=== PATIENT | female | born 1955 | race African-American/Black ===

== ENCOUNTER 2016-03-30 09:15 | Inpatient (IN) ==
[2016-03-30] MEDS ORDERED: FUROSEMIDE 100 MG/10 ML VIAL IV STA (09:32)
[2016-03-30] MEDS ORDERED: MORPHINE 2 MG/1 ML SYRINGE IV STA (09:55)
[2016-03-30 09:56] LABS: Allen Test Positive
[2016-03-30] MEDS ORDERED: MORPHINE 2 MG/1 ML SYRINGE ONE (09:56)
[2016-03-30 09:57] LABS: ABG Base Excess 20.4 MMOL/L (-2.5-2.5); ABG HCO3 44.6 MMOL/L (20-26); ABG PO2 59.9 MM HG (80-95); ABG TCO2 51.3 MMOL/L (23-27)
[2016-03-30 09:59] LABS: ABG PH 7.209 (7.35-7.45)
[2016-03-30] MEDS ORDERED: FUROSEMIDE 100 MG/10 ML VIAL ONE (10:06)
[2016-03-30 10:08] LABS: Basophils % 0.2 % (0.0-0.8); Eosinophils % 0.1 % (0.00-10.9); Hematocrit 44.8 VOL% (35.7-47.0); Hemoglobin 12.7 GM/DL (12.0-16.0); Immature Granulocytes % 1.6 %; Immature Granulocytes Absolute 0.15 #; Lymphocytes # 1.2 10*3/uL (1.4-4.0); Lymphocytes % 12.7 % (21.3-54.2); Mean Corpuscular HGB Conc 28.3 GM/DL (32-36); Mean Corpuscular Hemoglobin 28 PG (27-34); Mean Platelet Volume 10.1 FL (9.6-12.0); Monocytes # 0.5 10*3/uL (0.11-0.8); Monocytes % 4.9 % (1.7-12.7); NRBC # 0.03 10*3/uL; Neutrophils # 7.7 10*3/uL (1.4-7.4); Neutrophils % 80.5 % (38.7-73.9); Platelet Count 209 T/CUMM (130-400); Red Blood Count 4.62 MC/CUMM (3.8-5.5); Red Cell Distribution Width 15.3 % (9.3-17.3); White Blood Count 9.6 T/CUMM (4-12)
--- NOTE | 2016-03-30 10:24 | EKG Report ---
Stationary ECG Study [facility] ER Test Date: 03/30/2016 10:23:10 AM Pat Name: TAMARA CLARK Department: Room: 112 Gender: F Accounts Payable Representative: LETICIA : 1955 Requested by: Moody Gerardo Order Number: [id number] Reading MD: ARNULFO ALMENDAREZ Intervals [place] Rate: 84 P: 71 NC: 163 QRS: 96 QRSD: 99 T: 55 QT: 366 QTc: 407 Interpretive Statements SINUS RHYTHM WITH OCCASIONAL VENTRICULAR PREMATURE COMPLEXES WITH OCCASIONAL SUPRAVENTRICULAR PREMATURE COMPLEXES Electronically Signed On 04-01-16 14:44:25 MANAGER WINTER by ARNULFO ALMENDAREZ [email or web address]
[2016-03-30 10:45] LABS: Alanine Aminotransferase 25 U/L (13-56); Albumin 3.3 G/DL (3.4-5.0); Alkaline Phosphatase 73 U/L (45-117); Aspartate Amino Transferase 17 U/L (0-37); Blood Urea Nitrogen 27 MG/DL (7-18); Calcium 8.5 MG/DL (8.5-10.1); Glucose 122 MG/DL (74-106); Osmolality,Calculated 280.7 MOS/KG (273-304); Potassium 4.4 MMOL/L (3.5-5.1); Sodium 138 MMOL/L (136-145); Total Protein 7.8 G/DL (6.4-8.3); Troponin I Only 0.027 NG/ML (0.00-0.045)
[2016-03-30] MEDS ORDERED: AMIODARONE 150 MG/3 ML VIAL ONE (10:45)
[2016-03-30] MEDS ORDERED: EPINEPHrine 1 MG/ML VIAL ONE (10:45)
[2016-03-30] MEDS ORDERED: ETOMIDATE 20 MG/10 ML VIAL IV ONE (10:56)
[2016-03-30] MEDS ORDERED: SUCCINYLCHOLINE 200 MG/10 ML VIAL ONE (10:57)
[2016-03-30] MEDS ORDERED: MIDAZOLAM 2 MG/2 ML VIAL ONE ×2 (11:00→12:19)
--- NOTE | 2016-03-30 11:08 | EKG Report ---
Stationary ECG Study [facility] ER Test Date: 03/30/2016 10:53:59 AM Pat Name: TAMARA CLARK Department: Room: 112 Gender: F Faculty Neuropsychologist: LETICIA : 1955 Requested by: Moody Gerardo Order Number: [id number] Reading MD: ARNULFO ALMENDAREZ Intervals [place] Rate: 69 P: 77 IA: 157 QRS: 62 QRSD: 127 T: 85 QT: 359 QTc: 377 Interpretive Statements SINUS RHYTHM LEFT ATRIAL ABNORMALITY Electronically Signed On 04-01-16 15:07:39 COMBAT SYSTEMS OPERATOR by ARNULFO ALMENDAREZ [email or web address]
--- NOTE | 2016-03-30 11:11 | Emergency Department Note ---
ISerafin Brittany, am scribing for, and in the presence of, Sherif Leyva MD 09:36. Gordon Ortiz Doug C, MD, personally performed the services described in this documentation, ascribed by Reyna Betancourt in my presence, and it is both accurate and complete . Arrival - Arrival Chief Complaint: Altered Mental Status Stated Complaint: DIFFICULTY BREETHING/SWELLING ED Nursing Triage Note: Family states that she has been drowsy and having decreased LOC x 3 days - family states that they think that it is from some medicine that she is taking - family did not bring meds and does not know name of the meds that she is taking - pt is on home O2 - family states that she has a lung disease - family is unsure of any of her medical HX Mode of Arrival: Wheelchair Limitations: No Limitations Source: Patient, RN Notes Reviewed Time Seen by Provider: 03/30/16 09:32 - History of Present Illness HPI Narrative: Patient's 60-year-old black female brought to emergency room by family for decreased responsiveness. Daughter states she has had more dyspnea than usual though she is always dyspneic. She does have a history of asthma but she never had a history of CO2 retention according to the daughter. She does have a history of congestive heart failure as well. Patient was responsive but confused. Arterial blood gas show prominent hypercarbia. She has not had any fever chills according the family and she has not had any complaints of chest pain. Her cough is not increased. Onset (ago): day(s) (3) Date of Last Menstrual Period: eusebia Allergies/Adverse Reactions: Allergies Allergy/AdvReac Type Severity Reaction Status Date / Time No Known Allergies Allergy Unverified 03/30/16 09:17 Home Medications: Home Medications Medication Instructions Recorded Confirmed Type Azithromycin [Azithromycin Z Pack] 250 mg PO DAILY 03/30/16 03/30/16 History Carvedilol [Coreg] 25 mg PO BID 03/30/16 03/30/16 History Furosemide Tab [Lasix Tab] 40 mg PO TID 03/30/16 03/30/16 History Lisinopril 40 mg PO BID 03/30/16 03/30/16 History Montelukast Tab [Singulair Tab] 10 mg PO DAILY 03/30/16 03/30/16 History amLODIPine [Norvasc] 10 mg PO DAILY 03/30/16 03/30/16 History predniSONE TAB [PredniSONE] 40 mg PO DAILY 03/30/16 03/30/16 History Review of System - Review of System 12 point system: reviewed and no additional remarkable complaints except as stated - Review of System Constitutional: Present: as per HPI. Absent: chills, fever Eyes: Absent: vision change Head/Ears/Nose/Throat: Present: sore throat. Absent: nasal drainage Respiratory: Present: respiratory distress. Absent: cough Cardiovascular: Absent: chest pain Gastrointestinal: Absent: abdominal pain, nausea, vomiting, diarrhea, constipation Genitourinary female: Absent: dysuria, frequency, urgency Musculoskeletal: Absent: arm pain, back pain, leg pain, neck pain Skin: Absent: rash Neurological: Present: confusion. Absent: headache Psychiatric: Absent: anxiety, depression Endocrine: Absent: fatigue Hematological/Lymphatic: Absent: easy bleeding, easy bruising Medical,Surgical,& Family Hx - Medical History Cardio: History of: Hypertension Respiratory: History of: Asthma, Respiratory Problems ("lung disease") - Surgical History Surgical History: noncontributory - Family History Family History: noncontributory - Social History Smoking Status: Never smoker Frequency of Alcohol Use: None Type of Drug Use: None Exam Vital Signs: Vital Signs Temperature 98.6 F 03/30/16 09:18 Pulse Rate 90 03/30/16 09:18 Respiratory Rate 40 H 03/30/16 09:36 Blood Pressure 172/104 03/30/16 09:18 O2 Sat by Pulse Oximetry 92 L 03/30/16 09:18 - General General appearance: alert (patient is alert, but is slightly confused), in no apparent distress, lethargic - Head Head exam: Present: atraumatic, normocephalic - Eye Eye exam: Present: normal appearance, PERRL, EOMI - ENT ENT exam: Present: normal oropharynx, mucous membranes moist - Neck Neck exam: Present: full ROM, trachea midline. Absent: normal inspection - Expanded Expanded Neck Exam Neck exam focused ED: Present: JVD - Chest Chest inspection: Present: normal inspection, symmetric chest wall rise - Respiratory Respiratory exam: Present: rales (Bilateral). Absent: normal lung sounds bilaterally - Cardiovascular Cardiovascular exam: Present: regular rate, normal rhythm, normal heart sounds ( Heart sounds are distant). Absent: murmur, rubs, gallop - Abdominal Exam Abdominal exam: Present: soft, normal bowel sounds. Absent: distention, tenderness, guarding, rebound - Extremities Exam Extremities exam: Present: normal inspection, full ROM - Back Exam Back exam: Present: normal inspection, full ROM - Neurological Exam Neurological exam: Present: alert, CN II-XII intact. Absent: oriented X3 ( patient is slightly confused), motor sensory deficit - Psychiatric Psychiatric exam: Present: normal affect - Skin Skin exam: Present: warm, dry, intact, normal color Course Course Narrative: Patient's confusion was suspected to be secondary to hypercarbia and her arterial blood gases confirm this. Patient was placed on BiPAP briefly with no improvement. I discussed with the family the need to intubate her and they agreed. Patient was intubated with a 7 mm ET tube with ET tube at 22 mm at the lip. Patient was found to have bilateral breath sounds and her CO2 indicator was positive. She did develop some bradycardia postintubation requiring brief CPR. She responded to epinephrine. She did have brief runs of V. tach which was controlled with 1 dose of amiodarone. She has been hyperventilated to help resolve her hypercarbia. I discussed her circumstance with family and they were certainly agreeable to her being managed on the ventilator. I discussed patient with Dr. Camacho he will will see the patient here in the emergency department and evaluate for admission. Procedures - Intubation Time out performed: Yes sedative: Etomidate Mg Given: 20 paralytic: Succinylcholine Mg Given: 100 Laryngoscope: fiber optic video scope ET Tube Size: 7 ET Tube Uncuffed: No Tube Secured Depth (cm): 22 Tube Secured Location: lips Tube Placement Confirmation: visualized tube passing through cords, equal breath sounds bilaterally, confirmation detector color change Patient Tolerated Procedure: well Intubation Complications: other (Bradycardia) Results - Labs CBC & BMP: 03/30/16 10:01 03/30/16 10:01 Lab Results: I have reviewed the patients labs Labs: Laboratory Tests 03/30/16 09:50 ABG pH 7.209 L* ABG pCO2 142.0 H* ABG pO2 59.9 L ABG HCO3 44.6 H ABG Total CO2 51.3 H ABG O2 Saturation 82.0 L ABG Base Excess 20.4 H FiO2 28.00 Laboratory Tests 03/30/16 10:03 POC Glucose 127 H Laboratory Tests 03/30/16 10:01 WBC 9.6 RBC 4.62 Hgb 12.7 Hct 44.8 MCV 97.0 MCH 28 MCHC 28.3 L RDW 15.3 Plt Count 209 MPV 10.1 Neut % (Auto) 80.5 H Lymph % (Auto) 12.7 L [place] % (Auto) 4.9 Eos % (Auto) 0.1 Baso % (Auto) 0.2 Neut # (Auto) 7.7 H Lymph # (Auto) 1.2 L [place] # (Auto) 0.5 Eos # (Auto) 0.0 Baso # (Auto) 0.0 Immature Gran % 1.6 Nucleated RBC % 0.3 Immature Gran # 0.15 Nucleated RBCs # 0.03 Laboratory Tests 03/30/16 10:01 D-Dimer, Quantitative <= 0.5 - EKG EKG results: interpreted by ALEXIS, sinus rhythm (84 bpm), no acute changes - Diagnostic Findings Procedure: Chest x-ray: report reviewed by me (Cardiomegaly) Disposition Clinical Impression: Respiratory failure, Hypercarbia Case discussed with: patient's family Disposition: Still a Patient Condition: Guarded Time of Disposition: 11:10
[2016-03-30] MEDS ORDERED: MIDAZOLAM 10 MG/2 ML VIAL ONE (11:24)
--- NOTE | 2016-03-30 11:38 | XRay Report ---
Exam: XR chest 1V portable Indication: Cardiomegaly, shortness of breath Comparison study: 09/14/2013 Findings: Cardiac silhouette is enlarged, similar to prior. Mild tortuosity descending thoracic aorta appears similar to prior. Minimal perihilar and basilar interstitial opacities may represent atelectasis or degree of mild underlying edema. Infectious/limited infiltrates are less likely consideration. There is no pneumothorax. Impression: Cardiomegaly with perihilar and basilar opacities likely represent atelectasis although pulmonary degenerative changes and/or basilar infiltrates are not entirely excluded. PROCEDURE INTERPRETED AT [facility] DEPARTMENT OF RADIOLOGY Final Report Signed by: Noé Cordova
--- NOTE | 2016-03-30 11:49 | Hospitalist History & Physical ---
Assessment and Plan - Time spent with patient Time spent with patient: Greater than 30 minutes (1) Congestive heart failure with cardiomyopathy Status: Acute Current Visit: Yes (2) Hypertension Status: Acute Current Visit: Yes (3) Hypercarbia Status: Acute Current Visit: Yes (4) Respiratory failure Status: Acute Current Visit: Yes History of Present Illness Chief complaint: shortness of breath with worsening mentation History of present illness: Ms. Welsh is a 60 year old -Citizen Of [place] female brought to emergency room by family for decreased responsiveness. Patient is currently intubated and information is obtained from her daughter. Daughter states she has had more dyspnea than usual though she is always dyspneic. She does have a history of asthma but she never had a history of CO2 retention according to the daughter. She does have a history of congestive heart failure as well. Patient was responsive but confused. Arterial blood gas show prominent hypercarbia. She has not had any fever chills according the family and she has not had any complaints of chest pain. Her cough is not increased. Patient woke the daughter up at about 3 and the morning complaining of worsening shortness of breath. Patient started a states that patient has never been intubated in the past but does have home oxygen. Patient does not smoke. There is a history of heart failure but I can't get to see any records in this system. The PCI system is not available. According to the daughter patient was seeing Dr. Santana Bray from pulmonary and I see another finished metal repairer. She does not recall seeing a wet mixer. Her chest x-ray shows some basilar atelectasis versus infiltrate there is also perihilar area that seems to have increased markings, she also has cardiomegaly although this is an AP film. She is being admitted to our service for further management. Assessment and plan for 03/30/2016: Acute hypercapnic respiratory failure Probably component of congestive heart failure exacerbation Cardiomegaly on chest x-ray Hypertension Patient is being admitted to the intensive care unit. She will be sedated we will go ahead and start her on antibiotics especially for aspiration pneumonia since I did see that she had vomited some. She will be placed on nebulizer treatments and pulmonary will be consulted for vent management. We will also get an echocardiogram and she'll be gently diuresed. Lovenox will be used for DVT prophylaxis. Rest of the management will be based on patient's medical condition laboratory and radiological data. Home Medications Medication Instructions Recorded Confirmed Type Azithromycin [Azithromycin Z Pack] 250 mg PO DAILY 03/30/16 03/30/16 History Carvedilol [Coreg] 25 mg PO BID 03/30/16 03/30/16 History Furosemide Tab [Lasix Tab] 40 mg PO TID 03/30/16 03/30/16 History Lisinopril 40 mg PO BID 03/30/16 03/30/16 History Montelukast Tab [Singulair Tab] 10 mg PO DAILY 03/30/16 03/30/16 History amLODIPine [Norvasc] 10 mg PO DAILY 03/30/16 03/30/16 History predniSONE TAB [PredniSONE] 40 mg PO DAILY 03/30/16 03/30/16 History Allergies Allergy/AdvReac Type Severity Reaction Status Date / Time No Known Allergies Allergy Unverified 03/30/16 09:17 Medical,Surgical,& Family Hx - Medical History Cardio: History of: CHF, Hypertension Respiratory: History of: Asthma, Respiratory Problems ("lung disease") - Surgical History Reproductive Surgeries: Surgical HX of;: Hysterectomy - Social History Smoking Status: Never smoker Frequency of Alcohol Use: None Type of Drug Use: None Lives With:: Children Functional capacity: independent ambulation ROS unobtainable: due to endotracheal tube Exam - Constitutional Vitals: Period Temp Pulse Resp BP Sys/Richards Pulse Ox Last 24 Hr 98.6 F-98.6 F 90-90 22-40 172-172/104-104 92 Exam: Gen.: In no acute distress, mildly sedated Head and neck: Pupils are reactive neck is supple Cardiovascular: S1-S2 with regular rate and rhythm Respiratory: Lungs reveal mild rales and rhonchi but no significant wheezing Abdomen: Soft, bowel sounds are positive Extremities: Positive edema Neuro: Intubated and sedated Results - Labs CBC & BMP: 03/30/16 10:01 03/30/16 10:01 Lab Results: I have reviewed the past 24 hour labs
[2016-03-30] MEDS ORDERED: MIDAZOLAM 10 MG/2 ML VIAL IV STA (11:56)
[2016-03-30 12:00] LABS: Apearance,Urine CLEAR (Clear); Bacteria,Urine Occasional /HPF (Few); Bilirubin,Urine Negative (Negative); Blood, Urine Negative (Negative); Glucose,Urine (UA) Negative (Negative); Hyaline Casts,Urine 14 /LPF (0-3); Ketones,Urine Negative (Negative); Mucus,Urine Occasional /LPF (Occasional); Nitrite,Urine Negative (Negative); Protein,Urine 100 MG/DL; RBC,Urine <1 /HPF (0-4); Squamous Epithelial Cell,Urine Occasional /HPF (0-10); Urine Color Yellow (Yellow); WBC,Urine 1 /HPF (0-6)
[2016-03-30] MEDS ORDERED: MIDAZOLAM 100 MG in SODIUM CHLORIDE 0.9% 80 ML IV SCH (12:00)
[2016-03-30 12:13] LABS: Barbiturates Screen,Urine Negative (Negative); Benzodiazepines Screen,Urine Negative (Negative); Cannabinoid Screen,Urine Negative (Negative); Opiate Screen,Urine Negative (Negative); Phencyclidine Screen,Urine Negative (Negative)
[2016-03-30 12:15] LABS: ABG Base Excess 20.7 MMOL/L (-2.5-2.5); ABG HCO3 45.5 MMOL/L (20-26); ABG TCO2 39.7 MMOL/L (23-27)
[2016-03-30 12:16] LABS: ABG PH 7.614 (7.35-7.45)
[2016-03-30] MEDS ORDERED: MIDAZOLAM 2 MG/2 ML VIAL IV STA (12:31)
--- NOTE | 2016-03-30 12:51 | XRay Report ---
Exam: XR chest 1V portable Indication: Intubated, respiratory failure Comparison study: 03/30/2016 at 0950 hours Findings: Cardiac silhouette is enlarged, similar to prior. There is been interval placement of an endotracheal tube terminates 4 cm from the roman. Esophagogastric tube is also noted and travels below the field of view. Perihilar and basilar interstitial opacities are new from the prior study and may represent pulmonary edema changes. There is no pneumothorax. No significant pleural effusion is identified. Impression: Cardiomegaly with findings suggestive of pulmonary edema changes. Endotracheal and esophagogastric tubes as noted above. PROCEDURE INTERPRETED AT [facility] [place] DEPARTMENT OF RADIOLOGY Final Report Signed by: Noé Cordova
[2016-03-30] MEDS: PANTOPRAZOLE 40 MG VIAL IV SCH (13:45)
[2016-03-30] MEDS: PIPERACILLIN/TAZOBACTAM 3,375 MG in SODIUM CHLORIDE 0.9% 100 ML IV SCH ×2 (13:45→19:22)
[2016-03-30] MEDS: methylPREDNISolone SOD SUC 40 MG/1 ML VIAL IV SCH ×2 (13:45→18:04)
[2016-03-30] MEDS: ENOXAPARIN 40 MG/0.4 ML SYRINGE SUBCUT SCH (13:46)
[2016-03-30 13:52] LABS: ABG Base Excess 22.5 MMOL/L (-2.5-2.5); ABG HCO3 47.6 MMOL/L (20-26); ABG PCO2 46.7 MM HG (35-48); ABG TCO2 41.5 MMOL/L (23-27)
[2016-03-30 13:53] LABS: ABG PH 7.619 (7.35-7.45)
[2016-03-30] MEDS: PROPOFOL 1,000 MG/100 ML BOTTLE IV SCH ×2 (14:30→21:33)
[2016-03-30] MEDS: ALBUTEROL/IPRATROPIUM 3 ML NEB RESP TX SCH ×3 (14:47→22:54)
[2016-03-30 15:04] LABS: ABG Base Excess 22.9 MMOL/L (-2.5-2.5); ABG HCO3 47.9 MMOL/L (20-26); ABG Oxygen Saturation 98.5 % (95-100); ABG PCO2 55.9 MM HG (35-48); ABG PH 7.558 (7.35-7.45); ABG PO2 96.3 MM HG (80-95); ABG TCO2 43.3 MMOL/L (23-27); Allen Test Positive; Pt O2 Delivery Device Ventilator
[2016-03-30] MEDS: AZITHROMYCIN INJ 500 MG in SODIUM CHLORIDE 0.9% 250 ML IV SCH (17:27)
--- NOTE | 2016-03-30 19:55 | Pulmonology Consult Note ---
Assessment and Plan (1) Acute and chronic respiratory failure with hypercapnia Status: Acute Assessment and plan: With her marked hypercarbia and decreased level of consciousness, she clearly has acute respiratory failure. Her pH is alkalotic despite hypercarbia which would indicate chronic respiratory failure. Because of the respiratory failure is not clear. She is said to have never smoked. She does not appear to be having a severe asthma attack. She may have obesity hypoventilation syndrome or some form of central hypoventilation. We need to evaluate her brain. At this point I will give her Diamox to try to correct her electrolyte abnormalities. We will ventilate her until her mental status improves. We need further past history when available. Current Visit: Yes (2) Asthma Status: Acute Assessment and plan: Reportedly has history of asthma. She certainly does not sound tight. We'll treat for asthma exacerbation with steroids bronchodilators plus empiric antibiotics. Add Aminophyllin. Current Visit: Yes (3) Congestive heart failure with cardiomyopathy Status: Acute Assessment and plan: Agree with diuresing her. Her BNP was somewhat elevated. Echocardiogram is pending. May need cardiology to see. She has an abnormal contour to her heart on the chest x-ray. Current Visit: Yes History of Present Illness Chief complaint: respiratory failure History of present illness: Ms. Welsh is a 60 year old female who was noted to have decreased level of consciousness after having increased shortness of breath. She was found to be profoundly hypercarbic and was intubated. Also had hypotension that responded to epinephrine after the intubation. She was given amiodarone for arrhythmias. She has a history of asthma and congestive heart failure. Reportedly has never been a smoker. Has been followed in the past by Dr. Bray. We will need to get records when available. She has not had any recent chills or fever according to the family. The patient is on oxygen at home. She has no history of previous mechanical ventilation. Home Medications Medication Instructions Recorded Confirmed Type Azithromycin [Azithromycin Z Pack] 250 mg PO DAILY 03/30/16 03/30/16 History Carvedilol [Coreg] 25 mg PO BID 03/30/16 03/30/16 History Furosemide Tab [Lasix Tab] 40 mg PO TID 03/30/16 03/30/16 History Lisinopril 40 mg PO BID 03/30/16 03/30/16 History Montelukast Tab [Singulair Tab] 10 mg PO DAILY 03/30/16 03/30/16 History amLODIPine [Norvasc] 10 mg PO DAILY 03/30/16 03/30/16 History predniSONE TAB [PredniSONE] 40 mg PO DAILY 03/30/16 03/30/16 History Allergies Allergy/AdvReac Type Severity Reaction Status Date / Time No Known Allergies Allergy Unverified 03/30/16 09:17 ROS unobtainable: due to endotracheal tube Exam (Pulmonay) H&P - Constitutional Vitals: Period Temp Pulse Resp BP Sys/Richards Pulse Ox Last 24 Hr 98.1 F-98.6 F 60-75 8-21 111-166/75-98 100-100 Exam: Patient is sedated and unresponsive. Vital signs blood pressure 160/80 pulse 80 respirations 16 oxygen saturation 99% and patient is afebrile. Pupils react to light. She does try to close her eyes when I attempt to look at her eyes. Face symmetrical. Orotracheal tube in place. Neck is supple no bruits. Chest reveals a few scattered rhonchi. She is not tight. Good breath sounds bilaterally. Heart normal rate rhythm no murmurs or rubs no gallops. Abdomen soft nontender no masses bowel sounds present. Extremities no clubbing or cyanosis she does have 2+ peripheral edema. Medical,Surgical,& Family Hx - Medical History Cardio: History of: Cerebrovascular Disease, CHF, Hypertension Neurology: History of: Cerebrovascular Accident (2007) Respiratory: History of: Asthma, Respiratory Problems ("lung disease") - Surgical History Reproductive Surgeries: Surgical HX of;: Hysterectomy - Family History Family History: Reports;: Family Diabetes, Family Heart Disease, Family Hypertension, Additional Family History (DEMENTIA, COPD) - Social History Smoking Status: Never smoker Frequency of Alcohol Use: None Type of Drug Use: None Results - Labs CBC & BMP: 03/30/16 10:01 03/30/16 10:01 Lab Results: I have reviewed the past 24 hour labs - Diagnostic Findings Procedure: Chest x-ray: image reviewed by me (ET tube good position. Cardiomegaly. Increased interstitial markings consistent with pulmonary edema.)
[2016-03-30] MEDS ORDERED: AMINOPHYLLINE 250 MG in SODIUM CHLORIDE 0.9% 100 ML IV ONE (21:00)
[2016-03-30] MEDS: AMINOPHYLLINE 1,000 MG in SODIUM CHLORIDE 0.9% 460 ML IV SCH (21:34)
[2016-03-30] MEDS: FUROSEMIDE 40 MG/4 ML VIAL IV SCH (22:51)
[2016-03-31] MEDS: PIPERACILLIN/TAZOBACTAM 3,375 MG in SODIUM CHLORIDE 0.9% 100 ML IV SCH ×4 (01:23→18:32)
[2016-03-31] MEDS: methylPREDNISolone SOD SUC 40 MG/1 ML VIAL IV SCH ×4 (01:26→18:33)
[2016-03-31] MEDS: ALBUTEROL/IPRATROPIUM 3 ML NEB RESP TX SCH ×6 (03:36→23:59)
[2016-03-31 06:01] LABS: ABG PCO2 51.4 MM HG (35-48); Allen Test Positive; Pt O2 Delivery Device Ventilator
[2016-03-31 06:02] LABS: ABG HCO3 43.4 MMOL/L (20-26); ABG PO2 80.9 MM HG (80-95); ABG TCO2 38.9 MMOL/L (23-27)
[2016-03-31 06:13] LABS: Hematocrit 41.5 VOL% (35.7-47.0); Hemoglobin 12.9 GM/DL (12.0-16.0); Immature Granulocytes % 0.4 %; Immature Granulocytes Absolute 0.04 #; Lymphocytes # 0.8 10*3/uL (1.4-4.0); Lymphocytes % 8.9 % (21.3-54.2); Mean Corpuscular HGB Conc 31.1 GM/DL (32-36); Mean Corpuscular Hemoglobin 27 PG (27-34); Mean Corpuscular Volume 88.1 FL (87-102); Monocytes # 0.6 10*3/uL (0.11-0.8); Neutrophils # 7.7 10*3/uL (1.4-7.4); Neutrophils % 84.7 % (38.7-73.9); Platelet Count 198 T/CUMM (130-400); Red Blood Count 4.71 MC/CUMM (3.8-5.5); Red Cell Distribution Width 15.5 % (9.3-17.3); White Blood Count 9.1 T/CUMM (4-12)
[2016-03-31 06:41] LABS: Calcium 8.9 MG/DL (8.5-10.1); Magnesium 1.8 MG/DL (1.8-2.4); Potassium 3.2 MMOL/L (3.5-5.1)
[2016-03-31] MEDS: PROPOFOL 1,000 MG/100 ML BOTTLE IV SCH ×3 (06:56→16:49)
--- NOTE | 2016-03-31 06:57 | Pulmonology Progress Note ---
Pulmonary - PN: Subj Interval history: This 60-year-old black female came in with decreased level of consciousness and required mechanical ventilation. She had severe hypercarbia. She reportedly has a history of asthma but does not have COPD. She's only mildly obese. She could have obesity hypoventilation syndrome. She has an abnormal cardiac shadow and evidence of left atrial enlargement on EKG. We need echocardiogram. We need neurology to see. Not clear why she would have chronic hypoventilation. She has seen Dr. Bray in the past and we need records from his clinic for previous evaluations. At the present time she is on the ventilator. ABGs acceptable although she has a marked metabolic alkalosis. Trying to correct that. We'll hold sedation and start weaning her today. I'm going to change her from propofol to Precedex. Exam (Progress Note) - Constitutional Vitals: Period Temp Pulse Resp BP Sys/[place] Pulse Ox Last 24 Hr 97.1 F-98.6 F 60-85 8-21 111-168/71-98 100-100 Exam: She is sedated. However she hold her eyes closed when I try to look at her pupils. They do react to light. Face is symmetrical. Vital signs are normal. Blood pressure 150/75. Pulse is around 70 with frequent premature beats. Neck supple no bruits. Chest reveals only minimal rhonchi. She's not tight. Heart irregular without murmur. Abdomen soft nontender no masses. Bowel sounds present. Extremities no clubbing cyanosis. She has trace of edema, definitely less than yesterday. Results - Labs CBC & BMP: 03/31/16 05:14 03/31/16 05:14 Lab Results: I have reviewed the past 24 hour labs - Diagnostic Findings Procedure: Chest x-ray: image reviewed by me (ETT in good position. He has bilateral lower lobe infiltrates today.) Assessment and Plan (1) Acute and chronic respiratory failure with hypercapnia Status: Acute Assessment and plan: With her marked hypercarbia and decreased level of consciousness, she clearly has acute respiratory failure. Her pH is alkalotic despite hypercarbia which would indicate chronic respiratory failure. Because of the respiratory failure is not clear. She is said to have never smoked. She does not appear to be having a severe asthma attack. She may have obesity hypoventilation syndrome or some form of central hypoventilation. We need to evaluate her brain. At this point I will give her Diamox to try to correct her electrolyte abnormalities. We will ventilate her until her mental status improves. We need further past history when available. 03/31/16 acute on chronic respiratory failure. The etiology of her chronic hypercapnia is not clear. Evaluating today for a central cause. She does have infiltrates on the films today. Appears to have a bilateral pneumonia. Current Visit: Yes (2) Asthma Status: Acute Assessment and plan: Reportedly has history of asthma. She certainly does not sound tight. We'll treat for asthma exacerbation with steroids bronchodilators plus empiric antibiotics. Add Aminophyllin. 03/31/16 she's not tight. Continuing with above regimen. Current Visit: Yes (3) Congestive heart failure with cardiomyopathy Status: Acute Assessment and plan: Agree with diuresing her. Her BNP was somewhat elevated. Echocardiogram is pending. May need cardiology to see. She has an abnormal contour to her heart on the chest x-ray. 03/31/16 white echo. It appears that she has left atrial enlargement on chest x- ray and EKG. We'll see what the echo shows. Current Visit: Yes (4) Pneumonia of both lower lobes Status: Acute Assessment and plan: She does have basilar infiltrates bilaterally. This despite the fact that we have diuresed her. We'll start on appropriate antibiotics. Current Visit: Yes
--- NOTE | 2016-03-31 07:28 | XRay Report ---
XR chest 1V portable Indication: Respiratory failure Comparison: 30 March 2016 Findings: The heart and mediastinum are stable in size and configuration. Lines and tubes are unchanged in position. The pulmonary vascularity is slightly increased with bilateral increased interstitial lung density. No other lung infiltrates, effusions, pneumothorax or other abnormality is demonstrated. Impression: Findings suggest mild cardiac decompensation. PROCEDURE INTERPRETED AT [facility] DEPARTMENT OF RADIOLOGY Final Report Signed by: Dr. Sebastián Madrigal
[2016-03-31] MEDS ORDERED: DEXMEDETOMIDINE 200 MCG in SODIUM CHLORIDE 0.9% 48 ML IV SCH (07:30)
--- NOTE | 2016-03-31 08:35 | CT Report ---
CT brain Indication: Decreasing level of consciousness Comparison: None available Technique: Axial CT imaging of the brain is performed without contrast with 3 mm increments. Findings: No evidence of hemorrhage, mass mass effect midline shift or acute infarct seen. The brain parenchyma attenuation and differentiation appears within normal limits. The ventricles and cisterns are normal in caliber. No cranial or skull base abnormality is identified. Impression: No evidence of abnormality demonstrated. PROCEDURE INTERPRETED AT [facility] DEPARTMENT OF RADIOLOGY Final Report Signed by: Dr. Sebastián Madrigal
[2016-03-31] MEDS: PANTOPRAZOLE 40 MG VIAL IV SCH (09:41)
[2016-03-31] MEDS: MONTELUKAST 10 MG TABLET PO SCH (09:47)
[2016-03-31] MEDS: FUROSEMIDE 40 MG/4 ML VIAL IV SCH (09:54)
[2016-03-31] MEDS: AZITHROMYCIN INJ 500 MG in SODIUM CHLORIDE 0.9% 250 ML IV SCH (10:30)
--- NOTE | 2016-03-31 11:00 | Hospitalist Progress Note ---
Assessment and Plan (1) Congestive heart failure with cardiomyopathy Status: Acute Current Visit: Yes (2) Hypertension Status: Acute Current Visit: Yes (3) Hypercarbia Status: Acute Current Visit: Yes (4) Respiratory failure Status: Acute Current Visit: Yes Hospitalist: Subjective Interval history: Patient doing very well. She is responsive awake and alert and following commands. Assessment plan for 03/31/2016: Acute respiratory failure History of asthma Enlarged heart Patient is clinically much improved and hopefully can be extubated very soon. We are deferring this to pulmonary who is following her and is doing vent management. Mental status is back to normal and I've discontinued neurologic consult. Chest x-ray does show an enlarged heart and we are waiting echocardiogram. Continue Lasix for now. Continue antibiotics and nebulizer treatments Exam - Constitutional Vitals: Period Temp Pulse Resp BP Sys/Richards Pulse Ox Last 24 Hr 97.1 F-98.6 F 60-85 8-21 111-168/71-98 100-100 Exam: Gen.: In no acute distress, mildly sedated Head and neck: Pupils are reactive neck is supple Cardiovascular: S1-S2 with regular rate and rhythm Respiratory: Lungs reveal mild rales and rhonchi but no significant wheezing Abdomen: Soft, bowel sounds are positive Extremities: Positive edema Neuro: Intubated but follows commands Results - Labs CBC & BMP: 03/31/16 05:14 03/31/16 05:14 Lab Results: I have reviewed the past 24 hour labs
[2016-03-31] MEDS: ENOXAPARIN 40 MG/0.4 ML SYRINGE SUBCUT SCH (12:07)
[2016-03-31] MEDS: POTASSIUM CHLORIDE RIDER 10 MEQ in PREMIX 1 EACH IV PRN ×4 (16:00→20:16)
[2016-03-31] MEDS: AMINOPHYLLINE 1,000 MG in SODIUM CHLORIDE 0.9% 460 ML IV SCH (21:59)
[2016-04-01] MEDS: FUROSEMIDE 40 MG/4 ML VIAL IV SCH (01:34)
[2016-04-01] MEDS: PIPERACILLIN/TAZOBACTAM 3,375 MG in SODIUM CHLORIDE 0.9% 100 ML IV SCH ×5 (02:23→22:30)
[2016-04-01] MEDS: ALBUTEROL/IPRATROPIUM 3 ML NEB RESP TX SCH ×6 (03:40→23:52)
[2016-04-01 05:32] LABS: Hematocrit 43.9 VOL% (35.7-47.0); Hemoglobin 13.5 GM/DL (12.0-16.0); Immature Granulocytes % 0.6 %; Immature Granulocytes Absolute 0.07 #; Lymphocytes # 1.8 10*3/uL (1.4-4.0); Lymphocytes % 14.2 % (21.3-54.2); Mean Corpuscular HGB Conc 30.8 GM/DL (32-36); Mean Corpuscular Hemoglobin 27 PG (27-34); Mean Corpuscular Volume 89.2 FL (87-102); Mean Platelet Volume 10.3 FL (9.6-12.0); Monocytes # 1.1 10*3/uL (0.11-0.8); Monocytes % 9.2 % (1.7-12.7); Neutrophils # 9.4 10*3/uL (1.4-7.4); Platelet Count 198 T/CUMM (130-400); Red Blood Count 4.92 MC/CUMM (3.8-5.5); Red Cell Distribution Width 15.8 % (9.3-17.3); White Blood Count 12.4 T/CUMM (4-12)
[2016-04-01 05:52] LABS: ABG Base Excess 14.9 MMOL/L (-2.5-2.5); ABG HCO3 39.3 MMOL/L (20-26); ABG Oxygen Saturation 97.9 % (95-100); ABG PCO2 46.4 MM HG (35-48); ABG PH 7.546 (7.35-7.45); ABG PO2 100.9 MM HG (80-95); ABG TCO2 40.7 MMOL/L (23-27); Allen Test Positive; Pt O2 Delivery Device Ventilator
--- NOTE | 2016-04-01 06:52 | Pulmonology Progress Note ---
Pulmonary - PN: Subj Interval history: This 60-year-old black female came in with decreased level of consciousness and required mechanical ventilation. She had severe hypercarbia. She reportedly has a history of asthma but does not have COPD. She's only mildly obese. She could have obesity hypoventilation syndrome. She has an abnormal cardiac shadow and evidence of left atrial enlargement on EKG. We need echocardiogram. We need neurology to see. Not clear why she would have chronic hypoventilation. She has seen Dr. Bray in the past and we need records from his clinic for previous evaluations. At the present time she is on the ventilator. ABGs acceptable although she has a marked metabolic alkalosis. Trying to correct that. We'll hold sedation and start weaning her today. I'm going to change her from propofol to Precedex. 04/01/2016 patient is much more alert. Tolerating CPAP trials. Still has a pretty severe metabolic alkalosis. We will once again check mechanics and ABGs on CPAP trial. Try to get her extubated. Her potassium is a little older replacing that. We'll reduce Lasix. Continue with Diamox. Records from Dr. Bray's office showed that she has chronic obstructive lung disease and pulmonary hypertension. Also said to have congestive heart failure. They did not send any echocardiograms. Echo from here is pending. Exam (Progress Note) - Constitutional Vitals: Period Temp Pulse Resp BP Sys/Richards Pulse Ox Last 24 Hr 98.2 F-98.8 F 58-90 1-27 73-175/61-97 97-100 Exam: She is alert and responsive, off sedation. Face is symmetrical. Vital signs are normal. Pulse is around 70 with frequent premature beats. Neck supple no bruits. Chest reveals only minimal rhonchi. She's not tight. Heart irregular without murmur. Abdomen soft nontender no masses. Bowel sounds present. Extremities no clubbing cyanosis. She has trace of edema. Results - Labs CBC & BMP: 04/01/16 05:09 03/31/16 05:14 Lab Results: I have reviewed the past 24 hour labs - Diagnostic Findings Procedure: Chest x-ray: pending Assessment and Plan (1) Acute and chronic respiratory failure with hypercapnia Status: Acute Assessment and plan: With her marked hypercarbia and decreased level of consciousness, she clearly has acute respiratory failure. Her pH is alkalotic despite hypercarbia which would indicate chronic respiratory failure. Because of the respiratory failure is not clear. She is said to have never smoked. She does not appear to be having a severe asthma attack. She may have obesity hypoventilation syndrome or some form of central hypoventilation. We need to evaluate her brain. At this point I will give her Diamox to try to correct her electrolyte abnormalities. We will ventilate her until her mental status improves. We need further past history when available. 03/31/16 acute on chronic respiratory failure. The etiology of her chronic hypercapnia is not clear. Evaluating today for a central cause. She does have infiltrates on the films today. Appears to have a bilateral pneumonia. 04/01/16 she has diuresed vigorously. Bicarbonate level is down to 39, which is still somewhat elevated. Tolerating CPAP trials. We will see if we can get her extubated this morning. Current Visit: Yes (2) Asthma Status: Acute Assessment and plan: Reportedly has history of asthma. She certainly does not sound tight. We'll treat for asthma exacerbation with steroids bronchodilators plus empiric antibiotics. Add Aminophyllin. 03/31/16 she's not tight. Continuing with above regimen. 04/01/16 again she is not tight minimal expiratory rhonchi. Continuing steroids and bronchodilators. Current Visit: Yes (3) Congestive heart failure with cardiomyopathy Status: Acute Assessment and plan: Agree with diuresing her. Her BNP was somewhat elevated. Echocardiogram is pending. May need cardiology to see. She has an abnormal contour to her heart on the chest x-ray. 03/31/16 Await echo. It appears that she has left atrial enlargement on chest x- ray and EKG. We'll see what the echo shows. 04/01/16 echo is still pending. She has diuresed vigorously. Current Visit: Yes (4) Pneumonia of both lower lobes Status: Acute Assessment and plan: She does have basilar infiltrates bilaterally. This despite the fact that we have diuresed her. We'll start on appropriate antibiotics. 04/01/16 continuing with empiric antibiotics. Also diuresing. Current Visit: Yes
[2016-04-01] MEDS ORDERED: FUROSEMIDE 40 MG/4 ML VIAL IV SCH (07:00)
[2016-04-01 07:08] LABS: Potassium 2.9 MMOL/L (3.5-5.1)
--- NOTE | 2016-04-01 07:18 | ECHO Report ---
Kathy Welsh Exam Date: 03/31/2016 09:20 Referring Physician: Technologist: Meera ESIPNOZA Age: 60 Ht (in): Wt (lb): Gender: F Exam Location: [facility] Echo Indications: asthma, Resp. failure, pneumonia, CHF, HTN BP: / HR: Rhythm: Sinus Technical Quality: IMPRESSIONS Normal left ventricular size, with moderate concentric hypertrophy, with normal systolic function. Estimated left ventricular ejection fraction 60%. Grade 1 diastolic dysfunction. Mildly increased right ventricular size, with normal systolic function and pulmonary pressure. Mild biatrial enlargement. Thickened mitral valve with mild mitral regurgitation. Aortic valve sclerosis without stenosis or regurgitation. Trace pericardial effusion. MEASUREMENTS (Male / Female) Normal Values 2D ECHO LV Diastolic Diameter PLAX 4.5 cm 4.2 - 5.9 / 3.9 - 5.3 cm LV Systolic Diameter PLAX 3.2 cm LV Fractional Shortening PLAX 28.5 % IVS Diastolic Thickness 1.7 cm 0.6 - 1.0 / 0.6 - 0.9 cm LVPW Diastolic Thickness 1.5 cm 0.6 - 1.0 / 0.6 - 0.9 cm RV Internal Dim ED PLAX 3.8 cm Aortic Root Diameter 2.3 cm LA Systolic Diameter LX 4.7 cm 3.0 - 4.0 / 2.7 - 3.8 cm DOPPLER TR Peak Velocity 266.0 cm/s TR Peak Gradient 28.3 mmHg FINDINGS Left Ventricle Normal left ventricular size, with moderate concentric hypertrophy, with normal systolic function. Estimated left ventricular ejection fraction 60%. Grade 1 diastolic dysfunction. Right Ventricle Mildly increased right ventricular size, with normal systolic function. Right Atrium Mildly dilated right atrium. Left Atrium Mildly dilated left atrium. Mitral Valve Thickened mitral valve with mild mitral regurgitation. Aortic Valve Aortic valve sclerosis without stenosis or regurgitation. Tricuspid Valve Morphologically normal tricuspid valve. Mild tricuspid valve regurgitation. Tricuspid regurgitation velocities suggest a PAP of 28.3 mmHg + RAP. Pulmonic Valve Morphologically normal pulmonic valve. Pericardium Trace pericardial effusion. Aorta Normal size aortic root and proximal ascending aorta. Surya Darby (Electronically Signed) Final Date: 01 April 2016 07:17
--- NOTE | 2016-04-01 07:19 | XRay Report ---
XR chest 1V portable Indication: Shortness of breath, intubation Comparison: 31 March 2016 Findings: The heart and mediastinum are stable in size and configuration. Endotracheal and NG tubes are unchanged in position. The pulmonary vascularity is improved with bilateral decrease in interstitial lung density. No other lung infiltrates, effusions, pneumothorax or other abnormality is demonstrated. Impression: Findings suggest improved cardiac decompensation. PROCEDURE INTERPRETED AT [facility] DEPARTMENT OF RADIOLOGY Final Report Signed by: Dr. Sebastián Madrigal
[2016-04-01] MEDS: methylPREDNISolone SOD SUC 40 MG/1 ML VIAL IV SCH ×2 (07:35→20:04)
[2016-04-01 08:29] LABS: Allen Test Positive; Pt O2 Delivery Device CPAP
[2016-04-01 08:32] LABS: ABG Base Excess 13.3 MMOL/L (-2.5-2.5); ABG HCO3 37.1 MMOL/L (20-26); ABG Oxygen Saturation 95.4 % (95-100); ABG PCO2 58.1 MM HG (35-48); ABG PO2 81.5 MM HG (80-95); ABG TCO2 34.7 MMOL/L (23-27)
[2016-04-01] MEDS: PANTOPRAZOLE 40 MG VIAL IV SCH (08:40)
[2016-04-01] MEDS: POTASSIUM CHLORIDE 20 MEQ/15 ML UDCUP PER TUBE PRN ×2 (08:41→10:36)
[2016-04-01] MEDS: MONTELUKAST 10 MG TABLET PO SCH (08:41)
[2016-04-01] MEDS: AZITHROMYCIN INJ 500 MG in SODIUM CHLORIDE 0.9% 250 ML IV SCH (08:42)
[2016-04-01] MEDS: PROPOFOL 1,000 MG/100 ML BOTTLE IV SCH ×3 (09:47→22:40)
--- NOTE | 2016-04-01 10:42 | Hospitalist Progress Note ---
Assessment and Plan (1) Metabolic alkalosis Status: Chronic Assessment and plan: High dose lasix use with normal renal and cardiac systolic performance Current Visit: Yes (2) Respiratory failure Status: Acute Assessment and plan: Alveolar hypoventilation due to metabolic derangement Current Visit: Yes Hospitalist: Subjective Interval history: 60 yo female with history of home O2 use who presented after period of shortness of breath with severe respiratory acidosis requiring intubation and mechanical ventilation. Current echocardiogram shows normal global LV systolic performance with normal RVSP. Has developed severe metabolic alkalosis subsequent to admission with initial CO2 content of 50 suggesting likely chronic process with secondary alveolar hyperventilation developing was on 120 mg per day of furosemide as outpatient. Weaning is underway CO2 content is down to 37. Exam - Constitutional Vitals: Period Temp Pulse Resp BP Sys/Richards Pulse Ox Last 24 Hr 98.2 F-98.8 F 58-88 1-25 73-163/61-94 97-100 General appearance: normal weight - Respiratory Respiratory exam: Present: clear to auscultation bilaterally. Absent: rales, rhonchi, wheezes - Cardiovascular Cardiovascular exam: Present: irregular rhythm (VPC) - GI/Abdominal GI/Abdominal exam: Present: normal bowel sounds. Absent: distended, organomegaly, tenderness - Extremities Exam Extremities exam: Absent: edema - Neurological Exam Neurological exam: Present: alert, oriented X3 Results - Labs CBC & BMP: 04/01/16 05:09 04/01/16 06:11
[2016-04-01] MEDS: POTASSIUM CHLORIDE 20 MEQ/15 ML UDCUP PO SCH ×3 (13:25→22:30)
[2016-04-01] MEDS: ENOXAPARIN 40 MG/0.4 ML SYRINGE SUBCUT SCH (13:25)
[2016-04-01] MEDS: AMINOPHYLLINE 1,000 MG in SODIUM CHLORIDE 0.9% 460 ML IV SCH (22:39)
[2016-04-02 03:33] LABS: ABG Base Excess 5.6 MMOL/L (-2.5-2.5); ABG HCO3 29.5 MMOL/L (20-26); ABG Oxygen Saturation 98.3 % (95-100); ABG PCO2 42.2 MM HG (35-48); ABG TCO2 25.8 MMOL/L (23-27); Allen Test Positive; Pt O2 Delivery Device Ventilator
[2016-04-02] MEDS: ALBUTEROL/IPRATROPIUM 3 ML NEB RESP TX SCH ×6 (03:43→23:35)
[2016-04-02 05:23] LABS: Calcium 8.4 MG/DL (8.5-10.1); Magnesium 2.2 MG/DL (1.8-2.4); Osmolality,Calculated 298.3 MOS/KG (273-304); Potassium 3.9 MMOL/L (3.5-5.1)
[2016-04-02] MEDS ORDERED: LIDOCAINE 1% 20 ML VIAL MISC INJ ONE (06:23)
--- NOTE | 2016-04-02 06:28 | Pulmonology Progress Note ---
Pulmonary - PN: Subj Interval history: This 60-year-old black female came in with decreased level of consciousness and required mechanical ventilation. She had severe hypercarbia. She reportedly has a history of asthma but does not have COPD. She's only mildly obese. She could have obesity hypoventilation syndrome. She has an abnormal cardiac shadow and evidence of left atrial enlargement on EKG. We need echocardiogram. We need neurology to see. Not clear why she would have chronic hypoventilation. She has seen Dr. Bray in the past and we need records from his clinic for previous evaluations. At the present time she is on the ventilator. ABGs acceptable although she has a marked metabolic alkalosis. Trying to correct that. We'll hold sedation and start weaning her today. I'm going to change her from propofol to Precedex. 04/01/2016 patient is much more alert. Tolerating CPAP trials. Still has a pretty severe metabolic alkalosis. We will once again check mechanics and ABGs on CPAP trial. Try to get her extubated. Her potassium is a little older replacing that. We'll reduce Lasix. Continue with Diamox. Records from Dr. Bray's office showed that she has chronic obstructive lung disease and pulmonary hypertension. Also said to have congestive heart failure. They did not send any echocardiograms. Echo from here is pending. 04/02/2016 patient did CPAP's well yesterday. Respiratory rate was a little high initially. Still had problems with metabolic alkalosis. That has been mostly corrected now. Her chest x-ray shows some atelectasis in the left base. I will plan bronchoscopy this morning. Hopefully we can get her extubated later on this morning. Her echo has come back showing left ventricular hypertrophy with diastolic dysfunction but no significant pulmonary hypertension. Normal LV ejection fraction. Exam (Progress Note) - Constitutional Vitals: Period Temp Pulse Resp BP Sys/Richards Pulse Ox Last 24 Hr 97.4 F-99.4 F 64-100 8-367 83-163/67-95 97-100 Exam: She is sedated at present. Face is symmetrical. Vital signs are normal. Pulse is around 70 with frequent premature beats. Neck supple no bruits. Chest reveals only minimal rhonchi. She's not tight. Heart irregular without murmur. Abdomen soft nontender no masses. Bowel sounds present. Extremities no clubbing cyanosis. She has trace of edema. Results - Labs CBC & BMP: 04/01/16 05:09 04/02/16 04:18 Lab Results: I have reviewed the past 24 hour labs - Diagnostic Findings Procedure: Chest x-ray: image reviewed by me (atelectasis left lower lobe ET tube good position.) Assessment and Plan (1) Acute and chronic respiratory failure with hypercapnia Status: Acute Assessment and plan: With her marked hypercarbia and decreased level of consciousness, she clearly has acute respiratory failure. Her pH is alkalotic despite hypercarbia which would indicate chronic respiratory failure. Because of the respiratory failure is not clear. She is said to have never smoked. She does not appear to be having a severe asthma attack. She may have obesity hypoventilation syndrome or some form of central hypoventilation. We need to evaluate her brain. At this point I will give her Diamox to try to correct her electrolyte abnormalities. We will ventilate her until her mental status improves. We need further past history when available. 03/31/16 acute on chronic respiratory failure. The etiology of her chronic hypercapnia is not clear. Evaluating today for a central cause. She does have infiltrates on the films today. Appears to have a bilateral pneumonia. 04/01/16 she has diuresed vigorously. Bicarbonate level is down to 39, which is still somewhat elevated. Tolerating CPAP trials. We will see if we can get her extubated this morning. 04/02/2016 metabolic alkalosis has been mostly corrected. Probably can get her extubated today. Mechanics were good yesterday. Current Visit: Yes (2) Asthma Status: Acute Assessment and plan: Reportedly has history of asthma. She certainly does not sound tight. We'll treat for asthma exacerbation with steroids bronchodilators plus empiric antibiotics. Add Aminophyllin. 03/31/16 she's not tight. Continuing with above regimen. 04/01/16 again she is not tight minimal expiratory rhonchi. Continuing steroids and bronchodilators. 04/02/2016 no active bronchospasm. Current Visit: Yes (3) Congestive heart failure with cardiomyopathy Status: Acute Assessment and plan: Agree with diuresing her. Her BNP was somewhat elevated. Echocardiogram is pending. May need cardiology to see. She has an abnormal contour to her heart on the chest x-ray. 03/31/16 Await echo. It appears that she has left atrial enlargement on chest x- ray and EKG. We'll see what the echo shows. 04/01/16 echo is still pending. She has diuresed vigorously. 04/02/2016 echo showed left ventricular hypertrophy. Normal LV ejection fraction. Only mild pulmonary hypertension. Current Visit: Yes (4) Pneumonia of both lower lobes Status: Acute Assessment and plan: She does have basilar infiltrates bilaterally. This despite the fact that we have diuresed her. We'll start on appropriate antibiotics. 04/01/16 continuing with empiric antibiotics. Also diuresing. 04/02/2016 patient on empiric antibiotics. Chest x-ray is showing some atelectasis at the left base and I will plan bronchoscopy to clean out prior to weaning trial. Current Visit: Yes
--- NOTE | 2016-04-02 06:50 | Operative Note ---
Date of procedure: 04/02/16 (fiberoptic bronchoscopy with bronchial washings) Pre-op diagnosis: respiratory failure, atelectasis left lower lobe suspected mucous plugs Post-op diagnosis: same (retained secretions left lower lobe) Procedure: After an appropriate timeout to be sure we were dealing with Kathy Welsh, the ventilator was turned to 100% oxygen. The patient was already on fall infusion. Fiberoptic bronchoscope was introduced via the side arm of the endotracheal tube. The tip of the tube was noted to be 4 cm above the roman. Lower trachea looks clean. There were retained secretions in both mainstem bronchi going down to the segmental levels. There was some narrowing of the left lower lobe bronchus. I did not find any mucous plugs. Her were however increased secretions which were removed with saline irrigation. No endobronchial lesions were seen. The bronchoscope was removed. Patient remained in the ICU on the ventilator in stable condition. Anesthesia: conscious sedation Surgeon / Physician: Rigo Godfrey Estimated blood loss: none Specimens: other (bronchial washings for cultures) Condition: stable Disposition: ICU Results - Labs CBC & BMP: 04/01/16 05:09 04/02/16 04:18 Discharge Plan - Discharge Medications No Action amLODIPine [Norvasc] 10 mg PO DAILY Carvedilol [Coreg] 25 mg PO BID Montelukast Tab [Singulair Tab] 10 mg PO DAILY Azithromycin [Azithromycin Z Pack] 250 mg PO DAILY Lisinopril 40 mg PO BID predniSONE TAB [PredniSONE] 40 mg PO DAILY Furosemide Tab [Lasix Tab] 40 mg PO TID - Follow Up or Referral - Forms/Instructions
[2016-04-02] MEDS: PIPERACILLIN/TAZOBACTAM 3,375 MG in SODIUM CHLORIDE 0.9% 100 ML IV SCH ×3 (07:11→20:58)
--- NOTE | 2016-04-02 07:24 | XRay Report ---
XR chest 1V portable Indication: Shortness of breath, intubation Comparison: 01 April 2016 Findings: The heart and mediastinum are stable in size and configuration. The lines and tubes are unchanged in position. The pulmonary vascularity is normal in caliber. Hazy lower lung densities present similar to previous exam. No other lung infiltrates, effusions, pneumothorax or other abnormality is demonstrated. Impression: No significant change. PROCEDURE INTERPRETED AT [facility] DEPARTMENT OF RADIOLOGY Final Report Signed by: Dr. Sebastián Madrigal
[2016-04-02] MEDS: methylPREDNISolone SOD SUC 40 MG/1 ML VIAL IV SCH ×2 (08:25→19:28)
[2016-04-02 08:28] LABS: ABG Base Excess 4.9 MMOL/L (-2.5-2.5); ABG HCO3 28.7 MMOL/L (20-26); ABG Oxygen Saturation 94.4 % (95-100); ABG PCO2 54.7 MM HG (35-48); ABG PH 7.374 (7.35-7.45); ABG PO2 81.7 MM HG (80-95); ABG TCO2 27.5 MMOL/L (23-27)
[2016-04-02] MEDS: PANTOPRAZOLE 40 MG VIAL IV SCH (09:04)
[2016-04-02] MEDS: MONTELUKAST 10 MG TABLET PO SCH (09:04)
[2016-04-02] MEDS: POTASSIUM CHLORIDE 20 MEQ/15 ML UDCUP PO SCH (09:04)
[2016-04-02] MEDS: AZITHROMYCIN INJ 500 MG in SODIUM CHLORIDE 0.9% 250 ML IV SCH (09:06)
[2016-04-02 09:38] LABS: ABG Base Excess 4.3 MMOL/L (-2.5-2.5); ABG HCO3 28.2 MMOL/L (20-26); ABG Oxygen Saturation 93.4 % (95-100); ABG PCO2 64.1 MM HG (35-48); ABG PH 7.319 (7.35-7.45); ABG PO2 80.6 MM HG (80-95); ABG TCO2 28.8 MMOL/L (23-27)
--- NOTE | 2016-04-02 09:49 | Hospitalist Progress Note ---
Assessment and Plan (1) Metabolic alkalosis Status: Chronic Assessment and plan: High dose lasix use with normal renal and cardiac systolic performance Current Visit: Yes (2) Respiratory failure Status: Acute Assessment and plan: Alveolar hypoventilation due to metabolic derangement, unclear severity of underlying lung disease. Current Visit: Yes Hospitalist: Subjective Interval history: 60 yo female with home O2 use who was on high dose furosemide. Presented with severe respiratory acidosis requiring mechanical ventilation. With stabilization noted to have severe metabolic alkalosis (initial CO2 content of 50). Possible had secondary alveolar hypoventilation due to diuretic associated alkalosis. She has been successfully extubated this AM. She is awake and alert with AM CO2 content of 29. Exam - Constitutional Vitals: Period Temp Pulse Resp BP Sys/Richards Pulse Ox Last 24 Hr 97.4 F-99.4 F 64-100 8-367 83-160/67-99 95-100 General appearance: normal weight, no acute distress - Respiratory Respiratory exam: Present: clear to auscultation bilaterally. Absent: rales, rhonchi, wheezes - Cardiovascular Cardiovascular exam: Present: regular rate and rhythm - GI/Abdominal GI/Abdominal exam: Present: normal bowel sounds. Absent: tenderness - Extremities Exam Extremities exam: Absent: edema - Neurological Exam Neurological exam: Present: alert, oriented X3 Results - Labs CBC & BMP: 04/01/16 05:09 04/02/16 04:18 Labs: pH 7.46 pCO2 42 pO2 110 pO2/FiO2 314 - Diagnostic Findings Procedure: Chest x-ray: image reviewed by me (low lower lobe volume left greater than right)
[2016-04-02] MEDS: ENOXAPARIN 40 MG/0.4 ML SYRINGE SUBCUT SCH (11:54)
[2016-04-02] MEDS: AMINOPHYLLINE 1,000 MG in SODIUM CHLORIDE 0.9% 460 ML IV SCH (21:48)
[2016-04-03] MEDS: ALBUTEROL/IPRATROPIUM 3 ML NEB RESP TX SCH ×6 (03:21→23:40)
[2016-04-03 03:27] LABS: ABG PCO2 68.9 MM HG (35-48); ABG PH 7.285 (7.35-7.45); Allen Test Positive
[2016-04-03 03:28] LABS: ABG Base Excess 3.2 MMOL/L (-2.5-2.5); ABG Oxygen Saturation 90.7 % (95-100); ABG PO2 69.8 MM HG (80-95); ABG TCO2 34.1 MMOL/L (23-27)
[2016-04-03] MEDS: PIPERACILLIN/TAZOBACTAM 3,375 MG in SODIUM CHLORIDE 0.9% 100 ML IV SCH ×3 (04:58→22:07)
[2016-04-03 05:54] LABS: Calcium 9.2 MG/DL (8.5-10.1); Osmolality,Calculated 289.8 MOS/KG (273-304); Potassium 4.1 MMOL/L (3.5-5.1)
--- NOTE | 2016-04-03 06:21 | XRay Report ---
Exam: XR chest 1V portable Date: 04/03/2016 4:00 AM Indication: Post bronchoscopy Comparison: 04/02/2016 Technical: AP portable Findings: Endotracheal tube and nasogastric tube have been removed. Oxygen tubing superimposes the chest. Cardiomegaly is present. Patchy alveolar infiltrate present in the right perihilar region and right base with tiny low findings effusions bilaterally. Extracardiac leads are present. No pneumothorax. Impression: 1. Cardiomegaly 2. Removal of endotracheal tube and nasogastric tube 3. Persistent patchy alveolar density in tiny bilateral effusions PROCEDURE INTERPRETED AT [facility] DEPARTMENT OF RADIOLOGY Final Report Signed by: Dr. Bruno Aldana
--- NOTE | 2016-04-03 06:28 | Pulmonology Progress Note ---
Pulmonary - PN: Subj Interval history: This 60-year-old black female came in with decreased level of consciousness and required mechanical ventilation. She had severe hypercarbia. She reportedly has a history of asthma but does not have COPD. She's only mildly obese. She could have obesity hypoventilation syndrome. She has an abnormal cardiac shadow and evidence of left atrial enlargement on EKG. We need echocardiogram. We need neurology to see. Not clear why she would have chronic hypoventilation. She has seen Dr. Bray in the past and we need records from his clinic for previous evaluations. At the present time she is on the ventilator. ABGs acceptable although she has a marked metabolic alkalosis. Trying to correct that. We'll hold sedation and start weaning her today. I'm going to change her from propofol to Precedex. 04/01/2016 patient is much more alert. Tolerating CPAP trials. Still has a pretty severe metabolic alkalosis. We will once again check mechanics and ABGs on CPAP trial. Try to get her extubated. Her potassium is a little older replacing that. We'll reduce Lasix. Continue with Diamox. Records from Dr. Bray's office showed that she has chronic obstructive lung disease and pulmonary hypertension. Also said to have congestive heart failure. They did not send any echocardiograms. Echo from here is pending. 04/02/2016 patient did CPAP's well yesterday. Respiratory rate was a little high initially. Still had problems with metabolic alkalosis. That has been mostly corrected now. Her chest x-ray shows some atelectasis in the left base. I will plan bronchoscopy this morning. Hopefully we can get her extubated later on this morning. Her echo has come back showing left ventricular hypertrophy with diastolic dysfunction but no significant pulmonary hypertension. Normal LV ejection fraction. 04/03/2016 patient was extubated. She still has an elevated PCO2 of about 69. 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 She previously used CPAP for obstructive sleep apnea but she quit using it because she said she felt bothered her. We will get a sleep lab to look at her and see if she needs further testing there. She has a mild respiratory acidosis still. She should be able to move to the floor today. Changing to oral theophylline. Exam (Progress Note) - Constitutional Vitals: Period Temp Pulse Resp BP Sys/Richards Pulse Ox Last 24 Hr 98.4 F-98.8 F 65-98 9-30 123-165/60-99 83-100 Exam: She is alert at present. Seems oriented, answering questions. Face is symmetrical. Vital signs are normal. Pulse is around 70 with frequent premature beats. Neck supple no bruits. Chest sounds clear. She's not tight. Heart irregular without murmur. Abdomen soft nontender no masses. Bowel sounds present. Extremities no clubbing cyanosis. She has trace of edema. Results - Labs CBC & BMP: 04/01/16 05:09 04/03/16 04:55 Lab Results: I have reviewed the past 24 hour labs Assessment and Plan (1) Acute and chronic respiratory failure with hypercapnia Status: Acute Assessment and plan: With her marked hypercarbia and decreased level of consciousness, she clearly has acute respiratory failure. Her pH is alkalotic despite hypercarbia which would indicate chronic respiratory failure. Because of the respiratory failure is not clear. She is said to have never smoked. She does not appear to be having a severe asthma attack. She may have obesity hypoventilation syndrome or some form of central hypoventilation. We need to evaluate her brain. At this point I will give her Diamox to try to correct her electrolyte abnormalities. We will ventilate her until her mental status improves. We need further past history when available. 03/31/16 acute on chronic respiratory failure. The etiology of her chronic hypercapnia is not clear. Evaluating today for a central cause. She does have infiltrates on the films today. Appears to have a bilateral pneumonia. 04/01/16 she has diuresed vigorously. Bicarbonate level is down to 39, which is still somewhat elevated. Tolerating CPAP trials. We will see if we can get her extubated this morning. 04/02/2016 metabolic alkalosis has been mostly corrected. Probably can get her extubated today. Mechanics were good yesterday. 04/03/2016 patient has done well postextubation. She has chronic hypercarbia. May have an element of obesity hypoventilation syndrome. Will get sleep doctor to see. Current Visit: Yes (2) Asthma Status: Acute Assessment and plan: Reportedly has history of asthma. She certainly does not sound tight. We'll treat for asthma exacerbation with steroids bronchodilators plus empiric antibiotics. Add Aminophyllin. 03/31/16 she's not tight. Continuing with above regimen. 04/01/16 again she is not tight minimal expiratory rhonchi. Continuing steroids and bronchodilators. 04/02/2016 no active bronchospasm. 04/03/2016 no active bronchospasm. Continuing with steroids and bronchodilators. Continue with Singulair. Current Visit: Yes (3) Congestive heart failure with cardiomyopathy Status: Acute Assessment and plan: Agree with diuresing her. Her BNP was somewhat elevated. Echocardiogram is pending. May need cardiology to see. She has an abnormal contour to her heart on the chest x-ray. 03/31/16 Await echo. It appears that she has left atrial enlargement on chest x- ray and EKG. We'll see what the echo shows. 04/01/16 echo is still pending. She has diuresed vigorously. 04/02/2016 echo showed left ventricular hypertrophy. Normal LV ejection fraction. Only mild pulmonary hypertension. 04/03/2016 no signs of heart failure now. Current Visit: Yes (4) Pneumonia of both lower lobes Status: Acute Assessment and plan: She does have basilar infiltrates bilaterally. This despite the fact that we have diuresed her. We'll start on appropriate antibiotics. 04/01/16 continuing with empiric antibiotics. Also diuresing. 04/02/2016 patient on empiric antibiotics. Chest x-ray is showing some atelectasis at the left base and I will plan bronchoscopy to clean out prior to weaning trial. 04/03/2016 continuing with antibiotics. Current Visit: Yes
[2016-04-03] MEDS: PANTOPRAZOLE 40 MG VIAL IV SCH (10:09)
[2016-04-03] MEDS: MONTELUKAST 10 MG TABLET PO SCH (10:10)
[2016-04-03] MEDS: methylPREDNISolone SOD SUC 40 MG/1 ML VIAL IV SCH ×2 (10:10→20:22)
[2016-04-03] MEDS: THEOPHYLLINE ER (24 HR) 300 MG CAPSULE PO SCH (10:10)
[2016-04-03] MEDS: AZITHROMYCIN INJ 500 MG in SODIUM CHLORIDE 0.9% 250 ML IV SCH (10:11)
--- NOTE | 2016-04-03 10:38 | Hospitalist Progress Note ---
Assessment and Plan (1) Metabolic alkalosis Status: Chronic Assessment and plan: High dose lasix use with normal renal and cardiac systolic performance Current Visit: Yes (2) Respiratory failure Status: Acute Assessment and plan: Alveolar hypoventilation due to metabolic derangement, appears has chronic lung disease with CO2 retention. Current Visit: Yes Hospitalist: Subjective Interval history: 60 yo female with chronic home O2 use maintained on high dose furosemide with normal echocardiographic LV systolic performance who presented with severe hypercapnea with CO2 content of 50 requiring a course of mechanical ventilation. Alkalosis was addressed and extubated 04/02. She demonstrates a respiratory acidosis and CO2 content is being allowed to rise (lasix has been discontinued). Appears that she has chronic pCO2 retention exacerbated by diuretic induced metabolic acidosis with respiratory arrest. Awake and alert this morning-pH on ABG 7.28. Exam - Constitutional Vitals: Period Temp Pulse Resp BP Sys/Richards Pulse Ox Last 24 Hr 98.4 F-98.7 F 65-97 18-30 123-148/60-98 83-100 General appearance: normal weight - Respiratory Respiratory exam: Present: clear to auscultation bilaterally. Absent: rales, rhonchi, wheezes - Cardiovascular Cardiovascular exam: Present: regular rate and rhythm - GI/Abdominal GI/Abdominal exam: Present: normal bowel sounds. Absent: tenderness - Extremities Exam Extremities exam: Absent: edema - Neurological Exam Neurological exam: Present: alert, oriented X3 - Psychiatric Psychiatric exam: Present: normal affect, normal mood Results - Labs CBC & BMP: 04/01/16 05:09 04/03/16 04:55 Labs: pH 7.28 pCO2 69 pO2 70 - Diagnostic Findings Procedure: Chest x-ray: image reviewed by me (haziness, low volume right lower lobe)
[2016-04-03] MEDS: ENOXAPARIN 40 MG/0.4 ML SYRINGE SUBCUT SCH (12:00)
--- NOTE | 2016-04-03 16:01 | Sleep Medicine Consult ---
Assessment and Plan (1) Unspecified sleep apnea Status: Acute Assessment and plan: With her history of acute and chronic respiratory failure, snoring, abnormal breathing during sleep, and daytime sleepiness, sleep evaluation is recommended. We will start with a chest evaluation and follow-up on those results. Thank you for this consult and the opportunity to participate in her care. Current Visit: Yes (2) Hypertension Status: Acute Assessment and plan: The prevalence rate for obstructive sleep apnea patients with hypertension is 35 %. That rate can be as high as 80% in patients who require 4 or more medications for blood pressure control. Current Visit: Yes (3) Congestive heart failure with cardiomyopathy Status: Acute Assessment and plan: Untreated sleep apnea can be an exacerbating factor to congestive heart failure , whether systolic or diastolic in nature. Treating sleep apnea in patients with CHF can help improve clinical management in these patients and even potentially reduce readmission rate to the hospital. This could even include improved ejection fraction in patients with systolic dysfunction and obstructive sleep apnea. Current Visit: Yes History of Present Illness Chief complaint: Sleep apnea History of present illness: Ms. Welsh is a 60 year old female admitted with acute and chronic respiratory failure. She required intubation and mechanical ventilation. She has been extubated and doing better. She reportedly had a history of sleep apnea but cannot recall where a sleep study was done. She is on chronic home O2 therapy and may have confused being on a "breathing machine" with nocturnal oxygen. She does have a history of snoring and awakening from sleep short of breath but has not been told that she stops breathing during her sleep. She does have problems with daytime fatigue and sleepiness. Home Medications Medication Instructions Recorded Confirmed Type Azithromycin [Azithromycin Z Pack] 250 mg PO DAILY 03/30/16 03/30/16 History Carvedilol [Coreg] 25 mg PO BID 03/30/16 03/30/16 History Furosemide Tab [Lasix Tab] 40 mg PO TID 03/30/16 03/30/16 History Lisinopril 40 mg PO BID 03/30/16 03/30/16 History Montelukast Tab [Singulair Tab] 10 mg PO DAILY 03/30/16 03/30/16 History amLODIPine [Norvasc] 10 mg PO DAILY 03/30/16 03/30/16 History predniSONE TAB [PredniSONE] 40 mg PO DAILY 03/30/16 03/30/16 History Allergies Allergy/AdvReac Type Severity Reaction Status Date / Time No Known Allergies Allergy Unverified 03/30/16 09:17 Review of systems: Review of systems otherwise unremarkable other than as stated in HPI from a sleep standpoint. Exam (Pulmonay) H&P - Constitutional Vitals: Period Temp Pulse Resp BP Sys/Richards Pulse Ox Last 24 Hr 98.4 F-98.6 F 65-99 15-30 114-148/60-98 83-100 Exam: She is alert and responsive in no acute distress. Pupils equal round reactive to light and accommodation. Extraocular movements intact. Oropharynx with a class III Mallampati exam. Neck is supple without adenopathy or thyromegaly. No supraclavicular adenopathy is noted. Chest with symmetrical breath sounds without focal wheezes or rhonchi. Cardiac exam reveals a regular rhythm without murmur or gallop. Abdomen soft nontender without palpable hepatosplenomegaly or mass. Extremities without clubbing, cyanosis, or edema. Neurologically, she is grossly intact. She moves all extremities with good strength. Medical,Surgical,& Family Hx - Medical History Cardio: History of: Cerebrovascular Disease, CHF, Hypertension Neurology: History of: Cerebrovascular Accident (2007) Respiratory: History of: Asthma, Respiratory Problems ("lung disease") - Surgical History Reproductive Surgeries: Surgical HX of;: Hysterectomy - Family History Family History: Reports;: Family Diabetes, Family Heart Disease, Family Hypertension, Additional Family History (DEMENTIA, COPD) - Social History Smoking Status: Never smoker Frequency of Alcohol Use: None Type of Drug Use: None Results - Labs CBC & BMP: 04/01/16 05:09 04/03/16 04:55 Lab Results: I have reviewed the past 24 hour labs Labs: TSH has not been done and would be recommended.
[2016-04-03] MEDS ORDERED: CARVEDILOL 25 MG TABLET PO SCH ×2 (23:00→23:02)
[2016-04-04] MEDS ORDERED: CARVEDILOL 12.5 MG TABLET PO ONE (00:30)
[2016-04-04 03:50] LABS: Calcium 8.7 MG/DL (8.5-10.1); Osmolality,Calculated 291.8 MOS/KG (273-304); Potassium 4.4 MMOL/L (3.5-5.1)
[2016-04-04] MEDS: ALBUTEROL/IPRATROPIUM 3 ML NEB RESP TX SCH ×6 (04:50→23:44)
[2016-04-04 05:03] LABS: ABG Base Excess 1.5 MMOL/L (-2.5-2.5); ABG HCO3 25.6 MMOL/L (20-26); ABG Oxygen Saturation 92.5 % (95-100); ABG PH 7.216 (7.35-7.45); ABG PO2 74.4 MM HG (80-95); ABG TCO2 29.4 MMOL/L (23-27); Allen Test Positive
[2016-04-04] MEDS: PIPERACILLIN/TAZOBACTAM 3,375 MG in SODIUM CHLORIDE 0.9% 100 ML IV SCH ×3 (05:13→20:31)
[2016-04-04 06:02] LABS: ABG PCO2 81.5 MM HG (35-48)
--- NOTE | 2016-04-04 06:54 | Pulmonology Progress Note ---
Pulmonary - PN: Subj Interval history: This 60-year-old black female came in with decreased level of consciousness and required mechanical ventilation. She had severe hypercarbia. She reportedly has a history of asthma but does not have COPD. She's only mildly obese. She could have obesity hypoventilation syndrome. She has an abnormal cardiac shadow and evidence of left atrial enlargement on EKG. We need echocardiogram. We need neurology to see. Not clear why she would have chronic hypoventilation. She has seen Dr. Bray in the past and we need records from his clinic for previous evaluations. At the present time she is on the ventilator. ABGs acceptable although she has a marked metabolic alkalosis. Trying to correct that. We'll hold sedation and start weaning her today. I'm going to change her from propofol to Precedex. 04/01/2016 patient is much more alert. Tolerating CPAP trials. Still has a pretty severe metabolic alkalosis. We will once again check mechanics and ABGs on CPAP trial. Try to get her extubated. Her potassium is a little older replacing that. We'll reduce Lasix. Continue with Diamox. Records from Dr. Bray's office showed that she has chronic obstructive lung disease and pulmonary hypertension. Also said to have congestive heart failure. They did not send any echocardiograms. Echo from here is pending. 04/02/2016 patient did CPAP's well yesterday. Respiratory rate was a little high initially. Still had problems with metabolic alkalosis. That has been mostly corrected now. Her chest x-ray shows some atelectasis in the left base. I will plan bronchoscopy this morning. Hopefully we can get her extubated later on this morning. Her echo has come back showing left ventricular hypertrophy with diastolic dysfunction but no significant pulmonary hypertension. Normal LV ejection fraction. 04/03/2016 patient was extubated. She still has an elevated PCO2 of about 69. 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 She previously used CPAP for obstructive sleep apnea but she quit using it because she said she felt bothered her. We will get a sleep lab to look at her and see if she needs further testing there. She has a mild respiratory acidosis still. She should be able to move to the floor today. Changing to oral theophylline. 04/04/2016 patient has been alert and unable to eat since being extubated. However she has an elevated PCO2 of 81. She had a sleep study last night while on 1 L of oxygen. Results are pending. I have tentatively ordered BiPAP for tonight plus as needed. Dr. Keith will review the results and adjust as indicated. She has a history of COPD but has never been a smoker. This is primarily asthma with remodeling changes. 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 Her elevated PCO2 is still out of the range I would expect with this. Exam (Progress Note) - Constitutional Vitals: Period Temp Pulse Resp BP Sys/Richards Pulse Ox Last 24 Hr 97.5 F-98.6 F 68-140 15-26 100-145/58-88 82-100 Exam: She remains alert. Seems oriented, answering questions. Face is symmetrical. Vital signs are normal. Pulse is around 70 with frequent premature beats. Neck supple no bruits. Chest sounds clear. She's not tight. Heart irregular without murmur. Abdomen soft nontender no masses. Bowel sounds present. Extremities no clubbing cyanosis. She has trace of edema. Results - Labs CBC & BMP: 04/01/16 05:09 04/04/16 02:30 Lab Results: I have reviewed the past 24 hour labs - Diagnostic Findings Procedure: Chest x-ray: image reviewed by me (Yesterday's chest x-ray shows plump pulmonary arteries, enlarged cardiac shadow, minimal bibasilar infiltrates.) Assessment and Plan (1) Acute and chronic respiratory failure with hypercapnia Status: Acute Assessment and plan: With her marked hypercarbia and decreased level of consciousness, she clearly has acute respiratory failure. Her pH is alkalotic despite hypercarbia which would indicate chronic respiratory failure. Because of the respiratory failure is not clear. She is said to have never smoked. She does not appear to be having a severe asthma attack. She may have obesity hypoventilation syndrome or some form of central hypoventilation. We need to evaluate her brain. At this point I will give her Diamox to try to correct her electrolyte abnormalities. We will ventilate her until her mental status improves. We need further past history when available. 03/31/16 acute on chronic respiratory failure. The etiology of her chronic hypercapnia is not clear. Evaluating today for a central cause. She does have infiltrates on the films today. Appears to have a bilateral pneumonia. 04/01/16 she has diuresed vigorously. Bicarbonate level is down to 39, which is still somewhat elevated. Tolerating CPAP trials. We will see if we can get her extubated this morning. 04/02/2016 metabolic alkalosis has been mostly corrected. Probably can get her extubated today. Mechanics were good yesterday. 04/03/2016 patient has done well postextubation. She has chronic hypercarbia. May have an element of obesity hypoventilation syndrome. Will get sleep doctor to see. 04/04/2016 patient remains alert despite having a PCO2 of 81 and pH is 7.21. We will try treating her with BiPAP at night plus as needed during the daytime. She had a type of sleep study last night. Await Dr. Keith's input. Current Visit: Yes (2) Asthma Status: Acute Assessment and plan: Reportedly has history of asthma. She certainly does not sound tight. We'll treat for asthma exacerbation with steroids bronchodilators plus empiric antibiotics. Add Aminophyllin. 03/31/16 she's not tight. Continuing with above regimen. 04/01/16 again she is not tight minimal expiratory rhonchi. Continuing steroids and bronchodilators. 04/02/2016 no active bronchospasm. 04/03/2016 no active bronchospasm. Continuing with steroids and bronchodilators. Continue with Singulair. 04/04/2016 she is not having any active bronchospasm. Continue current treatment. Current Visit: Yes (3) Congestive heart failure with cardiomyopathy Status: Acute Assessment and plan: Agree with diuresing her. Her BNP was somewhat elevated. Echocardiogram is pending. May need cardiology to see. She has an abnormal contour to her heart on the chest x-ray. 03/31/16 Await echo. It appears that she has left atrial enlargement on chest x- ray and EKG. We'll see what the echo shows. 04/01/16 echo is still pending. She has diuresed vigorously. 04/02/2016 echo showed left ventricular hypertrophy. Normal LV ejection fraction. Only mild pulmonary hypertension. 04/03/2016 no signs of heart failure now. 04/04/2016 apparently had diastolic dysfunction as a cause of her acute congestive heart failure and this has improved. Current Visit: Yes (4) Pneumonia of both lower lobes Status: Acute Assessment and plan: She does have basilar infiltrates bilaterally. This despite the fact that we have diuresed her. We'll start on appropriate antibiotics. 04/01/16 continuing with empiric antibiotics. Also diuresing. 04/02/2016 patient on empiric antibiotics. Chest x-ray is showing some atelectasis at the left base and I will plan bronchoscopy to clean out prior to weaning trial. 04/03/2016 continuing with antibiotics. 04/04/16 bronchopneumonia is improved as well. Current Visit: Yes
[2016-04-04 07:24] LABS: Free T4 (Free Thyroxine) 1.37 NG/DL (0.76-1.46); Thyroid Stimulating Hormone 0.183 uIU/ml (0.358-3.74)
[2016-04-04] MEDS: methylPREDNISolone SOD SUC 40 MG/1 ML VIAL IV SCH ×2 (07:28→20:31)
--- NOTE | 2016-04-04 08:53 | Hospitalist Progress Note ---
Assessment and Plan - Time spent with patient Time spent with patient: Greater than 30 minutes (1) Respiratory failure Status: Acute Current Visit: Yes (2) Hypercarbia Status: Acute Current Visit: Yes (3) Asthma Status: Acute Current Visit: Yes (4) Metabolic alkalosis Status: Chronic Current Visit: Yes (5) Unspecified sleep apnea Status: Acute Current Visit: Yes (6) Diastolic CHF Status: Acute Assessment and plan: We will continue to monitor in the ICU because of fear of possible resp failure based on her elevated PCO2 on ABG Agree with night time CPAP Ramesh is currently on hold and being monitored Continue Steroid therapy and taper Monitor Urine out put Keep abx until we have report of sputum cultures Continue her CHF meds If she does well tonight, possible transfer to the floor in a.m DVT ppx Current Visit: Yes Hospitalist: Subjective Interval history: Admitted for respiratory failure requiring intubation, she was extubated 2 days ago and has been stable post extubation Had sleep study yesterday and shows sleep apnea and CPAP recommended HS and PRN Her ABG this a.m is showing severe CO2 retention even though she is saturating at 92% on 2L of oxygen She how ever has no complains No fever Exam - Constitutional Vitals: Period Temp Pulse Resp BP Sys/Richards Pulse Ox Last 24 Hr 97.5 F-98.6 F 68-140 18-26 100-145/58-88 82-100 Exam: General appearance: normal weight - Respiratory Respiratory exam: Present: clear to auscultation bilaterally. Absent: rales, rhonchi, wheezes - Cardiovascular Cardiovascular exam: Present: regular rate and rhythm - GI/Abdominal GI/Abdominal exam: Present: normal bowel sounds. Absent: tenderness - Extremities Exam Extremities exam: Absent: edema - Neurological Exam Neurological exam: Present: alert, oriented X3 - Psychiatric Psychiatric exam: Present: normal affect, normal mood Results - Labs CBC & BMP: 04/01/16 05:09 04/04/16 02:30 Lab Results: I have reviewed the past 24 hour labs - Diagnostic Findings Procedure: Chest x-ray: image reviewed by me, report reviewed by me
[2016-04-04] MEDS ORDERED: PNEUMOCOCCAL VACCINE (23 VALENT) 0.5 ML VIAL IM ONE (09:00)
[2016-04-04] MEDS: CARVEDILOL 25 MG TABLET PO SCH ×2 (09:36→20:30)
[2016-04-04] MEDS: THEOPHYLLINE ER (24 HR) 300 MG CAPSULE PO SCH (09:36)
[2016-04-04] MEDS: PANTOPRAZOLE 40 MG TABLET PO SCH (09:36)
[2016-04-04] MEDS: MONTELUKAST 10 MG TABLET PO SCH (09:37)
[2016-04-04] MEDS: ENOXAPARIN 40 MG/0.4 ML SYRINGE SUBCUT SCH (11:52)
--- NOTE | 2016-04-04 12:17 | Sleep Medicine Progress Note ---
Assessment and Plan (1) Unspecified sleep apnea Status: Acute Assessment and plan: Await results from HST as noted above in present illness. Current Visit: Yes (2) Hypertension Status: Acute Current Visit: Yes (3) Congestive heart failure with cardiomyopathy Status: Acute Current Visit: Yes Sleep Medicine Subjective Interval history: HST was done last night but results will not be available til Thursday. Sleep staff is out of town today for [place] [employer] meeting in [place]. Would just continue as you plan with BiPAP nightly and will follow up on results as soon as I have them. Exam (Progress Note) - Constitutional Vitals: Period Temp Pulse Resp BP Sys/Richards Pulse Ox Last 24 Hr 97.5 F-98.6 F 64-140 13-26 100-146/58-89 82-100 Results - Labs CBC & BMP: 04/01/16 05:09 04/04/16 02:30
[2016-04-05] MEDS: ALBUTEROL/IPRATROPIUM 3 ML NEB RESP TX SCH ×6 (02:23→23:56)
[2016-04-05 03:34] LABS: Allen Test Positive; Pt O2 Delivery Device BIPAP
[2016-04-05 03:35] LABS: ABG Base Excess 4.7 MMOL/L (-2.5-2.5); ABG HCO3 33.2 MMOL/L (20-26); ABG Oxygen Saturation 88.4 % (95-100); ABG PCO2 67.8 MM HG (35-48); ABG PH 7.308 (7.35-7.45); ABG PO2 58.9 MM HG (80-95); ABG TCO2 35.3 MMOL/L (23-27)
[2016-04-05 04:07] LABS: Calcium 8.4 MG/DL (8.5-10.1); Potassium 4.6 MMOL/L (3.5-5.1)
[2016-04-05] MEDS: PIPERACILLIN/TAZOBACTAM 3,375 MG in SODIUM CHLORIDE 0.9% 100 ML IV SCH ×3 (05:51→21:07)
[2016-04-05] MEDS: methylPREDNISolone SOD SUC 40 MG/1 ML VIAL IV SCH ×2 (07:38→21:07)
--- NOTE | 2016-04-05 08:03 | Pulmonology Progress Note ---
Pulmonary - PN: Subj Interval history: Is a 60-year-old female whom I am seeing for . This patient has asthma she has had respiratory failure for oxygen and carbon dioxide. She is thought to have had COPD. She has never been a smoker. There is a history of chronic respiratory failure and a history of pulmonary hypertension. She has been on the ventilator but was extubated [address] Rama Keith has seen her concerning her obstructive airways disease and she has been has been put on BiPAP. Previously her PCO2's have been as high as some 81.5. ABGs. FiO2 24%. PH 7.308. PCO2 67.8. PO2 58.9. Bicarb 33.2 Lab. Electrolytes are normal. Creatinine is 0.7. BUN is 23. Theophylline level done 04/03/2016 was 7.6. No chest x-ray was done today Microbiology. Bronchial washings showed no organisms. There are a few white blood cells. Labs been reviewed. Medicines been reviewed. Physical exam. Vital signs. See below General. No distress. Psychiatric. Little bit hard to wake up with alert and oriented Neurological. Cranial nerves are intact with some decreased hearing acuity. Patient moves all 4 extremities. Neck. Symmetrical no meningismus Lymphatics. No submandibular cervical or supraclavicular adenopathy. Chest. Kyphotic. No chest wall tenderness. Moves air well. Heart. No gallop Abdomen. Nontender. Rare bowel sounds Lower extremities. Nothing to suggest deep venous thrombophlebitis The remainder the physical exam is noncontributory. Plan. 1. Continue present regimen. 2. Keep the patient's FiO2 is 24%. Exam (Progress Note) - Constitutional Vitals: Period Temp Pulse Resp BP Sys/Richards Pulse Ox Last 24 Hr 98.0 F-98.9 F 55-106 13-33 101-152/51-98 81-100 Results - Labs CBC & BMP: 04/01/16 05:09 04/05/16 03:29
--- NOTE | 2016-04-05 08:56 | Hospitalist Progress Note ---
Assessment and Plan - Time spent with patient Time spent with patient: Greater than 30 minutes (1) Respiratory failure Status: Acute Current Visit: Yes (2) Hypercarbia Status: Acute Current Visit: Yes (3) Asthma Status: Acute Current Visit: Yes (4) Metabolic alkalosis Status: Chronic Current Visit: Yes (5) Unspecified sleep apnea Status: Acute Current Visit: Yes (6) Diastolic CHF Status: Acute Assessment and plan: We will continue to monitor in the ICU because of fear of possible deterioration if transferred to the floor Continue with night time CPAP per pulm Off Lasix and being monitored Continue Steroid therapy and taper DC abx since sputum cultures are negative and monitor Continue her other CHF meds DVT ppx Current Visit: Yes Hospitalist: Subjective Interval history: Clinically continues to improve, sitting up in chair during my rounds. Saturating well on 2Ll of oxygen No fever CO2 on ABG looks slightly better this a.m Did well on CPAP last night Pulmonology is is abit concerned about deteriorating if transferred to the floor too early, we will hold off until she is more stable Exam - Constitutional Vitals: Period Temp Pulse Resp BP Sys/Richards Pulse Ox Last 24 Hr 98.0 F-98.9 F 55-106 13-33 101-152/51-98 81-100 Exam: General appearance: in no obvious distress, up in chair - Respiratory Respiratory exam: Present: clear to auscultation bilaterally. Absent: rales, rhonchi, wheezes - Cardiovascular Cardiovascular exam: Present: regular rate and rhythm - GI/Abdominal GI/Abdominal exam: Present: normal bowel sounds. Absent: tenderness - Extremities Exam Extremities exam: Absent: edema - Neurological Exam Neurological exam: Present: alert, oriented X3 - Psychiatric Psychiatric exam: Present: normal affect, normal mood Results - Labs CBC & BMP: 04/01/16 05:09 04/05/16 03:29 Lab Results: I have reviewed the past 24 hour labs
[2016-04-05] MEDS: CARVEDILOL 25 MG TABLET PO SCH ×2 (09:27→21:06)
[2016-04-05] MEDS: THEOPHYLLINE ER (24 HR) 300 MG CAPSULE PO SCH (09:28)
[2016-04-05] MEDS: MONTELUKAST 10 MG TABLET PO SCH (09:28)
[2016-04-05] MEDS: PANTOPRAZOLE 40 MG TABLET PO SCH (09:28)
--- NOTE | 2016-04-05 10:24 | XRay Report ---
Referring Physician: Bruno Bennett Exam: XR chest 1V portable Date: April 05, 2016 at 9:13 AM Reason: Shortness of breath Comparison: Chest one view portable April 03, 2016 Findings: The cardiac suite is again enlarged. Mild bibasilar opacities are present and are most consistent with atelectasis. There could also be venous congestion, and minimal bilateral pleural effusions are suspected. No pneumothorax is identified. The osseous structures appear stable. Impression: 1. Cardiomegaly. 2. Minimal bibasilar atelectasis and possible venous congestion. 3. Probable minimal bilateral pleural effusions. PROCEDURE INTERPRETED AT [facility] DEPARTMENT OF RADIOLOGY Final Report Signed by: Dr. Lor Avila
[2016-04-05] MEDS: ENOXAPARIN 40 MG/0.4 ML SYRINGE SUBCUT SCH (12:19)
[2016-04-06] MEDS: ALBUTEROL/IPRATROPIUM 3 ML NEB RESP TX SCH ×5 (03:23→23:31)
[2016-04-06] MEDS: PIPERACILLIN/TAZOBACTAM 3,375 MG in SODIUM CHLORIDE 0.9% 100 ML IV SCH ×2 (04:16→22:22)
[2016-04-06 04:53] LABS: Basophils % 0.1 % (0.0-0.8); Eosinophils % 0.1 % (0.00-10.9); Hematocrit 40.9 VOL% (35.7-47.0); Hemoglobin 12.4 GM/DL (12.0-16.0); Immature Granulocytes % 0.3 %; Immature Granulocytes Absolute 0.04 #; Lymphocytes # 0.9 10*3/uL (1.4-4.0); Mean Corpuscular HGB Conc 30.3 GM/DL (32-36); Mean Corpuscular Hemoglobin 28 PG (27-34); Mean Corpuscular Volume 91.5 FL (87-102); Mean Platelet Volume 11.2 FL (9.6-12.0); Monocytes # 0.4 10*3/uL (0.11-0.8); Monocytes % 2.8 % (1.7-12.7); Neutrophils # 11.2 10*3/uL (1.4-7.4); Neutrophils % 89.7 % (38.7-73.9); Platelet Count 163 T/CUMM (130-400); Red Blood Count 4.47 MC/CUMM (3.8-5.5); Red Cell Distribution Width 15.1 % (9.3-17.3); White Blood Count 12.5 T/CUMM (4-12)
[2016-04-06 05:24] LABS: Albumin 2.6 G/DL (3.4-5.0); Bilirubin,Total 0.9 MG/DL (0.2-1.0); Calcium 8.6 MG/DL (8.5-10.1); Osmolality,Calculated 292.8 MOS/KG (273-304); Potassium 4.2 MMOL/L (3.5-5.1); Total Protein 5.8 G/DL (6.4-8.3)
[2016-04-06] MEDS: THEOPHYLLINE ER (24 HR) 300 MG CAPSULE PO SCH (08:45)
[2016-04-06] MEDS: PANTOPRAZOLE 40 MG TABLET PO SCH (08:45)
[2016-04-06] MEDS: MONTELUKAST 10 MG TABLET PO SCH (08:45)
[2016-04-06] MEDS: methylPREDNISolone SOD SUC 40 MG/1 ML VIAL IV SCH (08:45)
[2016-04-06] MEDS: CARVEDILOL 25 MG TABLET PO SCH (08:46)
--- NOTE | 2016-04-06 09:05 | Hospitalist Progress Note ---
Assessment and Plan - Time spent with patient Time spent with patient: Greater than 30 minutes (1) Respiratory failure Status: Acute Current Visit: Yes (2) Hypercarbia Status: Acute Current Visit: Yes (3) Asthma Status: Acute Current Visit: Yes (4) Metabolic alkalosis Status: Chronic Current Visit: Yes (5) Unspecified sleep apnea Status: Acute Current Visit: Yes (6) Diastolic CHF Status: Acute Assessment and plan: OK by me for transfer out of the unit, but We will continue to monitor in the ICU for now and transfer to the floor when pulmonology clears her Continue with night time CPAP per pulm Continue to hold off Lasix and monitor Continue Steroid therapy and taper DC abx since sputum cultures are negative and monitor Continue her other CHF meds DVT ppx Current Visit: Yes Hospitalist: Subjective Interval history: 60-year-old lady with history of Asthma, CHF who was admitted for hypercapnic respiratory failure requiring intubation. She was successfully extubated and has been on supplemental NC oxygen and nighttime CPAP after sleep medicine evaluation. She has remained hemodynamically stable, was being kept back in the ICU because of her persisting marked CO2 retention. Her ABg is now better. She has no complains this morning, sitting up in chair Remains afebrile and cultures have been negative. Her leucocytosis is because of steroids Medically OK for floor transfer when pulmonology clears her Exam - Constitutional Vitals: Period Temp Pulse Resp BP Sys/Richards Pulse Ox Last 24 Hr 97.5 F-98.7 F 53-98 12-34 127-168/62-96 85-100 Exam: General appearance: in no obvious distress, up in chair - Respiratory Respiratory exam: Present: clear to auscultation bilaterally. Absent: rales, rhonchi, wheezes - Cardiovascular Cardiovascular exam: Present: regular rate and rhythm - GI/Abdominal GI/Abdominal exam: Present: normal bowel sounds. Absent: tenderness - Extremities Exam Extremities exam: Absent: edema - Neurological Exam Neurological exam: Present: alert, oriented X3 - Psychiatric Psychiatric exam: Present: normal affect, normal mood Results - Labs CBC & BMP: 04/06/16 04:03 04/06/16 04:03 Lab Results: I have reviewed the past 24 hour labs
--- NOTE | 2016-04-06 12:32 | Pulmonology Progress Note ---
Pulmonary - PN: Subj Interval history: Is a 60-year-old female whom I am seeing for . This patient has asthma she has had respiratory failure for oxygen and carbon dioxide. She is thought to have had COPD. She has never been a smoker. There is a history of chronic respiratory failure and a history of pulmonary hypertension. She has been on the ventilator but was extubated [address] Rama Keith has seen her concerning her obstructive airways disease and she has been has been put on BiPAP. Previously her PCO2's have been as high as some 81.5. ABGs. 04/05/2069 FiO2 24%. PH 7.308. PCO2 67.8. PO2 58.9. Bicarb 33.2 Lab. 04/05/2016. Electrolytes are normal. Creatinine is 0.7. BUN is 23. Theophylline level done 04/03/2016 was 7.6. Lab. 04/06/2016. Electrolytes normal. Creatinine is 0.6. White count is 12, 500. H&H 12.4 40.9. No chest x-ray was done today Microbiology. Bronchial washings showed no organisms. There are a few white blood cells. Labs been reviewed. Medicines been reviewed. Physical exam. Vital signs. See below General. No distress. Psychiatric. Alert oriented standing up given herself a bath. Markedly improved. Neurological. Cranial nerves are intact with some decreased hearing acuity. Patient moves all 4 extremities. Neck. Symmetrical no meningismus Lymphatics. No submandibular cervical or supraclavicular adenopathy. Chest. Kyphotic. No chest wall tenderness. Moves air well. Heart. No gallop Abdomen. Nontender. Rare bowel sounds Lower extremities. Nothing to suggest deep venous thrombophlebitis The remainder the physical exam is noncontributory. Plan. 1. Continue present regimen. 2. Keep the patient's FiO2 is 24%. 3. Looks strong enough to go to the floor from a pulmonary standpoint. Exam (Progress Note) - Constitutional Vitals: Period Temp Pulse Resp BP Sys/Richards Pulse Ox Last 24 Hr 97.6 F-98.7 F 53-91 12-34 127-172/62-108 85-100 Results - Labs CBC & BMP: 04/06/16 04:03 04/06/16 04:03
[2016-04-06] MEDS: ENOXAPARIN 40 MG/0.4 ML SYRINGE SUBCUT SCH (13:05)
[2016-04-06] MEDS: LISINOPRIL 20 MG TABLET PO SCH (14:18)
[2016-04-06] MEDS ORDERED: methylPREDNISolone SOD SUC 40 MG/1 ML VIAL IV SCH (21:00)
[2016-04-06] MEDS ORDERED: CARVEDILOL 12.5 MG TABLET PO SCH (21:00)
[2016-04-07] MEDS: ALBUTEROL/IPRATROPIUM 3 ML NEB RESP TX SCH ×6 (03:45→22:45)
[2016-04-07 03:51] LABS: Allen Test Positive
[2016-04-07 03:57] LABS: ABG HCO3 35.6 MMOL/L (20-26); ABG Oxygen Saturation 91.2 % (95-100); ABG PH 7.275 (7.35-7.45); ABG PO2 67.8 MM HG (80-95)
[2016-04-07 04:06] LABS: ABG PCO2 78.3 MM HG (35-48)
[2016-04-07] MEDS: PIPERACILLIN/TAZOBACTAM 3,375 MG in SODIUM CHLORIDE 0.9% 100 ML IV SCH (05:46)
--- NOTE | 2016-04-07 08:43 | Pulmonology Progress Note ---
Pulmonary - PN: Subj Interval history: This 60-year-old black female came in with decreased level of consciousness and required mechanical ventilation. She had severe hypercarbia. She reportedly has a history of asthma but does not have COPD. She's only mildly obese. She could have obesity hypoventilation syndrome. She has an abnormal cardiac shadow and evidence of left atrial enlargement on EKG. We need echocardiogram. We need neurology to see. Not clear why she would have chronic hypoventilation. She has seen Dr. Bray in the past and we need records from his clinic for previous evaluations. At the present time she is on the ventilator. ABGs acceptable although she has a marked metabolic alkalosis. Trying to correct that. We'll hold sedation and start weaning her today. I'm going to change her from propofol to Precedex. 04/01/2016 patient is much more alert. Tolerating CPAP trials. Still has a pretty severe metabolic alkalosis. We will once again check mechanics and ABGs on CPAP trial. Try to get her extubated. Her potassium is a little older replacing that. We'll reduce Lasix. Continue with Diamox. Records from Dr. Bray's office showed that she has chronic obstructive lung disease and pulmonary hypertension. Also said to have congestive heart failure. They did not send any echocardiograms. Echo from here is pending. 04/02/2016 patient did CPAP's well yesterday. Respiratory rate was a little high initially. Still had problems with metabolic alkalosis. That has been mostly corrected now. Her chest x-ray shows some atelectasis in the left base. I will plan bronchoscopy this morning. Hopefully we can get her extubated later on this morning. Her echo has come back showing left ventricular hypertrophy with diastolic dysfunction but no significant pulmonary hypertension. Normal LV ejection fraction. 04/03/2016 patient was extubated. She still has an elevated PCO2 of about 69. 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 She previously used CPAP for obstructive sleep apnea but she quit using it because she said she felt bothered her. We will get a sleep lab to look at her and see if she needs further testing there. She has a mild respiratory acidosis still. She should be able to move to the floor today. Changing to oral theophylline. 04/04/2016 patient has been alert and unable to eat since being extubated. However she has an elevated PCO2 of 81. She had a sleep study last night while on 1 L of oxygen. Results are pending. I have tentatively ordered BiPAP for tonight plus as needed. Dr. Keith will review the results and adjust as indicated. She has a history of COPD but has never been a smoker. This is primarily asthma with remodeling changes. 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 Her elevated PCO2 is still out of the range I would expect with this. 04/07/2016 patient now in a regular room. She is ambulatory in the room and is quite alert. She still has an elevated PCO2 close to 80. She had a sleep study done last week and we should have the reports today to decide about her BiPAP at night. Her acute bronchitis is better and we can change her to oral antibiotics. She has asthma with remodeling changes. Chronic respiratory failure with an acute exacerbation. Exam (Progress Note) - Constitutional Vitals: Period Temp Pulse Resp BP Sys/Richards Pulse Ox Last 24 Hr 97.8 F-98.6 F 58-91 14-29 137-184/72-108 92-100 Exam: She remains alert. She is ambulatory in her room. Seems oriented, answering questions. Face is symmetrical. Vital signs are normal. Pulse is around 70 with frequent premature beats. Neck supple no bruits. Chest sounds clear. She 's not tight. Heart irregular without murmur. Abdomen soft nontender no masses. Bowel sounds present. Extremities no clubbing cyanosis. She has trace of edema. Results - Labs CBC & BMP: 04/06/16 04:03 04/06/16 04:03 Lab Results: I have reviewed the past 24 hour labs Assessment and Plan (1) Acute and chronic respiratory failure with hypercapnia Status: Acute Assessment and plan: With her marked hypercarbia and decreased level of consciousness, she clearly has acute respiratory failure. Her pH is alkalotic despite hypercarbia which would indicate chronic respiratory failure. Because of the respiratory failure is not clear. She is said to have never smoked. She does not appear to be having a severe asthma attack. She may have obesity hypoventilation syndrome or some form of central hypoventilation. We need to evaluate her brain. At this point I will give her Diamox to try to correct her electrolyte abnormalities. We will ventilate her until her mental status improves. We need further past history when available. 03/31/16 acute on chronic respiratory failure. The etiology of her chronic hypercapnia is not clear. Evaluating today for a central cause. She does have infiltrates on the films today. Appears to have a bilateral pneumonia. 04/01/16 she has diuresed vigorously. Bicarbonate level is down to 39, which is still somewhat elevated. Tolerating CPAP trials. We will see if we can get her extubated this morning. 04/02/2016 metabolic alkalosis has been mostly corrected. Probably can get her extubated today. Mechanics were good yesterday. 04/03/2016 patient has done well postextubation. She has chronic hypercarbia. May have an element of obesity hypoventilation syndrome. Will get sleep doctor to see. 04/04/2016 patient remains alert despite having a PCO2 of 81 and pH is 7.21. We will try treating her with BiPAP at night plus as needed during the daytime. She had a type of sleep study last night. Await Dr. Keith's input. 04/07/2016 she shortened looks better than her blood gases today. She is wide awake and alert despite the marked hypercarbia. Hopefully sleep study will help us there. Current Visit: Yes (2) Asthma Status: Acute Assessment and plan: Reportedly has history of asthma. She certainly does not sound tight. We'll treat for asthma exacerbation with steroids bronchodilators plus empiric antibiotics. Add Aminophyllin. 03/31/16 she's not tight. Continuing with above regimen. 04/01/16 again she is not tight minimal expiratory rhonchi. Continuing steroids and bronchodilators. 04/02/2016 no active bronchospasm. 04/03/2016 no active bronchospasm. Continuing with steroids and bronchodilators. Continue with Singulair. 04/04/2016 she is not having any active bronchospasm. Continue current treatment. 04/07/2016 continue current treatment except changing to oral prednisone and antibiotics. Will add Breo. Current Visit: Yes (3) Congestive heart failure with cardiomyopathy Status: Acute Assessment and plan: Agree with diuresing her. Her BNP was somewhat elevated. Echocardiogram is pending. May need cardiology to see. She has an abnormal contour to her heart on the chest x-ray. 03/31/16 Await echo. It appears that she has left atrial enlargement on chest x- ray and EKG. We'll see what the echo shows. 04/01/16 echo is still pending. She has diuresed vigorously. 04/02/2016 echo showed left ventricular hypertrophy. Normal LV ejection fraction. Only mild pulmonary hypertension. 04/03/2016 no signs of heart failure now. 04/04/2016 apparently had diastolic dysfunction as a cause of her acute congestive heart failure and this has improved. 04/07/2016 this appears to be under better control. Current Visit: Yes (4) Pneumonia of both lower lobes Status: Acute Assessment and plan: She does have basilar infiltrates bilaterally. This despite the fact that we have diuresed her. We'll start on appropriate antibiotics. 04/01/16 continuing with empiric antibiotics. Also diuresing. 04/02/2016 patient on empiric antibiotics. Chest x-ray is showing some atelectasis at the left base and I will plan bronchoscopy to clean out prior to weaning trial. 04/03/2016 continuing with antibiotics. 04/04/16 bronchopneumonia is improved as well. 04/07/2016 much improved. Current Visit: Yes
[2016-04-07] MEDS ORDERED: MONTELUKAST 10 MG TABLET PO SCH (09:00)
[2016-04-07] MEDS ORDERED: THEOPHYLLINE ER (24 HR) 300 MG CAPSULE PO SCH (09:00)
[2016-04-07] MEDS ORDERED: PANTOPRAZOLE 40 MG TABLET PO SCH (09:00)
[2016-04-07] MEDS ORDERED: BREO ELLIPTA INH SCH (09:00)
[2016-04-07] MEDS ORDERED: ENOXAPARIN 40 MG/0.4 ML SYRINGE SUBCUT SCH (09:00)
[2016-04-07] MEDS: AMOXICILLIN/CLAV 500 MG TABLET PO SCH ×2 (09:02→17:31)
[2016-04-07] MEDS: predniSONE 20 MG TABLET PO SCH (09:03)
[2016-04-07] MEDS: LISINOPRIL 20 MG TABLET PO SCH (09:03)
--- NOTE | 2016-04-07 09:30 | Hospitalist Progress Note ---
Assessment and Plan (1) Respiratory failure Status: Acute Assessment and plan: 1)asthma with diastolic heart faliure exacerbation causing resp failure- improved. Did not wear BIPAP last night because of some malfunction but she has liked it so far, and her pCO2 is near 80. Dr Godfrey adjusted her antibiotics and steroids. Continue to be up and around, home soon. She will have CPAP/BIPAP at discharge- Dr Keith is reviewing data and will make a plan. Current Visit: Yes (2) Hypercarbia Status: Acute Current Visit: Yes (3) Asthma Status: Acute Current Visit: Yes (4) Metabolic alkalosis Status: Chronic Current Visit: Yes (5) Unspecified sleep apnea Status: Acute Current Visit: Yes (6) Diastolic CHF Status: Acute Current Visit: Yes Hospitalist: Subjective Interval history: Ms Welsh is doing very well.She thinks she will be ready to go home on Thursday. She is up moving around the room on O2 without complaints, breathing easily, very alert. Moved form the unit yesterday. Exam - Constitutional Vitals: Period Temp Pulse Resp BP Sys/Richards Pulse Ox Last 24 Hr 97.8 F-98.6 F 58-91 18-29 137-184/72-108 92-100 General appearance: no acute distress, over weight - Head Head exam: Present: normocephalic, atraumatic - Eye Eye exam: Present: EOMI. Absent: scleral icterus - Respiratory Respiratory exam: Present: clear to auscultation bilaterally - Cardiovascular Cardiovascular exam: Present: regular rate and rhythm - GI/Abdominal GI/Abdominal exam: Present: normal bowel sounds, soft. Absent: tenderness - Extremities Exam Extremities exam: Present: edema (1+at ankles- better per patient) Results - Labs CBC & BMP: 04/06/16 04:03 04/06/16 04:03 Lab Results: I have reviewed the past 24 hour labs
[2016-04-07] MEDS: THEOPHYLLINE ER (24 HR) 300 MG CAPSULE PO SCH (12:04)
[2016-04-07] MEDS: CARVEDILOL 12.5 MG TABLET PO SCH ×2 (12:04→17:32)
[2016-04-07] MEDS: MONTELUKAST 10 MG TABLET PO SCH (12:05)
[2016-04-07] MEDS: PANTOPRAZOLE 40 MG TABLET PO SCH (12:05)
[2016-04-07] MEDS: ENOXAPARIN 40 MG/0.4 ML SYRINGE SUBCUT SCH (12:07)
--- NOTE | 2016-04-07 12:52 | Sleep Medicine Progress Note ---
Assessment and Plan (1) Unspecified sleep apnea Status: Acute Assessment and plan: Patient will not qualify for CPAP or BiPAP therapy based on diagnosis of obstructive sleep apnea after a negative HST evaluation. She will have to be set up for polysomnography. She may qualify for positive pressure ventilation for chronic respiratory failure that is life-threatening but will defer to Dr. Godfrey regarding that. I will see her in follow-up in the sleep lab. Current Visit: Yes (2) Hypertension Status: Acute Current Visit: Yes (3) Congestive heart failure with cardiomyopathy Status: Acute Current Visit: Yes Sleep Medicine Subjective Interval history: Patient is improving. She has been using BiPAP at night by her report. Her HST from last weight was reviewed and did not show significant sleep apnea. Her overall apnea-hypopnea index was within normal limits at 3.1. She did have O2 desaturation during the study to lows of 80% with an average O2 sat of 92%. Based on a nondiagnostic HST evaluation with high clinical suspicion for sleep apnea, she will need to be set up for formal in lab polysomnography. This will be scheduled as an outpatient evaluation as soon as possible after discharge. Exam (Progress Note) - Constitutional Vitals: Period Temp Pulse Resp BP Sys/Richards Pulse Ox Last 24 Hr 97.8 F-98.6 F 54-84 18-29 145-184/72-102 92-100 Results - Labs CBC & BMP: 04/06/16 04:03 04/06/16 04:03 Lab Results: I have reviewed the past 24 hour labs
[2016-04-08] MEDS: AMOXICILLIN/CLAV 500 MG TABLET PO SCH ×3 (01:19→17:15)
[2016-04-08] MEDS: ALBUTEROL/IPRATROPIUM 3 ML NEB RESP TX SCH ×6 (03:22→23:31)
[2016-04-08] MEDS: predniSONE 20 MG TABLET PO SCH (08:48)
[2016-04-08] MEDS: CARVEDILOL 12.5 MG TABLET PO SCH ×2 (08:49→17:15)
[2016-04-08] MEDS: LISINOPRIL 20 MG TABLET PO SCH (08:49)
[2016-04-08] MEDS: MONTELUKAST 10 MG TABLET PO SCH (08:49)
[2016-04-08] MEDS: THEOPHYLLINE ER (24 HR) 300 MG CAPSULE PO SCH (08:50)
[2016-04-08] MEDS: PANTOPRAZOLE 40 MG TABLET PO SCH (08:50)
[2016-04-08] MEDS: ENOXAPARIN 40 MG/0.4 ML SYRINGE SUBCUT SCH (08:50)
--- NOTE | 2016-04-08 09:33 | Pulmonology Progress Note ---
Pulmonary - PN: Subj Interval history: This 60-year-old black female came in with decreased level of consciousness and required mechanical ventilation. She had severe hypercarbia. She reportedly has a history of asthma but does not have COPD. She's only mildly obese. She could have obesity hypoventilation syndrome. She has an abnormal cardiac shadow and evidence of left atrial enlargement on EKG. We need echocardiogram. We need neurology to see. Not clear why she would have chronic hypoventilation. She has seen Dr. Bray in the past and we need records from his clinic for previous evaluations. At the present time she is on the ventilator. ABGs acceptable although she has a marked metabolic alkalosis. Trying to correct that. We'll hold sedation and start weaning her today. I'm going to change her from propofol to Precedex. 04/01/2016 patient is much more alert. Tolerating CPAP trials. Still has a pretty severe metabolic alkalosis. We will once again check mechanics and ABGs on CPAP trial. Try to get her extubated. Her potassium is a little older replacing that. We'll reduce Lasix. Continue with Diamox. Records from Dr. Bray's office showed that she has chronic obstructive lung disease and pulmonary hypertension. Also said to have congestive heart failure. They did not send any echocardiograms. Echo from here is pending. 04/02/2016 patient did CPAP's well yesterday. Respiratory rate was a little high initially. Still had problems with metabolic alkalosis. That has been mostly corrected now. Her chest x-ray shows some atelectasis in the left base. I will plan bronchoscopy this morning. Hopefully we can get her extubated later on this morning. Her echo has come back showing left ventricular hypertrophy with diastolic dysfunction but no significant pulmonary hypertension. Normal LV ejection fraction. 04/03/2016 patient was extubated. She still has an elevated PCO2 of about 69. 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 She previously used CPAP for obstructive sleep apnea but she quit using it because she said she felt bothered her. We will get a sleep lab to look at her and see if she needs further testing there. She has a mild respiratory acidosis still. She should be able to move to the floor today. Changing to oral theophylline. 04/04/2016 patient has been alert and unable to eat since being extubated. However she has an elevated PCO2 of 81. She had a sleep study last night while on 1 L of oxygen. Results are pending. I have tentatively ordered BiPAP for tonight plus as needed. Dr. Keith will review the results and adjust as indicated. She has a history of COPD but has never been a smoker. This is primarily asthma with remodeling changes. 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 Her elevated PCO2 is still out of the range I would expect with this. 04/07/2016 patient now in a regular room. She is ambulatory in the room and is quite alert. She still has an elevated PCO2 close to 80. She had a sleep study done last week and we should have the reports today to decide about her BiPAP at night. Her acute bronchitis is better and we can change her to oral antibiotics. She has asthma with remodeling changes. Chronic respiratory failure with an acute exacerbation. 04/08/2016 patient is feeling much better and ambulatory. She has chronic respiratory failure secondary to COPD/asthma. She has a resting room air PCO2 of 78. She was given a home sleep study in the hospital and tested negative for obstructive sleep apnea. She has been on the BiPAP mode in the hospital but the PCO2 has not been improving. She needs noninvasive mechanical ventilation post discharge. She requires a volume targeted pressure support with auto EPAP. She also needs alto breath right delivery to avoid breath stacking and air trapping. Will have social media intern to obtain a home trilogy device with AVAPS A/E for use at discharge. I have discussed the equipment with Javier suh [facility]. Dr. Keith has assisted with this as well. Exam (Progress Note) - Constitutional Vitals: Period Temp Pulse Resp BP Sys/Richards Pulse Ox Last 24 Hr 97.6 F-98.1 F 54-89 16-22 129-198/72-98 94-100 Exam: She remains alert. She is ambulatory in her room. Seems oriented, answering questions. Face is symmetrical. Vital signs are normal. Pulse is around 70 with frequent premature beats. Neck supple no bruits. Chest sounds clear. She 's not tight. Heart irregular without murmur. Abdomen soft nontender no masses. Bowel sounds present. Extremities no clubbing cyanosis. She has trace of edema. Results - Labs CBC & BMP: 04/06/16 04:03 04/06/16 04:03 Lab Results: I have reviewed the past 24 hour labs Assessment and Plan (1) Acute and chronic respiratory failure with hypercapnia Status: Acute Assessment and plan: With her marked hypercarbia and decreased level of consciousness, she clearly has acute respiratory failure. Her pH is alkalotic despite hypercarbia which would indicate chronic respiratory failure. Because of the respiratory failure is not clear. She is said to have never smoked. She does not appear to be having a severe asthma attack. She may have obesity hypoventilation syndrome or some form of central hypoventilation. We need to evaluate her brain. At this point I will give her Diamox to try to correct her electrolyte abnormalities. We will ventilate her until her mental status improves. We need further past history when available. 03/31/16 acute on chronic respiratory failure. The etiology of her chronic hypercapnia is not clear. Evaluating today for a central cause. She does have infiltrates on the films today. Appears to have a bilateral pneumonia. 04/01/16 she has diuresed vigorously. Bicarbonate level is down to 39, which is still somewhat elevated. Tolerating CPAP trials. We will see if we can get her extubated this morning. 04/02/2016 metabolic alkalosis has been mostly corrected. Probably can get her extubated today. Mechanics were good yesterday. 04/03/2016 patient has done well postextubation. She has chronic hypercarbia. May have an element of obesity hypoventilation syndrome. Will get sleep doctor to see. 04/04/2016 patient remains alert despite having a PCO2 of 81 and pH is 7.21. We will try treating her with BiPAP at night plus as needed during the daytime. She had a type of sleep study last night. Await Dr. Keith's input. 04/07/2016 she shortened looks better than her blood gases today. She is wide awake and alert despite the marked hypercarbia. Hopefully sleep study will help us there. 04/08/2016 this is due to COPD/asthma. May have an element of obesity hypoventilation. She needs a trilogy AVAPS machine for home use Current Visit: Yes (2) Asthma Status: Acute Assessment and plan: Reportedly has history of asthma. She certainly does not sound tight. We'll treat for asthma exacerbation with steroids bronchodilators plus empiric antibiotics. Add Aminophyllin. 03/31/16 she's not tight. Continuing with above regimen. 04/01/16 again she is not tight minimal expiratory rhonchi. Continuing steroids and bronchodilators. 04/02/2016 no active bronchospasm. 04/03/2016 no active bronchospasm. Continuing with steroids and bronchodilators. Continue with Singulair. 04/04/2016 she is not having any active bronchospasm. Continue current treatment. 04/07/2016 continue current treatment except changing to oral prednisone and antibiotics. Will add Breo. 04/08/2016 continue with Breo at home. Needs antibiotics and prednisone for about 5 more days by mouth. Current Visit: Yes (3) Congestive heart failure with cardiomyopathy Status: Acute Assessment and plan: Agree with diuresing her. Her BNP was somewhat elevated. Echocardiogram is pending. May need cardiology to see. She has an abnormal contour to her heart on the chest x-ray. 03/31/16 Await echo. It appears that she has left atrial enlargement on chest x- ray and EKG. We'll see what the echo shows. 04/01/16 echo is still pending. She has diuresed vigorously. 04/02/2016 echo showed left ventricular hypertrophy. Normal LV ejection fraction. Only mild pulmonary hypertension. 04/03/2016 no signs of heart failure now. 04/04/2016 apparently had diastolic dysfunction as a cause of her acute congestive heart failure and this has improved. 04/07/2016 this appears to be under better control. 04/08/2016 this is improved. Has pulmonary hypertension and left ventricular hypertrophy probably some diastolic dysfunction. This is all the more reason for using noninvasive mechanical ventilation at night in this patient. Current Visit: Yes (4) Pneumonia of both lower lobes Status: Acute Assessment and plan: She does have basilar infiltrates bilaterally. This despite the fact that we have diuresed her. We'll start on appropriate antibiotics. 04/01/16 continuing with empiric antibiotics. Also diuresing. 04/02/2016 patient on empiric antibiotics. Chest x-ray is showing some atelectasis at the left base and I will plan bronchoscopy to clean out prior to weaning trial. 04/03/2016 continuing with antibiotics. 04/04/16 bronchopneumonia is improved as well. 04/07/2016 much improved. 04/08/2016 clinically improved. Ready for discharge. Current Visit: Yes
--- NOTE | 2016-04-08 10:48 | Discharge Summary ---
<Eulalia García - Last Filed: 04/08/16 10:40> Hospital Course - Hospital Course Hospital Course: Ms. Clark was admitted on 03/30 with acute diastolic CHF with cardiomyopathy, HTn, hypercarbia, and acute respiratory failure requiring intubation. She was treated with IV zosyn and zithromax for aspiration pneumonia. Pulmonary was consulted and saw on 03/30 for acute on chronic respiratory failure, asthma, CHF with cardiomyopathy. On 04/02, Dr. Godfrey performed a bronch that showed retained secretions and mucous plugs. She did have a component of metabolic alkalosis. Dr. Gabrielle Keith was consulted for sleep medicine for likely sleep apnea. HST was performed and was started on bipap and this will be continued at night at home. She is much improved from admit and she will be discharged home on appropriate medications and follow up. - Time spent with patient Time with patient DS: Greater than 30 minutes (due to plan, doc and med rec.) Diagnosis - Discharge Diagnosis (1) Acute diastolic CHF (congestive heart failure) Status: Acute (2) Acute and chronic respiratory failure with hypercapnia Status: Acute (3) Asthma Status: Acute (4) Hypertension Status: Acute (5) Pneumonia of both lower lobes Status: Acute (6) Unspecified sleep apnea Status: Acute (7) Metabolic alkalosis Status: Chronic Specialty Discharge - Follow Up or Referrals Follow up with: Rigo Godfrey MD [Physician] - 05/07/16 12:30 pm (YOU ARE SCHEDULED FOR A SLEEP STUDY AT THE SLEEP LAB. PLEASE DIANA [phone] FOR ANY QUESTIONS. YOUR APPT. TIME IS 7:15 P.M.CHECK IN AT ADMISSIONS DEPT. IN THE EMERGENCY ROOM THANKS) Discharge Plan - Discharge Data Disposition: Home Health Service - Discharge Medications New Albuterol Sulfate [Albuterol Neb] 0.63 mg RESP TX Q8H PRN #90 neb PRN Reason: Shortness Of Breath/Wheezing Amoxicillin/Clav Tab [Augmentin Tab] 500 mg PO Q8H #15 tablet Theophylline ER Cap (24 Hr) [Peter-24] 300 mg PO DAILY #30 capsule Continue Montelukast Tab [Singulair Tab] 10 mg PO DAILY predniSONE TAB [PredniSONE] 40 mg PO DAILY #25 tablet Changed Carvedilol [Coreg] 12.5 mg PO BID #0 Lisinopril 40 mg PO DAILY #30 Furosemide Tab [Lasix Tab] 20 mg PO DAILY #0 Discontinued amLODIPine [Norvasc] 10 mg PO DAILY Azithromycin [Azithromycin Z Pack] 250 mg PO DAILY - Follow Up or Referral Follow Up: Rigo Godfrey MD [Physician] - 05/07/16 12:30 pm (YOU ARE SCHEDULED FOR A SLEEP STUDY AT THE SLEEP LAB. PLEASE DIANA [phone] FOR ANY QUESTIONS. YOUR APPT. TIME IS 7:15 P.M.CHECK IN AT ADMISSIONS DEPT. IN THE EMERGENCY ROOM THANKS) Gabrielle Keith MD [Physician] - 2 Weeks (for formal sleep study. Seen by Dr Keith in the hospital ) dr melissa [Other] - 2 Weeks - Forms/Instructions Instructions: Heart Failure (DC) Exam - Constitutional Vitals: Period Temp Pulse Resp BP Sys/Richards Pulse Ox Last 24 Hr 98.2 F-98.3 F 57-92 17-20 146-172/74-93 93-100 DS: Provider Date of admission: 03/30/16 11:54 Primary care physician: . No PCP Attending physician on admission: Martin Gill MD Consults: 03/30/16 13:05 Consult to Pastoral Services [CONS] Routine Comment: Pastoral Screen: Request Lens Hardener Visit Pastoral Screen Source of Request: Family Name of Physician Requesting: CAROLINA CLARK 04/02/16 07:30 Consult to Physical Therapy [CONS] Routine Reason for Physical Therapy: Evaluate and Treat 04/03/16 09:15 Consult to Sleep Center [CONS] Routine Reason for Sleep Center: Sleep Center Physician Consult Comment: VINH 04/07/16 08:44 Consult to Pharmacy [CONS] Routine Reason for Pharmacy Consult: Other Comment: Start Breo 200 one puff daily 04/08/16 09:27 Consult to Case Mgmt/Social Srvs [CONS] Routine Reason for Case Mgmt/Social Srvs: Equipment Consult Comment: Obtain Trilogy for noninvasive mechanical ventilation at home. AVAPS A/E Discharging clinician: Eulalia García NP Expected date of discharge: 04/08/16 <Isabela Andre - Last Filed: 04/09/16 13:58> Hospital Course - Hospital Course Hospital Course: patient seen and examined. Hospital course reviewed and edited. Spoke with Dr Godfrey and he would like to resume lasix. We will send patient home on Augmentin for 4 more days to complete a 14 day course of antibiotics. Dr. Godfrey would like her back on 20 mg once a day of Lasix. Echocardiogram showed an EF of 60% with grade 1 diastolic dysfunction. Lasix were held during the hospital course due to metabolic alkalosis. Daughter informed me that the oxygen machine at home was not working properly and this will be replaced. She has also had a trilogy machine that set up for home. We will also get her a nebulizer machine for home for giving albuterol treatments. Home health with home O2 and triology machine for home. Diagnosis - Discharge Diagnosis (1) Acute and chronic respiratory failure with hypercapnia Status: Acute (2) Asthma Status: Acute (3) Pneumonia of both lower lobes Status: Acute (4) Unspecified sleep apnea Status: Acute (5) Acute diastolic CHF (congestive heart failure) Status: Acute Discharge Plan - Discharge Data Condition at Discharge: Stable Discharge Diet: heart healthy Activity: resume usual activities as tolerated, wear oxygen at all times Hygiene: no restrictions Weight Bearing at Discharge: full weight bearing Exam - Constitutional General appearance: no acute distress, over weight - Respiratory Respiratory exam: Present: clear to auscultation bilaterally. Absent: rhonchi, wheezes - Cardiovascular Cardiovascular exam: Present: regular rate and rhythm. Absent: systolic murmur - GI/Abdominal GI/Abdominal exam: Present: normal bowel sounds, soft. Absent: tenderness - Extremities Exam Extremities exam: Present: normal inspection, normal capillary refill - Neurological Exam Neurological exam: Present: alert, oriented X3 - Psychiatric Psychiatric exam: Present: normal affect, normal mood
--- NOTE | 2016-04-08 13:58 | Hospitalist Progress Note ---
Assessment and Plan (1) Acute and chronic respiratory failure with hypercapnia Status: Acute Assessment and plan: triology machine for home Current Visit: Yes (2) Asthma Status: Acute Assessment and plan: Continue prednisone and theophylline Current Visit: Yes (3) Pneumonia of both lower lobes Status: Acute Assessment and plan: Continue Augmentin. Current Visit: Yes (4) Unspecified sleep apnea Status: Acute Assessment and plan: Trilogy machine for home Current Visit: Yes (5) Acute diastolic CHF (congestive heart failure) Status: Acute Assessment and plan: cont coreg, not on lasix stable Current Visit: Yes Hospitalist: Subjective Interval history: Patient was up sitting in a chair. She is on O2 and is also on O2 at home. Dr. Godfrey is working on getting her trilogy machine. Exam - Constitutional Vitals: Period Temp Pulse Resp BP Sys/Richards Pulse Ox Last 24 Hr 97.6 F-98.1 F 55-89 16-22 129-198/72-98 94-100 Exam: Heart Rate-[RRR] Lungs-[CTAB] GI-[+bs soft, NT] Ext-[no edema] Results - Labs CBC & BMP: 04/06/16 04:03 04/06/16 04:03 Lab Results: I have reviewed the past 24 hour labs Specialty Discharge - Follow Up or Referrals Follow up with: Rigo Godfrey MD [Physician] - 1 Month (YOU ARE SCHEDULED FOR A SLEEP STUDY AT THE SLEEP LAB. PLEASE DIANA [phone] FOR ANY QUESTIONS. YOUR APPT. TIME IS 7:15 P.M.CHECK IN AT ADMISSIONS DEPT. IN THE EMERGENCY ROOM THANKS)
[2016-04-09] MEDS: AMOXICILLIN/CLAV 500 MG TABLET PO SCH ×2 (01:21→09:30)
[2016-04-09] MEDS: ALBUTEROL/IPRATROPIUM 3 ML NEB RESP TX SCH ×4 (03:34→14:23)
--- NOTE | 2016-04-09 08:33 | Pulmonology Progress Note ---
Pulmonary - PN: Subj Interval history: This 60-year-old black female came in with decreased level of consciousness and required mechanical ventilation. She had severe hypercarbia. She reportedly has a history of asthma but does not have COPD. She's only mildly obese. She could have obesity hypoventilation syndrome. She has an abnormal cardiac shadow and evidence of left atrial enlargement on EKG. We need echocardiogram. We need neurology to see. Not clear why she would have chronic hypoventilation. She has seen Dr. Bray in the past and we need records from his clinic for previous evaluations. At the present time she is on the ventilator. ABGs acceptable although she has a marked metabolic alkalosis. Trying to correct that. We'll hold sedation and start weaning her today. I'm going to change her from propofol to Precedex. 04/01/2016 patient is much more alert. Tolerating CPAP trials. Still has a pretty severe metabolic alkalosis. We will once again check mechanics and ABGs on CPAP trial. Try to get her extubated. Her potassium is a little older replacing that. We'll reduce Lasix. Continue with Diamox. Records from Dr. Bray's office showed that she has chronic obstructive lung disease and pulmonary hypertension. Also said to have congestive heart failure. They did not send any echocardiograms. Echo from here is pending. 04/02/2016 patient did CPAP's well yesterday. Respiratory rate was a little high initially. Still had problems with metabolic alkalosis. That has been mostly corrected now. Her chest x-ray shows some atelectasis in the left base. I will plan bronchoscopy this morning. Hopefully we can get her extubated later on this morning. Her echo has come back showing left ventricular hypertrophy with diastolic dysfunction but no significant pulmonary hypertension. Normal LV ejection fraction. 04/03/2016 patient was extubated. She still has an elevated PCO2 of about 69. 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 She previously used CPAP for obstructive sleep apnea but she quit using it because she said she felt bothered her. We will get a sleep lab to look at her and see if she needs further testing there. She has a mild respiratory acidosis still. She should be able to move to the floor today. Changing to oral theophylline. 04/04/2016 patient has been alert and unable to eat since being extubated. However she has an elevated PCO2 of 81. She had a sleep study last night while on 1 L of oxygen. Results are pending. I have tentatively ordered BiPAP for tonight plus as needed. Dr. Keith will review the results and adjust as indicated. She has a history of COPD but has never been a smoker. This is primarily asthma with remodeling changes. 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 Her elevated PCO2 is still out of the range I would expect with this. 04/07/2016 patient now in a regular room. She is ambulatory in the room and is quite alert. She still has an elevated PCO2 close to 80. She had a sleep study done last week and we should have the reports today to decide about her BiPAP at night. Her acute bronchitis is better and we can change her to oral antibiotics. She has asthma with remodeling changes. Chronic respiratory failure with an acute exacerbation. 04/08/2016 patient is feeling much better and ambulatory. She has chronic respiratory failure secondary to COPD/asthma. She has a resting room air PCO2 of 78. She was given a home sleep study in the hospital and tested negative for obstructive sleep apnea. She has been on the BiPAP mode in the hospital but the PCO2 has not been improving. She needs noninvasive mechanical ventilation post discharge. She requires a volume targeted pressure support with auto EPAP. She also needs alto breath right delivery to avoid breath stacking and air trapping. Will have community mental health social worker to obtain a home trilogy device with AVAPS A/E for use at discharge. I have discussed the equipment with Javier suh [facility]. Dr. Keith has assisted with this as well. 04/09/2016 patient ready for discharge. Arrangements have been made for a trilogy AVAPS noninvasive mechanical ventilation device for her to use at home at night. I will follow in the office. Appointment has been set up for 1 month. She needs to continue oral theophylline and her Breo inhaler. Exam (Progress Note) - Constitutional Vitals: Period Temp Pulse Resp BP Sys/Richards Pulse Ox Last 24 Hr 98.0 F-98.3 F 57-92 16-20 141-158/74-92 94-100 Exam: She remains alert. She is ambulatory in her room. Seems oriented, answering questions. Face is symmetrical. Vital signs are normal. Pulse is around 70 with frequent premature beats. Neck supple no bruits. Chest sounds clear. She 's not tight. Heart irregular without murmur. Abdomen soft nontender no masses. Bowel sounds present. Extremities no clubbing cyanosis. She has trace of edema. Results - Labs CBC & BMP: 04/06/16 04:03 04/06/16 04:03 Lab Results: I have reviewed the past 24 hour labs Assessment and Plan (1) Acute and chronic respiratory failure with hypercapnia Status: Acute Assessment and plan: With her marked hypercarbia and decreased level of consciousness, she clearly has acute respiratory failure. Her pH is alkalotic despite hypercarbia which would indicate chronic respiratory failure. Because of the respiratory failure is not clear. She is said to have never smoked. She does not appear to be having a severe asthma attack. She may have obesity hypoventilation syndrome or some form of central hypoventilation. We need to evaluate her brain. At this point I will give her Diamox to try to correct her electrolyte abnormalities. We will ventilate her until her mental status improves. We need further past history when available. 03/31/16 acute on chronic respiratory failure. The etiology of her chronic hypercapnia is not clear. Evaluating today for a central cause. She does have infiltrates on the films today. Appears to have a bilateral pneumonia. 04/01/16 she has diuresed vigorously. Bicarbonate level is down to 39, which is still somewhat elevated. Tolerating CPAP trials. We will see if we can get her extubated this morning. 04/02/2016 metabolic alkalosis has been mostly corrected. Probably can get her extubated today. Mechanics were good yesterday. 04/03/2016 patient has done well postextubation. She has chronic hypercarbia. May have an element of obesity hypoventilation syndrome. Will get sleep doctor to see. 04/04/2016 patient remains alert despite having a PCO2 of 81 and pH is 7.21. We will try treating her with BiPAP at night plus as needed during the daytime. She had a type of sleep study last night. Await Dr. Keith's input. 04/07/2016 she shortened looks better than her blood gases today. She is wide awake and alert despite the marked hypercarbia. Hopefully sleep study will help us there. 04/08/2016 this is due to COPD/asthma. May have an element of obesity hypoventilation. She needs a trilogy AVAPS machine for home use 04/09/2016 she has chronic respiratory failure related to COPD and asthma. She has been set up for noninvasive mechanical ventilation at night at home. I will follow her long-term. Current Visit: Yes (2) Asthma Status: Acute Assessment and plan: Reportedly has history of asthma. She certainly does not sound tight. We'll treat for asthma exacerbation with steroids bronchodilators plus empiric antibiotics. Add Aminophyllin. 03/31/16 she's not tight. Continuing with above regimen. 04/01/16 again she is not tight minimal expiratory rhonchi. Continuing steroids and bronchodilators. 04/02/2016 no active bronchospasm. 04/03/2016 no active bronchospasm. Continuing with steroids and bronchodilators. Continue with Singulair. 04/04/2016 she is not having any active bronchospasm. Continue current treatment. 04/07/2016 continue current treatment except changing to oral prednisone and antibiotics. Will add Breo. 04/08/2016 continue with Breo at home. Needs antibiotics and prednisone for about 5 more days by mouth. 04/09/2016 ready for discharge on above meds. Could probably stop her Augmentin Current Visit: Yes (3) Congestive heart failure with cardiomyopathy Status: Acute Assessment and plan: Agree with diuresing her. Her BNP was somewhat elevated. Echocardiogram is pending. May need cardiology to see. She has an abnormal contour to her heart on the chest x-ray. 03/31/16 Await echo. It appears that she has left atrial enlargement on chest x- ray and EKG. We'll see what the echo shows. 04/01/16 echo is still pending. She has diuresed vigorously. 04/02/2016 echo showed left ventricular hypertrophy. Normal LV ejection fraction. Only mild pulmonary hypertension. 04/03/2016 no signs of heart failure now. 04/04/2016 apparently had diastolic dysfunction as a cause of her acute congestive heart failure and this has improved. 04/07/2016 this appears to be under better control. 04/08/2016 this is improved. Has pulmonary hypertension and left ventricular hypertrophy probably some diastolic dysfunction. This is all the more reason for using noninvasive mechanical ventilation at night in this patient. 04/09/2016 she has some peripheral edema but no rales. I do not think she is in failure at present. She is advised to follow a low-salt diet. Current Visit: Yes (4) Pneumonia of both lower lobes Status: Acute Assessment and plan: She does have basilar infiltrates bilaterally. This despite the fact that we have diuresed her. We'll start on appropriate antibiotics. 04/01/16 continuing with empiric antibiotics. Also diuresing. 04/02/2016 patient on empiric antibiotics. Chest x-ray is showing some atelectasis at the left base and I will plan bronchoscopy to clean out prior to weaning trial. 04/03/2016 continuing with antibiotics. 04/04/16 bronchopneumonia is improved as well. 04/07/2016 much improved. 04/08/2016 clinically improved. Ready for discharge. 04/09/16 this has improved. Probably has had enough antibiotics. Current Visit: Yes Specialty Discharge - Follow Up or Referrals Follow up with: Rigo Godfrey MD [Physician] - 1 Month (YOU ARE SCHEDULED FOR A SLEEP STUDY AT THE SLEEP LAB. PLEASE DIANA [phone] FOR ANY QUESTIONS. YOUR APPT. TIME IS 7:15 P.M.CHECK IN AT ADMISSIONS DEPT. IN THE EMERGENCY ROOM THANKS)
[2016-04-09] MEDS: ENOXAPARIN 40 MG/0.4 ML SYRINGE SUBCUT SCH (09:13)
[2016-04-09] MEDS: PANTOPRAZOLE 40 MG TABLET PO SCH (09:13)
[2016-04-09] MEDS: CARVEDILOL 12.5 MG TABLET PO SCH (09:13)
[2016-04-09] MEDS: THEOPHYLLINE ER (24 HR) 300 MG CAPSULE PO SCH (09:13)
[2016-04-09] MEDS: MONTELUKAST 10 MG TABLET PO SCH (09:13)
[2016-04-09] MEDS: predniSONE 20 MG TABLET PO SCH (09:13)
[2016-04-09] MEDS: LISINOPRIL 20 MG TABLET PO SCH (09:13)
[2016-04-09 14:55] VITALS: BP 164/91
== END 2016-04-09 15:45 | disposition home health service (06) | DRG 208 ==
LOC: N.ED 09:15 → SUATTDRO 11:54 → N.EDINP 11:54 → N.ICU 12:48 → N.2E 04-06 15:37
PROVIDERS: ADMIT Internal Medicine; ATTEND Internal Medicine

== ENCOUNTER 2016-06-09 16:50 | Inpatient (IN) ==
[2016-06-09] MEDS ORDERED: FUROSEMIDE 100 MG/10 ML VIAL IV STA (17:10)
[2016-06-09 17:27] LABS: Basophils # 0.1 10*3/uL (0.0-0.2); Basophils % 0.5 % (0.0-0.8); Eosinophils # 0.4 10*3/uL (0.0-0.87); Eosinophils % 3.6 % (0.00-10.9); Hematocrit 42.6 VOL% (35.7-47.0); Hemoglobin 12.7 GM/DL (12.0-16.0); Immature Granulocytes % 0.3 %; Immature Granulocytes Absolute 0.03 #; Lymphocytes # 2.1 10*3/uL (1.4-4.0); Lymphocytes % 20.4 % (21.3-54.2); Mean Corpuscular HGB Conc 29.8 GM/DL (32-36); Mean Corpuscular Hemoglobin 30 PG (27-34); Mean Corpuscular Volume 100.2 FL (87-102); Mean Platelet Volume 10.6 FL (9.6-12.0); Monocytes # 1.1 10*3/uL (0.11-0.8); Monocytes % 10.8 % (1.7-12.7); Neutrophils # 6.5 10*3/uL (1.4-7.4); Neutrophils % 64.4 % (38.7-73.9); Platelet Count 191 T/CUMM (130-400); Red Blood Count 4.25 MC/CUMM (3.8-5.5); Red Cell Distribution Width 15.2 % (9.3-17.3); White Blood Count 10.1 T/CUMM (4-12)
[2016-06-09 17:32] LABS: Apearance,Urine CLEAR (Clear); Bacteria,Urine Occasional /HPF (Few); Bilirubin,Urine Negative (Negative); Blood, Urine Negative (Negative); Glucose,Urine (UA) Negative (Negative); Ketones,Urine Negative (Negative); Nitrite,Urine Negative (Negative); Protein,Urine Negative; RBC,Urine 1 /HPF (0-4); Squamous Epithelial Cell,Urine Occasional /HPF (0-10); Urine Color Straw (Yellow); Urine Specific Gravity 1.006 (1.001-1.035); Urine Urobilinogen < 2.0 EU/DL (0.2-1.0); WBC,Urine 1 /HPF (0-6)
[2016-06-09 17:36] LABS: INR 1.1; PT Patient Result 11.8 SECS
[2016-06-09 18:15] LABS: Alanine Aminotransferase 18 U/L (13-56); Albumin 3.5 G/DL (3.4-5.0); Alkaline Phosphatase 73 U/L (45-117); Aspartate Amino Transferase 20 U/L (0-37); Blood Urea Nitrogen 16 MG/DL (7-18); Glucose 122 MG/DL (74-106); Magnesium 1.5 MG/DL (1.8-2.4); Osmolality,Calculated 278.5 MOS/KG (273-304); Potassium 3.2 MMOL/L (3.5-5.1); Sodium 139 MMOL/L (136-145); Total Protein 7.4 G/DL (6.4-8.3)
[2016-06-09] MEDS ORDERED: FUROSEMIDE 40 MG/4 ML VIAL ONE (18:19)
--- NOTE | 2016-06-09 18:50 | Emergency Department Note ---
Lan Ortiz Manpreet, am scribing for, and in the presence of, Javier Keyes MD 17:20. Wali Ortiz Robert M, MD, personally performed the services described in this documentation, ascribed by Suleiman Monten[place]ro in my presence, and it is both accurate and complete [id number] . Arrival - Arrival Chief Complaint: Shortness of Breath Stated Complaint: Cant Breathe ED Nursing Triage Note: Pt c/o SOB and non-productive cough. Pt on 2 LPB of O2 in triage. Mode of Arrival: Wheelchair Source: Patient, Family Time Seen by Provider: 06/09/16 17:06 - History of Present Illness HPI Narrative: Pt is a 60 y/o female with a Hx of CHF, HTN, and Asthma, who presents to the ED with her daughter c/o SOB. Pt states she takes fluid pills and denies fever, cough or CP. No other complaints/pains reported to the ED. Onset (ago): day(s) Consistency: constant Severity: mild, moderate Severity scale (1-10): 4 Allergies/Adverse Reactions: Allergies Allergy/AdvReac Type Severity Reaction Status Date / Time No Known Allergies Allergy Unverified 03/30/16 09:17 Home Medications: Home Medications Medication Instructions Recorded Confirmed Type Montelukast Tab [Singulair Tab] 10 mg PO BEDTIME 03/30/16 06/09/16 History Albuterol Sulfate [Albuterol Neb] 0.63 mg RESP TX Q8H PRN #90 neb 04/09/1606/09 Rx Fluticasone/Vilanterol [Breo 1 puff INH DAILY #1 inhaler 04/09/16 06/09/16 Rx Ellipta 200-25 Mcg INH] Carvedilol [Coreg] 25 mg PO BID 06/09/16 06/09/16 History Furosemide Tab [Lasix Tab] 40 mg PO TID 06/09/16 06/09/16 History Lisinopril 40 mg PO BID 06/09/16 06/09/16 History Review of System - Review of System 12 point system: reviewed and no additional remarkable complaints except as stated - Review of System Constitutional: Absent: diaphoresis, fever Respiratory: Present: respiratory distress. Absent: cough Cardiovascular: Absent: chest pain Gastrointestinal: Absent: abdominal pain, nausea, vomiting Musculoskeletal: Absent: arm pain, back pain, lower back pain, leg pain, neck pain Medical,Surgical,& Family Hx - Medical History Cardio: History of: Cerebrovascular Disease, CHF, Hypertension Neurology: History of: Cerebrovascular Accident (2008) Respiratory: History of: Asthma, Respiratory Problems ("lung disease") - Surgical History Reproductive Surgeries: Surgical HX of;: Hysterectomy - Family History Family History: Reports;: Family Diabetes, Family Heart Disease, Family Hypertension - Social History Smoking Status: Never smoker Exam Vital Signs: Vital Signs Temperature 98.2 F 06/09/16 17:10 Pulse Rate 78 06/09/16 17:10 Respiratory Rate 24 06/09/16 17:10 Blood Pressure 206/123 06/09/16 17:10 O2 Sat by Pulse Oximetry 79 L 06/09/16 16:53 - General General appearance: alert - Head Head exam: Present: atraumatic, normocephalic, normal inspection - Eye Eye exam: Present: normal appearance, PERRL, EOMI - ENT ENT exam: Present: normal exam, normal oropharynx, mucous membranes moist, TM's normal bilaterally - Neck Neck exam: Present: normal inspection, full ROM, trachea midline - Chest Chest inspection: Present: normal inspection, symmetric chest wall rise. Absent : tenderness - Respiratory Respiratory exam: Present: respiratory distress, rhonchi (Bilateral Rhonchi). Absent: normal lung sounds bilaterally - Cardiovascular Cardiovascular exam: Present: regular rate, normal rhythm, normal heart sounds. Absent: murmur, rubs, gallop - Abdominal Exam Abdominal exam: Present: soft, normal bowel sounds. Absent: distention, tenderness - Extremities Exam Extremities exam: Present: pedal edema (+3 Bilateral peal edema) - Back Exam Back exam: Present: normal inspection, full ROM. Absent: tenderness - Neurological Exam Neurological exam: Present: alert, oriented X3, CN II-XII intact, reflexes normal - Psychiatric Psychiatric exam: Present: normal affect, normal mood - Skin Skin exam: Present: warm, dry Results - Labs CBC & BMP: 06/09/16 17:15 06/09/16 17:15 Lab Results: I have reviewed the patients labs Labs: Lab Results WBC 10.1 T/CUMM (4-12) 06/09/16 17:15 RBC 4.25 MC/CUMM (3.8-5.5) 06/09/16 17:15 Hgb 12.7 GM/DL (12.0-16.0) 06/09/16 17:15 Hct 42.6 VOL% (35.7-47.0) 06/09/16 17:15 MCV 100.2 FL (87-102) 06/09/16 17:15 MCH 30 PG (27-34) 06/09/16 17:15 MCHC 29.8 GM/DL (32-36) L 06/09/16 17:15 RDW 15.2 % (9.3-17.3) 06/09/16 17:15 Plt Count 191 T/CUMM (130-400) 06/09/16 17:15 MPV 10.6 FL (9.6-12.0) 06/09/16 17:15 Neut % (Auto) 64.4 % (38.7-73.9) 06/09/16 17:15 Lymph % (Auto) 20.4 % (21.3-54.2) L 06/09/16 17:15 Quay % (Auto) 10.8 % (1.7-12.7) 06/09/16 17:15 Eos % (Auto) 3.6 % (0.00-10.9) 06/09/16 17:15 Baso % (Auto) 0.5 % (0.0-0.8) 06/09/16 17:15 Neut # (Auto) 6.5 10*3/uL (1.4-7.4) 06/09/16 17:15 Lymph # (Auto) 2.1 10*3/uL (1.4-4.0) 06/09/16 17:15 Quay # (Auto) 1.1 10*3/uL (0.11-0.8) H 06/09/16 17:15 Eos # (Auto) 0.4 10*3/uL (0.0-0.87) 06/09/16 17:15 Baso # (Auto) 0.1 10*3/uL (0.0-0.2) 06/09/16 17:15 Immature Gran % 0.3 % 06/09/16 17:15 Nucleated RBC % 0.0 /100WBC 06/09/16 17:15 Immature Gran # 0.03 # 06/09/16 17:15 Nucleated RBCs # 0.00 10*3/uL 06/09/16 17:15 INR 1.1 06/09/16 17:15 PT Patient/Control Mix 11.8 SECS 06/09/16 17:15 Sodium 139 MMOL/L (136-145) 06/09/16 17:15 Potassium 3.2 MMOL/L (3.5-5.1) L 06/09/16 17:15 Chloride 86 MMOL/L (98-107) L 06/09/16 17:15 Carbon Dioxide > 45 MMOL/L (21-32) H 06/09/16 17:15 BUN 16 MG/DL (7-18) 06/09/16 17:15 Creatinine 0.70 MG/DL (0.55-1.02) 06/09/16 17:15 GFR Calculation 114 ML/MIN 06/09/16 17:15 BUN/Creatinine Ratio 22.00 RATIO (6.00-20.00) H 06/09/16 17:15 Glucose 122 MG/DL (74-106) H 06/09/16 17:15 Calculated Osmolality 278.5 MOS/KG (273-304) 06/09/16 17:15 Calcium 9.0 MG/DL (8.5-10.1) 06/09/16 17:15 Magnesium 1.5 MG/DL (1.8-2.4) L 06/09/16 17:15 Total Bilirubin 1.50 MG/DL (0.2-1.0) H 06/09/16 17:15 AST 20 U/L (0-37) 06/09/16 17:15 ALT 18 U/L (13-56) 06/09/16 17:15 Alkaline Phosphatase 73 U/L (45-117) 06/09/16 17:15 Troponin I 0.090 NG/ML (0.00-0.045) H 06/09/16 17:15 B-Natriuretic Peptide 475 PG/ML (2-100) H 06/09/16 17:15 Total Protein 7.4 G/DL (6.4-8.3) 06/09/16 17:15 Albumin 3.5 G/DL (3.4-5.0) 06/09/16 17:15 Globulin 3.9 G/DL (2.3-3.5) H 06/09/16 17:15 Albumin/Globulin Ratio 0.8 RATIO (1.1-2.2) L 06/09/16 17:15 Urine Color Straw (Yellow) 06/09/16 17:10 Urine Appearance Clear (Clear) 06/09/16 17:10 Urine pH 7.0 (4.5-8.0) 06/09/16 17:10 Ur Specific [place] 1.006 (1.001-1.035) 06/09/16 17:10 Urine Protein Negative MG/DL 06/09/16 17:10 Urine Glucose (UA) Negative mg/dL (Negative) 06/09/16 17:10 Urine Ketones Negative mg/dL (Negative) 06/09/16 17:10 Urine Blood Negative mg/dL (Negative) 06/09/16 17:10 Urine Nitrate Negative (Negative) 06/09/16 17:10 Urine Bilirubin Negative mg/dL (Negative) 06/09/16 17:10 Urine Urobilinogen < 2.0 EU/DL (0.2-1.0) H 06/09/16 17:10 Urine Leukocytes Negative Festus/ul (Negative) 06/09/16 17:10 Urine RBC 1 /HPF (0-4) 06/09/16 17:10 Urine WBC 1 /HPF (0-6) 06/09/16 17:10 Ur Squamous Epith Cells Occasional /HPF (0-10) 06/09/16 17:10 Urine Bacteria Occasional /HPF (Few) 06/09/16 17:10 Ur Culture Indicated? Not indicated 06/09/16 17:10 - Diagnostic Findings Procedure: Chest x-ray: image reviewed by me (Slightly more vascular prominence suggests worsening CHF/pulmonary edema) Disposition Clinical Impression: Mild volume overload, Acute exacerbation of chronic obstructive airways disease , Hypercarbia Case discussed with: patient, patient's family Disposition: Still a Patient Condition: Stable Time of Disposition: 18:49
--- NOTE | 2016-06-09 18:59 | XRay Report ---
Exam: XR chest 1V portable Indication: Shortness of breath Comparison study: 04/05/2016 Findings: Cardiac silhouette is enlarged, similar to prior. Mild prominence of the central hilar and upper lobe pulmonary vasculature is noted suggesting a degree of pulmonary vascular engorgement. There is slight improved aeration within the lung bases as compared to prior. Minimal residual basilar opacities however are still noted and likely represent atelectasis. There is no pneumothorax. Osseous structures appear stable. Impression: Cardiomegaly with mild central perihilar interstitial prominence may represent mild pulmonary vascular engorgement or early edema changes. Improved aeration within the lung bases with minimal residual atelectasis suggested. PROCEDURE INTERPRETED AT [facility] DEPARTMENT OF RADIOLOGY Final Report Signed by: Noé Cordova
--- NOTE | 2016-06-09 19:55 | Hospitalist History & Physical ---
Assessment and Plan (1) Respiratory failure Status: Acute Assessment and plan: The patient is admitted to the hospital for worsening of chronic hypercarbic respiratory failure. The patient will be admitted for respiratory support with available equipment. We do not have volume-cycled noninvasive equipment available at this time. We will consult Dr. Godfrey. The patient will be treated with beta agonist nebulized breathing therapy and diuretic. We will give her IV antibiotic with Levaquin and recheck electrolytes in the morning. Potassium will be repleted. Current Visit: No Qualifiers: Chronicity: acute on chronic Respiratory failure complication: hypoxia and hypercapnia Qualified Code(s): J96.21 - Acute and chronic respiratory failure with hypoxia; J96.22 - Acute and chronic respiratory failure with hypercapnia (2) Hypercarbia Status: Acute Current Visit: Yes (3) Congestive heart failure with cardiomyopathy Status: Acute Current Visit: No (4) Acute and chronic respiratory failure with hypercapnia Status: Acute Current Visit: No (5) Acute diastolic CHF (congestive heart failure) Status: Acute Current Visit: No History of Present Illness Chief complaint: Shortness of breath, cough, altered mental status History of present illness: Ms. 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 The patient was tested and found to be appropriate for non-invasive volume-cycled ventilation during the last hospitalization. The patient comes to the hospital today with complaint of cough and shortness of breath. Her daughter states that she has had slurred speech and some delirium in the last day or 2. The patient was reluctant to come to the emergency room. The patient's symptoms are moderate to severe, continuous, and worsening. The patient's symptoms have not been associated with fever but have been associated with mild upper airway congestion. The patient denies angina or palpitations. The patient is admitted to the hospital for respiratory failure due to hypercarbia on account of COPD exacerbation and diastolic heart failure acute on chronic. Home Medications Medication Instructions Recorded Confirmed Type Montelukast Tab [Singulair Tab] 10 mg PO BEDTIME 03/30/16 06/09/16 History Albuterol Sulfate [Albuterol Neb] 0.63 mg RESP TX Q8H PRN #90 neb 04/09/1606/09 Rx Fluticasone/Vilanterol [Breo 1 puff INH DAILY #1 inhaler 04/09/16 06/09/16 Rx Ellipta 200-25 Mcg INH] Carvedilol [Coreg] 25 mg PO BID 06/09/16 06/09/16 History Furosemide Tab [Lasix Tab] 40 mg PO TID 06/09/16 06/09/16 History Lisinopril 40 mg PO BID 06/09/16 06/09/16 History Allergies Allergy/AdvReac Type Severity Reaction Status Date / Time No Known Allergies Allergy Unverified 03/30/16 09:17 Medical,Surgical,& Family Hx - Medical History Cardio: History of: Cerebrovascular Disease, CHF, Hypertension Neurology: History of: Cerebrovascular Accident (2007) Respiratory: History of: Asthma, Respiratory Problems ("lung disease") - Surgical History Reproductive Surgeries: Surgical HX of;: Hysterectomy - Family History Family History: Reports;: Family Diabetes, Family Heart Disease, Family Hypertension - Social History Smoking Status: Never smoker Marital Status: Single Lives With:: Children Functional capacity: wheelchair bound 12 point system: reviewed and no additional remarkable complaints except as stated Exam - Constitutional Vitals: Period Temp Pulse Resp BP Sys/Richards Pulse Ox Last 24 Hr 98.2 F-98.2 F 78-78 24-24 206/123 79 Exam: Constitutional System: Mild distress. No tremulousness. The patient has some slurring of speech. The patient appears drowsy Head: Normocephalic, atraumatic. Ears, Nose and Throat System: No evidence of Otitis or Mastoiditis. No epistaxis or discharge Eyes System: Pupils equal, round, and reactive. Extraocular muscles intact. Neck: Supple, without adenopathy, 1+ jugular venous distention. No thyromegaly , neck mass, or prior surgery apparent. Respiratory System: Chest moderate air trapping with mild upper airway congestion to auscultation. Cardiovascular System: Heart with regular rate and rhythm. No murmur. GI System: Abdomen soft, nontender. Normo active bowel sounds present. Musculoskeletal System: limbs with 1+ pedal edema. Full distal pulses. Neurological System: No discernable sensory deficit. No aphasia Psychiatric System: Conversation is fluent Results - Labs CBC & BMP: 06/09/16 17:15 06/09/16 17:15 Lab Results: I have reviewed the past 24 hour labs
[2016-06-09] MEDS ORDERED: DOCUSATE SODIUM 100 MG CAPSULE PO PRN (22:22)
[2016-06-09] MEDS ORDERED: ZALEPLON 5 MG CAPSULE PO PRN (22:22)
[2016-06-09] MEDS ORDERED: ACETAMINOPHEN 325 MG TABLET PO PRN (22:22)
[2016-06-09] MEDS ORDERED: NIFEdipine 10 MG CAPSULE PO PRN (22:22)
[2016-06-09] MEDS ORDERED: ALBUTEROL 0.63 MG/3 ML NEB RESP TX PRN (22:22)
[2016-06-09] MEDS ORDERED: ONDANSETRON 4 MG/2 ML VIAL IV PRN (22:22)
[2016-06-09] MEDS ORDERED: hydrALAZINE 20 MG/1 ML VIAL IV ONE (22:33)
[2016-06-09] MEDS ORDERED: hydrALAZINE 20 MG/1 ML VIAL ONE (22:36)
[2016-06-09] MEDS ORDERED: hydrALAZINE 20 MG/1 ML VIAL IM PRN (22:52)
--- NOTE | 2016-06-09 22:57 | Event Note ---
Rapid response call: I responded to rapid Bones: Room 274 on Ms. Kathy Welsh. Patient had been complaining of shortness of breath chest pressure and she had desaturated to 83%. She had been on nasal cannula oxygen saturations around 90%. She had very tight airways. Patient had the ordered duo nebs every 6 hours. She also was noted to have accelerated hybrid pressure with systolic blood pressure 200/ 94. On scanning the assessment patient was awake alert and able to answer my question cutting of statements to catch her breath. She is breathing about 24 breaths a minute very distant lung sounds. There was no julissa wheezing at the time. I reviewed the patient's labs and noted that on the chemistry her bicarbonate is already high suggesting CO2 retention. This was acute or chronic is difficult to tell so is worried to give her too much oxygen to respond to the hypoxemia. Stable give her treatment with the duo nebs and she started to feel better and breathing and saturations actually went up to 98%. I ordered a d-dimer, PT PTT with INR, troponin I now and every 3 hours 3 in order to transfer the patient to the CCU. Should be on full monitoring the EKG was done that shows possibility of septal infarct age undetermined there is also poor progression of anterior forces. All medications have been resumed of added hydralazine 10 mg IV every 6 hours as needed for systolic blood pressure greater than 180 mmHg. Hospital medicine will follow and advise accordingly.
[2016-06-09] MEDS: FUROSEMIDE 40 MG/4 ML VIAL IV SCH (23:00)
[2016-06-09] MEDS: POTASSIUM CHLORIDE 20 MEQ TABLET PO SCH (23:00)
[2016-06-09] MEDS: LEVOFLOXACIN INJ 500 MG in PREMIX 1 EACH IV SCH (23:01)
[2016-06-09] MEDS: MONTELUKAST 10 MG TABLET PO SCH (23:01)
[2016-06-09] MEDS: ENOXAPARIN 40 MG/0.4 ML SYRINGE SUBCUT SCH (23:01)
[2016-06-09] MEDS: CARVEDILOL 25 MG TABLET PO SCH (23:01)
[2016-06-09] MEDS: LISINOPRIL 20 MG TABLET PO SCH (23:01)
[2016-06-09 23:20] LABS: Blood Urea Nitrogen 15 MG/DL (7-18); Calcium 8.6 MG/DL (8.5-10.1); Glucose 196 MG/DL (74-106); Osmolality,Calculated 280.7 MOS/KG (273-304); Potassium 3.1 MMOL/L (3.5-5.1); Sodium 138 MMOL/L (136-145)
[2016-06-09 23:36] LABS: ABG Base Excess 25.4 MMOL/L (-2.5-2.5); ABG HCO3 50.8 MMOL/L (20-26); ABG Oxygen Saturation 89.7 % (95-100); ABG PH 7.349 (7.35-7.45); ABG PO2 61.2 MM HG (80-95); ABG TCO2 51.8 MMOL/L (23-27); Allen Test Positive
[2016-06-10 00:14] LABS: INR 1.1; PT Patient Result 12.1 SECS; Partial Thromboplastin Time 30.1 SECS (0-40)
[2016-06-10] MEDS: ALBUTEROL/IPRATROPIUM 3 ML NEB RESP TX SCH ×4 (01:12→20:15)
[2016-06-10] MEDS: POTASSIUM CHLORIDE 20 MEQ TABLET PO SCH ×6 (02:14→20:43)
[2016-06-10 03:15] LABS: ABG Base Excess 26.3 MMOL/L (-2.5-2.5); ABG HCO3 51.6 MMOL/L (20-26); ABG Oxygen Saturation 82.1 % (95-100); ABG PH 7.348 (7.35-7.45); ABG PO2 50.2 MM HG (80-95); ABG TCO2 52.9 MMOL/L (23-27); Pt O2 Delivery Device BIPAP
[2016-06-10] MEDS ORDERED: ALBUTEROL/IPRATROPIUM 3 ML NEB RESP TX PRN (03:55)
[2016-06-10 04:27] LABS: ABG Base Excess 25.6 MMOL/L (-2.5-2.5); ABG HCO3 51.1 MMOL/L (20-26); ABG Oxygen Saturation 96.1 % (95-100); ABG PH 7.339 (7.35-7.45); ABG PO2 84.8 MM HG (80-95); ABG TCO2 52.2 MMOL/L (23-27)
[2016-06-10 04:50] LABS: Blood Urea Nitrogen 15 MG/DL (7-18); Calcium 8.4 MG/DL (8.5-10.1); Glucose 102 MG/DL (74-106); Magnesium 1.4 MG/DL (1.8-2.4); Osmolality,Calculated 277.5 MOS/KG (273-304); Potassium 3.1 MMOL/L (3.5-5.1); Sodium 139 MMOL/L (136-145)
--- NOTE | 2016-06-10 06:16 | XRay Report ---
History: Shortness of breath Date: 06/09/2016 at 10:38 PM Study: Chest x-ray AP portable Comparison exam: 06/09/2016 at 5:23 PM There is continued cardiomegaly. There is mild pulmonary vascular engorgement, though this is stable. The mediastinal contours are unchanged. There is no gross layering pleural effusion. There is no new or worsening pulmonary process. There is slightly improved aeration in the right perihilar region. The osseous structures are unchanged. Impression: No adverse interval changes. Cardiomegaly and evidence of mild CHF. Improved aeration in the right perihilar region PROCEDURE INTERPRETED AT [facility] DEPARTMENT OF RADIOLOGY Final Report Signed by: Dr. Marcelina Iglesias
--- NOTE | 2016-06-10 07:34 | XRay Report ---
History: Decreased oxygen saturation Date: 06/10/2016 Study: Chest x-ray AP portable Comparison exam: 06/09/2016 There is cardiomegaly. The pulmonary vasculature is slightly prominent. The mediastinal contours are stable. The lungs are unchanged with some possible mild bibasilar edema. There is no obvious new or worsening infiltrate. There is no increasing pleural effusion. Osseous structures are similar. Impression: No gross overall change. Cardiomegaly and probable CHF. Shallow breath PROCEDURE INTERPRETED AT [facility] DEPARTMENT OF RADIOLOGY Final Report Signed by: Dr. Marcelina Iglesias
--- NOTE | 2016-06-10 07:37 | EKG Report ---
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
--- NOTE | 2016-06-10 07:51 | Pulmonology Consult Note ---
Assessment and Plan (1) Cor pulmonale Status: Acute Assessment and plan: Patient has some peripheral edema. We do need to cautiously diurese her. Will use Lasix and Diamox Current Visit: Yes (2) Acute and chronic respiratory failure with hypercapnia Status: Acute Assessment and plan: PCO2 was 108. When she is at her baseline her PCO2 is in the 60s. Current Visit: No (3) Asthma Status: Acute Assessment and plan: She has severe asthma with remodeling changes. Does not sound tight at present. Current Visit: No (4) Unspecified sleep apnea Status: Acute Assessment and plan: She normally is on a trilogy AVAPS machine at home. We will get that for her at bedtime. She is not tolerating the facemask BiPAP here very well. I will also ask Dr. Keith to see. Current Visit: No History of Present Illness Chief complaint: Respiratory failure History of present illness: Ms. Welsh is a 60 year old female has asthma with remodeling changes. She has chronic hypercarbic respiratory failure. Also obstructive sleep apnea. She has been on a trilogy AVAPS device at home. She states that she uses it every night. She had a sleep study back in March indicating severe sleep apnea and hypoxemia despite treatment. Apparently she has had increased cough congestion upper respiratory infection for 3 or 4 days. Difficulty coughing up phlegm. She has not had fever or chills. She is not a smoker. She has a history of exposure to cotton fiber at work long ago. She was admitted last night and had a rapid response called and was moved to the CCU placed on BiPAP. She has had a previous stroke in 2007. She is pretty much wheelchair-bound. He has never been a smoker. Home Medications Medication Instructions Recorded Confirmed Type Montelukast Tab [Singulair Tab] 10 mg PO BEDTIME 03/30/16 06/09/16 History Albuterol Sulfate [Albuterol Neb] 0.63 mg RESP TX Q8H PRN #90 neb 04/09/1606/09 Rx Fluticasone/Vilanterol [Breo 1 puff INH DAILY #1 inhaler 04/09/16 06/09/16 Rx Ellipta 200-25 Mcg INH] Carvedilol [Coreg] 25 mg PO BID 06/09/16 06/09/16 History Furosemide Tab [Lasix Tab] 40 mg PO TID 06/09/16 06/09/16 History Lisinopril 40 mg PO BID 06/09/16 06/09/16 History Allergies Allergy/AdvReac Type Severity Reaction Status Date / Time No Known Allergies Allergy Unverified 03/30/16 09:17 ROS unobtainable: due to mental status (She is somewhat confused and quite short of breath difficult to answer questions) 12 point system: reviewed and no additional remarkable complaints except as stated - Cardiovascular Cardiovascular: Present: dyspnea, dyspnea on exertion, edema - Respiratory Respiratory: Present: cough, dyspnea, dyspnea on exertion Exam (Pulmonay) H&P - Constitutional Vitals: Period Temp Pulse Resp BP Sys/Richards Pulse Ox Last 24 Hr 98.1 F-98.7 F 62-91 20-38 115-200/71-124 89-99 Exam: Patient responsive. Vital signs normal. Oxygen saturation 97% on the BiPAP mask. Pupils react to light neck is supple no bruits. Chest shows a few rhonchi equal breath sounds is not tight. Heart normal rate and rhythm no murmurs. Abdomen soft nontender no masses. Extremities no clubbing or cyanosis. She has 1+ peripheral edema. Medical,Surgical,& Family Hx - Medical History Cardio: History of: Cerebrovascular Disease, CHF, Hypertension Neurology: History of: Cerebrovascular Accident (2007) Respiratory: History of: Asthma, COPD, Respiratory Problems ("lung disease") Gastrointestinal: History of: GERD - Surgical History Neurologic Surgeries: Patient denies: Neurologic Surgery Reproductive Surgeries: Surgical HX of;: Hysterectomy - Family History Family History: Reports;: Family Diabetes, Family Heart Disease, Family Hypertension - Social History Smoking Status: Never smoker Frequency of Alcohol Use: None Type of Drug Use: None Results - Labs CBC & BMP: 06/09/16 17:15 06/10/16 03:50 Lab Results: I have reviewed the past 24 hour labs - Diagnostic Findings Procedure: Chest x-ray: image reviewed by me (Cardiomegaly, lungs are clear.)
[2016-06-10] MEDS ORDERED: MAGNESIUM SULF RIDER 2 GM in PREMIX 1 EACH IV ONE (08:31)
--- NOTE | 2016-06-10 08:34 | Hospitalist Progress Note ---
Assessment and Plan (1) Respiratory failure Status: Acute Assessment and plan: The patient is admitted to the hospital yesterday for worsening of chronic hypercarbic respiratory failure. The patient will continue observation in the critical care area for respiratory support with available equipment. We do not have volume-cycled noninvasive equipment available at this time; we have asked her family to bring her machine from home. We will continue recommendations of Dr. Godfrey and I coordinated care with him today. The patient will be treated with beta agonist nebulized breathing therapy and diuretic. We will give her IV antibiotic with Levaquin and recheck electrolytes in the morning. Potassium will be repleted. Magnesium will be repleted Current Visit: No Qualifiers: Chronicity: acute on chronic Respiratory failure complication: hypoxia and hypercapnia Qualified Code(s): J96.21 - Acute and chronic respiratory failure with hypoxia; J96.22 - Acute and chronic respiratory failure with hypercapnia (2) Hypercarbia Status: Acute Current Visit: Yes (3) Congestive heart failure with cardiomyopathy Status: Acute Current Visit: No (4) Acute and chronic respiratory failure with hypercapnia Status: Acute Current Visit: No (5) Acute diastolic CHF (congestive heart failure) Status: Acute Current Visit: No Hospitalist: Subjective Interval history: The patient is more alert today. She does not complain of shortness of breath or angina. The patient had worsening CO2 retention last evening and required transfer to critical care area. I coordinated care with Dr. Godfrey today. He confirmed his opinion that she has a central respiratory insufficiency which leads to CO2 retention. She appears to have improved with BiPAP where on previous occasions BiPAP did not help. He believes that she has some asthma exacerbation with cor pulmonale worsening her condition and likely worsened by nonadherence to trilogy machine at home for medications. Blood pressure is seem to be improved today after restarting her home regimen. Exam - Constitutional Vitals: Period Temp Pulse Resp BP Sys/Rihcards Pulse Ox Last 24 Hr 98.1 F-98.7 F 62-91 20-38 115-200/71-124 89-99 Exam: Constitutional System: Mild distress. No tremulousness. The patient has less slurring of speech than yesterday. The patient does not appear drowsy Head: Normocephalic, atraumatic. Ears, Nose and Throat System: No evidence of Otitis or Mastoiditis. No epistaxis or discharge Eyes System: Pupils equal, round, and reactive. Extraocular muscles intact. Neck: Supple, without adenopathy, 1+ jugular venous distention. No thyromegaly , neck mass, or prior surgery apparent. Respiratory System: Chest moderate air trapping with mild upper airway congestion to auscultation. Cardiovascular System: Heart with regular rate and rhythm. No murmur. GI System: Abdomen soft, nontender. Normo active bowel sounds present. Musculoskeletal System: limbs with 1+ pedal edema. Full distal pulses. Neurological System: No discernable sensory deficit. No aphasia Psychiatric System: Conversation is fluent Results - Labs CBC & BMP: 06/09/16 17:15 06/10/16 03:50 Lab Results: I have reviewed the past 24 hour labs Labs: Arterial blood gas shows pH 7.33 and PCO2 108.
[2016-06-10] MEDS ORDERED: FUROSEMIDE 100 MG/10 ML VIAL ONE (08:51)
[2016-06-10] MEDS ORDERED: NON-FORMULARY MEDICATION (Fluticasone/Vilanterol [Breo Ellipta 200-25 Mcg Inh] 1 PUFF) INH SCH (09:00)
--- NOTE | 2016-06-10 09:08 | EKG Report ---
Stationary ECG Study [facility] Test Date: 06/09/2016 10:33:59 PM Pat Name: TAMARA CLARK Department: Room: 127 Gender: F [employer] Operator: : 1955 Requested by: Mandeep Trejo Order Number: [id number] Reading MD: ARNULFO ALMENDAREZ Intervals [place] Rate: 75 P: 54 TN: 172 QRS: 6 QRSD: 98 T: 67 QT: 348 QTc: 377 Interpretive Statements SINUS RHYTHM WITH OCCASIONAL SUPRAVENTRICULAR PREMATURE COMPLEXES LEFT ATRIAL ABNORMALITY Electronically Signed On 06-10-16 15:59:42 CDT by ARNULFO ALMENDAREZ [email or web address]
[2016-06-10] MEDS: CARVEDILOL 25 MG TABLET PO SCH ×2 (09:17→20:43)
[2016-06-10] MEDS: PANTOPRAZOLE 40 MG TABLET PO SCH (09:17)
[2016-06-10] MEDS: LISINOPRIL 20 MG TABLET PO SCH ×2 (09:17→20:43)
[2016-06-10] MEDS: methylPREDNISolone SOD SUC 40 MG/1 ML VIAL IV SCH ×2 (09:18→20:41)
[2016-06-10 09:21] LABS: Pt O2 Delivery Device BIPAP
[2016-06-10 09:24] LABS: ABG Base Excess 24.9 MMOL/L (-2.5-2.5); ABG Oxygen Saturation 85.1 % (95-100); ABG PH 7.436 (7.35-7.45); ABG PO2 49.3 MM HG (80-95)
[2016-06-10] MEDS: FUROSEMIDE 40 MG/4 ML VIAL IV SCH ×2 (09:25→15:27)
[2016-06-10] MEDS: AMINOPHYLLINE 500 MG in SODIUM CHLORIDE 0.9% 480 ML IV SCH (10:46)
--- NOTE | 2016-06-10 13:30 | Sleep Medicine Consult ---
Assessment and Plan (1) Obstructive sleep apnea Status: Acute Assessment and plan: We will check and see what her compliance is been like with the trilogy device. If this is not been successful in that the patient is not going use it, I would discontinue this. We can bring her in for formal titration with CPAP for her obstructive sleep apnea or BiPAP if needed. Will follow up on results. Current Visit: Yes History of Present Illness Chief complaint: Sleep apnea History of present illness: Ms. Welsh is a 60 year old female known to me from previous sleep evaluation when she was hospitalized earlier this year for respiratory failure. She did have mild obstructive sleep apnea by previous sleep study with diagnostic AHI of 13.5 but she did have some severe O2 desaturation to lows of 62% and had severe sleep related hypoxia. She has never been a smoker and was prescribed a trilogy device for chronic respiratory failure associated with COPD. She never returned for CPAP titration since she was placed on a trilogy device through [facility]. She does state that she uses it nightly. She was admitted for lower extremity swelling. The patient did suggest that she is unable to maintain the payments monthly for her trilogy device and may give it up. There is some question about her reliability on compliance and I have contacted [employer] to check her modem and ascertain degree of compliance. Home Medications Medication Instructions Recorded Confirmed Type Montelukast Tab [Singulair Tab] 10 mg PO BEDTIME 03/30/16 06/09/16 History Albuterol Sulfate [Albuterol Neb] 0.63 mg RESP TX Q8H PRN #90 neb 04/09/1606/09 Rx Fluticasone/Vilanterol [Breo 1 puff INH DAILY #1 inhaler 04/09/16 06/09/16 Rx Ellipta 200-25 Mcg INH] Carvedilol [Coreg] 25 mg PO BID 06/09/16 06/09/16 History Furosemide Tab [Lasix Tab] 40 mg PO TID 06/09/16 06/09/16 History Lisinopril 40 mg PO BID 06/09/16 06/09/16 History Allergies Allergy/AdvReac Type Severity Reaction Status Date / Time No Known Allergies Allergy Unverified 03/30/16 09:17 Review of systems: Notable for lower extremity swelling and dyspnea on exertion. Exam (Pulmonay) H&P - Constitutional Vitals: Period Temp Pulse Resp BP Sys/Richards Pulse Ox Last 24 Hr 98.1 F-98.7 F 62-91 20-38 115-200/71-124 89-99 Exam: She is alert and responsive in no acute distress. Pupils equal round reactive to light and accommodation. Extraocular movements intact. Oropharynx with class III Mallampati exam. Neck supple without adenopathy. No supraclavicular adenopathy. Chest with fair air movement without significant wheeze, rhonchi, or rales. Cardiac exam reveals a regular rhythm without murmur or gallop. Abdomen soft nontender extremities with trace edema. Neurologically, she is grossly intact. She moves all extremities with good strength. Medical,Surgical,& Family Hx - Medical History Cardio: History of: Cerebrovascular Disease, CHF, Hypertension Neurology: History of: Cerebrovascular Accident (2007) Respiratory: History of: Asthma, COPD, Respiratory Problems ("lung disease") Gastrointestinal: History of: GERD - Surgical History Neurologic Surgeries: Patient denies: Neurologic Surgery Reproductive Surgeries: Surgical HX of;: Hysterectomy - Family History Family History: Reports;: Family Diabetes, Family Heart Disease, Family Hypertension - Social History Smoking Status: Never smoker Frequency of Alcohol Use: None Type of Drug Use: None Results - Labs CBC & BMP: 06/09/16 17:15 06/10/16 03:50 Lab Results: I have reviewed the past 24 hour labs Labs: Severe CO2 retention with PCO2 over 100 on admission. This has improved since hospitalization.
--- NOTE | 2016-06-10 15:28 | ECHO Report ---
Kathy Welsh Exam Date: 06/10/2016 09:52 Referring Physician: Technologist: Lilly Escalante RDCS Age: 60 Ht (in): 60 Wt (lb): 195 Gender: F Exam Location: [facility] Echo Indications: Cor pulmonale, Acute and chronic respiratory failure with hypercapnia, Asthma, VINH, Edema, unspecified, Shortness of breath, Essential (primary) hypertension BP: 147 / 90 HR: 63 Rhythm: Sinus Technical Quality: Average IMPRESSIONS Left ventricular ejection fraction is estimated at 55 %. Grade I diastolic dysfunction. Moderate concentric left ventricular hypertrophy. Aortic valve is mildly calcified and the leaflets are mildly calcified with good trileaflet excursion. Tricuspid regurgitation velocities suggest a RVSP of 38 mmHg plus the right atrial pressure. The right atrium and ventricle are enlarged MEASUREMENTS (Male / Female) Normal Values 2D ECHO LV Diastolic Diameter PLAX 4.6 cm 4.2 - 5.9 / 3.9 - 5.3 cm LV Systolic Diameter PLAX 3.4 cm LV Fractional Shortening PLAX 26.5 % IVS Diastolic Thickness 1.5 cm 0.6 - 1.0 / 0.6 - 0.9 cm LVPW Diastolic Thickness 1.5 cm 0.6 - 1.0 / 0.6 - 0.9 cm RV Internal Dim ED PLAX 3.5 cm Aortic Root Diameter 3.4 cm LA Systolic Diameter LX 5.3 cm 3.0 - 4.0 / 2.7 - 3.8 cm DOPPLER TR Peak Velocity 308.0 cm/s TR Peak Gradient 37.9 mmHg FINDINGS Left Ventricle Normal left ventricular cavity size. Moderate concentric left ventricular hypertrophy. Left ventricular ejection fraction is estimated at 55 %. Grade I diastolic dysfunction. Right Ventricle The right ventricle is slightly enlarged Right Atrium Moderately increased right atrial size. Left Atrium Moderately increased left atrial size. Mitral Valve Mild mitral annular and leaflet calcification with mild mitral regurgitation. Aortic Valve Aortic valve is mildly calcified and the leaflets are mildly calcified with good trileaflet excursion. The peak velocity across the valve is 2.44 m/sec and has a VTI of 50.4 The LVOT VTI is 26.8 with a MOODY estimated at 2 cm2 There is no AI Tricuspid Valve Morphologically normal tricuspid valve. Trace to mild tricuspid valve regurgitation. Tricuspid regurgitation velocities suggest a RVSP of 38 mmHg plus the right atrial pressure. TR V max is 3.08 m/sec. Pulmonic Valve Morphologically normal pulmonic valve without significant stenosis. There is no pulmonic regurgitation. Pericardium Normal pericardium without effusion. Aorta Normal ascending aorta dimension. Cindy Osullivan (Electronically Signed) Final Date: 10 Jun 2016 15:27
[2016-06-10] MEDS: MONTELUKAST 10 MG TABLET PO SCH (20:43)
[2016-06-10] MEDS: LEVOFLOXACIN INJ 500 MG in PREMIX 1 EACH IV SCH (21:37)
[2016-06-10] MEDS: ENOXAPARIN 40 MG/0.4 ML SYRINGE SUBCUT SCH (21:37)
[2016-06-11] MEDS: ALBUTEROL/IPRATROPIUM 3 ML NEB RESP TX SCH ×4 (01:33→19:14)
[2016-06-11] MEDS: POTASSIUM CHLORIDE 20 MEQ TABLET PO SCH ×3 (01:49→13:45)
[2016-06-11 04:58] LABS: Basophils % 0.2 % (0.0-0.8); Hematocrit 39.5 VOL% (35.7-47.0); Hemoglobin 12.1 GM/DL (12.0-16.0); Immature Granulocytes % 0.5 %; Immature Granulocytes Absolute 0.06 #; Lymphocytes % 8.7 % (21.3-54.2); Mean Corpuscular HGB Conc 30.6 GM/DL (32-36); Mean Corpuscular Hemoglobin 30 PG (27-34); Mean Corpuscular Volume 97.8 FL (87-102); Mean Platelet Volume 11.4 FL (9.6-12.0); Monocytes # 0.1 10*3/uL (0.11-0.8); Neutrophils # 9.8 10*3/uL (1.4-7.4); Neutrophils % 89.6 % (38.7-73.9); Platelet Count 194 T/CUMM (130-400); Red Blood Count 4.04 MC/CUMM (3.8-5.5); Red Cell Distribution Width 14.9 % (9.3-17.3); White Blood Count 10.9 T/CUMM (4-12)
[2016-06-11 05:13] LABS: ABG Base Excess 14.6 MMOL/L (-2.5-2.5); ABG HCO3 38.3 MMOL/L (20-26); ABG Oxygen Saturation 87.2 % (95-100); ABG PO2 56.6 MM HG (80-95); ABG TCO2 39.2 MMOL/L (23-27); Pt O2 Delivery Device Ventilator
[2016-06-11 05:31] LABS: Calcium 9.2 MG/DL (8.5-10.1); Magnesium 2.1 MG/DL (1.8-2.4); Osmolality,Calculated 280.7 MOS/KG (273-304); Potassium 3.7 MMOL/L (3.5-5.1)
[2016-06-11 05:57] LABS: ABG PCO2 76.5 MM HG (35-48)
--- NOTE | 2016-06-11 07:15 | Pulmonology Progress Note ---
Pulmonary - PN: Subj Interval history: This 60-year-old white female came in with acute on chronic respiratory failure. She has hypercarbia at her baseline. She has obstructive sleep apnea. Also has chronic asthma with remodeling changes. Certainly she has a central component to her hypoventilation. This would fit with obesity hypoventilation syndrome although she is nonobese to the point that I would expect that in her. In any rate she is in with an acute exacerbation and she is improved today. She is using her AVAPS machine at night here. Doing well with nasal biprong during the day. Her PCO2 is come down into the 70s. Baseline for her is probably between 65 and 70. She could be moved to the floor today. Exam (Progress Note) - Constitutional Vitals: Period Temp Pulse Resp BP Sys/Richards Pulse Ox Last 24 Hr 97.2 F-99.1 F 58-93 17-24 127-189/70-105 87-100 Exam: Vital signs normal. Patient's alert. Pupils react to light. Nasal oxygen in place. Neck is supple. Chest reveals a few rhonchi equal breath sounds. Heart normal rate rhythm no murmurs. Abdomen soft nontender no masses. Extremities no clubbing cyanosis or edema. Calves nontender. Results - Labs CBC & BMP: 06/11/16 03:34 06/11/16 03:34 Lab Results: I have reviewed the past 24 hour labs - Diagnostic Findings Procedure: Chest x-ray: image reviewed by me (Cardiomegaly. No julissa infiltrates.) Assessment and Plan (1) Cor pulmonale Status: Acute Assessment and plan: Patient has some peripheral edema. We do need to cautiously diurese her. Will use Lasix and Diamox 06/11/16 peripheral edema has decreased. Watch renal function and bicarb levels. Current Visit: Yes (2) Acute and chronic respiratory failure with hypercapnia Status: Acute Assessment and plan: PCO2 was 108. When she is at her baseline her PCO2 is in the 60s. 06/11/2016 PCO2 in the mid 70s now. Current Visit: No (3) Asthma Status: Acute Assessment and plan: She has severe asthma with remodeling changes. Does not sound tight at present. 06/11/2016 improved with treatment. Will reduce steroids. Current Visit: No (4) Unspecified sleep apnea Status: Acute Assessment and plan: She normally is on a trilogy AVAPS machine at home. We will get that for her at bedtime. She is not tolerating the facemask BiPAP here very well. I will also ask Dr. Keith to see. 06/11/2016 she has obstructive sleep apnea. May be a central component or a component of obesity hypoventilation syndrome but at any rate she has chronic respiratory failure as well. Current Visit: No
--- NOTE | 2016-06-11 07:59 | XRay Report ---
Referring Physician: Patricio Fofana Exam: XR chest 1V portable Date: June 11, 2016 at 3:33 AM Reason: Respiratory failure Comparison: Chest one view portable June 10, 2016 Findings: The cardiac silhouette is again enlarged. The interstitial markings are slightly prominent, which could reflect minimal pulmonary edema. No pneumothorax is identified, but there may be minimal bilateral pleural fluid. The osseous structures appear stable. Impression: There has been no significant change. PROCEDURE INTERPRETED AT [facility] DEPARTMENT OF RADIOLOGY Final Report Signed by: Dr. Lor Avila
[2016-06-11] MEDS: FUROSEMIDE 40 MG/4 ML VIAL IV SCH ×2 (08:11→16:48)
[2016-06-11] MEDS: LISINOPRIL 20 MG TABLET PO SCH ×2 (08:12→21:41)
[2016-06-11] MEDS: CARVEDILOL 25 MG TABLET PO SCH ×2 (08:12→21:41)
[2016-06-11] MEDS: PANTOPRAZOLE 40 MG TABLET PO SCH (08:12)
[2016-06-11] MEDS: methylPREDNISolone SOD SUC 40 MG/1 ML VIAL IV SCH ×2 (08:12→21:29)
--- NOTE | 2016-06-11 09:01 | Hospitalist Progress Note ---
Assessment and Plan (1) Respiratory failure Status: Acute Assessment and plan: The patient is admitted to the hospital yesterday for worsening of chronic hypercarbic respiratory failure. The patient is improved and ready for transfer to telemetry monitoring. We will continue present antihypertensive regimen and diuresis. She will likely be ready for transition to oral diuretic tomorrow. I am going to continue potassium repletion. Magnesium is normal today. Current Visit: No Qualifiers: Chronicity: acute on chronic Respiratory failure complication: hypoxia and hypercapnia Qualified Code(s): J96.21 - Acute and chronic respiratory failure with hypoxia; J96.22 - Acute and chronic respiratory failure with hypercapnia (2) Hypercarbia Status: Acute Current Visit: Yes (3) Congestive heart failure with cardiomyopathy Status: Acute Current Visit: No (4) Acute and chronic respiratory failure with hypercapnia Status: Acute Current Visit: No (5) Acute diastolic CHF (congestive heart failure) Status: Acute Current Visit: No Hospitalist: Subjective Interval history: The patient is awake and alert this morning she is oriented. The patient is ready for transfer to telemetry. The patient has no complaint of angina or palpitations. Exam - Constitutional Vitals: Period Temp Pulse Resp BP Sys/Richards Pulse Ox Last 24 Hr 97.2 F-99.1 F 58-93 16-24 127-189/70-105 87-100 Exam: Constitutional System: No distress. No tremulousness. The patient does not appear drowsy. Speech no longer slurred Head: Normocephalic, atraumatic. Ears, Nose and Throat System: No evidence of Otitis or Mastoiditis. No epistaxis or discharge Eyes System: Pupils equal, round, and reactive. Extraocular muscles intact. Neck: Supple, without adenopathy, trace jugular venous distention. No thyromegaly, neck mass, or prior surgery apparent. Respiratory System: Chest moderate air trapping with mild upper airway congestion to auscultation. Cardiovascular System: Heart with regular rate and rhythm. No murmur. GI System: Abdomen soft, nontender. Normo active bowel sounds present. Musculoskeletal System: limbs with trace pedal edema. Full distal pulses. Neurological System: No discernable sensory deficit. No aphasia Psychiatric System: Conversation is fluent Results - Labs CBC & BMP: 06/11/16 03:34 06/11/16 03:34 Lab Results: I have reviewed the past 24 hour labs
[2016-06-11] MEDS: AMINOPHYLLINE 500 MG in SODIUM CHLORIDE 0.9% 480 ML IV SCH (09:20)
--- NOTE | 2016-06-11 12:27 | Sleep Medicine Progress Note ---
Assessment and Plan (1) Obstructive sleep apnea Status: Acute Assessment and plan: Would continue present therapy with trilogy respirator/AVAPs. Call if needed. Current Visit: Yes Sleep Medicine Subjective Interval history: Patient appears to be doing much better today. She did get her a VATS machine back. I told the nurses that we can get a download from that to find out her compliance. They will contact your drugs. She apparently has a modem with that that allows compliance check. I stressed the importance of compliance nightly with her given the severity of her chronic respiratory failure with concurrent obstructive sleep apnea. Exam (Progress Note) - Constitutional Vitals: Period Temp Pulse Resp BP Sys/Richards Pulse Ox Last 24 Hr 97.2 F-98.3 F 58-93 16-24 127-189/70-101 90-100 Exam: She is alert and responsive in no acute distress. Chest with good air movement and no significant wheeze rhonchi. Cardiac exam reveals a regular rhythm without murmur gallop. Abdomen soft nontender extremities without increased edema. Results - Labs CBC & BMP: 06/11/16 03:34 06/11/16 03:34 Lab Results: I have reviewed the past 24 hour labs Labs: ABGs are much better. PCO2 is decreased from 107-76.
[2016-06-11] MEDS: LEVOFLOXACIN INJ 500 MG in PREMIX 1 EACH IV SCH (21:38)
[2016-06-11] MEDS: MONTELUKAST 10 MG TABLET PO SCH (21:41)
[2016-06-11] MEDS: ENOXAPARIN 40 MG/0.4 ML SYRINGE SUBCUT SCH (21:42)
[2016-06-12] MEDS: ALBUTEROL/IPRATROPIUM 3 ML NEB RESP TX SCH ×4 (00:58→19:59)
[2016-06-12 02:15] LABS: ABG Base Excess 12.3 MMOL/L (-2.5-2.5); ABG HCO3 35.6 MMOL/L (20-26); ABG Oxygen Saturation 77.5 % (95-100); ABG PH 7.372 (7.35-7.45); ABG PO2 45.6 MM HG (80-95); ABG TCO2 36.5 MMOL/L (23-27); Allen Test Positive; Pt O2 Delivery Device BIPAP
[2016-06-12 02:17] LABS: ABG PCO2 71.2 MM HG (35-48)
[2016-06-12 04:51] LABS: Basophils % 0.1 % (0.0-0.8); Hematocrit 41.4 VOL% (35.7-47.0); Hemoglobin 12.5 GM/DL (12.0-16.0); Immature Granulocytes % 0.5 %; Immature Granulocytes Absolute 0.07 #; Lymphocytes # 1.1 10*3/uL (1.4-4.0); Lymphocytes % 7.7 % (21.3-54.2); Mean Corpuscular HGB Conc 30.2 GM/DL (32-36); Mean Corpuscular Hemoglobin 29 PG (27-34); Mean Platelet Volume 11.3 FL (9.6-12.0); Monocytes # 0.2 10*3/uL (0.11-0.8); Monocytes % 1.5 % (1.7-12.7); Neutrophils % 90.2 % (38.7-73.9); Platelet Count 205 T/CUMM (130-400); Red Blood Count 4.27 MC/CUMM (3.8-5.5); Red Cell Distribution Width 15.3 % (9.3-17.3); White Blood Count 14.4 T/CUMM (4-12)
[2016-06-12 05:20] LABS: Calcium 8.7 MG/DL (8.5-10.1); Magnesium 2.1 MG/DL (1.8-2.4); Osmolality,Calculated 289.5 MOS/KG (273-304); Potassium 3.9 MMOL/L (3.5-5.1)
[2016-06-12] MEDS: AMINOPHYLLINE 500 MG in SODIUM CHLORIDE 0.9% 480 ML IV SCH (05:56)
--- NOTE | 2016-06-12 07:20 | Pulmonology Progress Note ---
Pulmonary - PN: Subj Interval history: This 60-year-old white female came in with acute on chronic respiratory failure. She has hypercarbia at her baseline. She has obstructive sleep apnea. Also has chronic asthma with remodeling changes. Certainly she has a central component to her hypoventilation. This would fit with obesity hypoventilation syndrome although she is nonobese to the point that I would expect that in her. In any rate she is in with an acute exacerbation and she is improved today. She is using her AVAPS machine at night here. Doing well with nasal biprong during the day. Her PCO2 is come down into the 70s. Baseline for her is probably between 65 and 70. She could be moved to the floor today. 06/12/2016 patient now on telemetry unit. Feeling better. Using her AVAPS at night. On further discussion, patient says she uses it some nights at home. I emphasized the importance of using it every night. She is improved. We can start tapering her medicines. Exam (Progress Note) - Constitutional Vitals: Period Temp Pulse Resp BP Sys/Richards Pulse Ox Last 24 Hr 96.8 F-98.2 F 62-78 18-22 107-153/59-89 95-100 Exam: Vital signs normal. Patient's alert. Pupils react to light. Nasal oxygen in place. Neck is supple. Chest reveals a few rhonchi equal breath sounds. Heart normal rate rhythm no murmurs. Abdomen soft nontender no masses. Extremities no clubbing cyanosis or edema. Calves nontender. Little change from yesterday. Results - Labs CBC & BMP: 06/12/16 04:17 06/12/16 04:17 Lab Results: I have reviewed the past 24 hour labs Assessment and Plan (1) Cor pulmonale Status: Acute Assessment and plan: Patient has some peripheral edema. We do need to cautiously diurese her. Will use Lasix and Diamox 06/11/16 peripheral edema has decreased. Watch renal function and bicarb levels. 06/12/2016 again peripheral edema has decreased. Current Visit: Yes (2) Acute and chronic respiratory failure with hypercapnia Status: Acute Assessment and plan: PCO2 was 108. When she is at her baseline her PCO2 is in the 60s. 06/11/2016 PCO2 in the mid 70s now. 06/12/2016 she is almost back to her baseline. Again very important for her to use her noninvasive mechanical ventilation at night. Current Visit: No (3) Asthma Status: Acute Assessment and plan: She has severe asthma with remodeling changes. Does not sound tight at present. 06/11/2016 improved with treatment. Will reduce steroids. 06/12/2016 tapering steroids further. Current Visit: No (4) Unspecified sleep apnea Status: Acute Assessment and plan: She normally is on a trilogy AVAPS machine at home. We will get that for her at bedtime. She is not tolerating the facemask BiPAP here very well. I will also ask Dr. Keith to see. 06/11/2016 she has obstructive sleep apnea. May be a central component or a component of obesity hypoventilation syndrome but at any rate she has chronic respiratory failure as well. 06/12/2016 she has very severe obstructive sleep apnea. Current Visit: No
[2016-06-12] MEDS: FUROSEMIDE 40 MG/4 ML VIAL IV SCH (08:35)
[2016-06-12] MEDS: acetaZOLAMIDE 250 MG TABLET PO SCH ×2 (09:38→22:19)
[2016-06-12] MEDS: THEOPHYLLINE ER (24 HR) 300 MG CAPSULE PO SCH (09:38)
[2016-06-12] MEDS: PANTOPRAZOLE 40 MG TABLET PO SCH (09:39)
[2016-06-12] MEDS: CARVEDILOL 25 MG TABLET PO SCH ×2 (09:39→22:21)
[2016-06-12] MEDS: LISINOPRIL 20 MG TABLET PO SCH ×2 (09:39→22:22)
[2016-06-12] MEDS: predniSONE 20 MG TABLET PO SCH (09:39)
--- NOTE | 2016-06-12 14:43 | Hospitalist Progress Note ---
Assessment and Plan (1) Respiratory failure Status: Acute Assessment and plan: The patient is admitted to the hospital yesterday for worsening of chronic hypercarbic respiratory failure. The patient continues to improve on telemetry floor. We will continue present antihypertensive regimen and diuresis. We will transition to oral diuretic today. I am going to continue potassium repletion. Magnesium is normal today. Current Visit: No Qualifiers: Chronicity: acute on chronic Respiratory failure complication: hypoxia and hypercapnia Qualified Code(s): J96.21 - Acute and chronic respiratory failure with hypoxia; J96.22 - Acute and chronic respiratory failure with hypercapnia (2) Hypercarbia Status: Acute Current Visit: Yes (3) Congestive heart failure with cardiomyopathy Status: Acute Current Visit: No (4) Acute and chronic respiratory failure with hypercapnia Status: Acute Current Visit: No (5) Acute diastolic CHF (congestive heart failure) Status: Acute Current Visit: No Hospitalist: Subjective Interval history: The patient has less shortness of breath today. She is awake alert and no longer has lethargy. The patient has good diuresis at present Exam - Constitutional Vitals: Period Temp Pulse Resp BP Sys/Richards Pulse Ox Last 24 Hr 96.8 F-99.2 F 57-78 18-21 107-145/59-89 85-100 Exam: Constitutional System: No distress. No tremulousness. The patient does not appear drowsy. Speech no longer slurred Head: Normocephalic, atraumatic. Ears, Nose and Throat System: No evidence of Otitis or Mastoiditis. No epistaxis or discharge Eyes System: Pupils equal, round, and reactive. Extraocular muscles intact. Neck: Supple, without adenopathy, trace jugular venous distention. No thyromegaly, neck mass, or prior surgery apparent. Respiratory System: Chest mild air trapping with minimal upper airway congestion to auscultation. Cardiovascular System: Heart with regular rate and rhythm. No murmur. GI System: Abdomen soft, nontender. Normo active bowel sounds present. Musculoskeletal System: limbs with trace pedal edema. Full distal pulses. Neurological System: No discernable sensory deficit. No aphasia Psychiatric System: Conversation is fluent Results - Labs CBC & BMP: 06/12/16 04:17 06/12/16 04:17 Lab Results: I have reviewed the past 24 hour labs
[2016-06-12] MEDS: FUROSEMIDE 80 MG TABLET PO SCH (15:49)
[2016-06-12] MEDS: LEVOFLOXACIN INJ 500 MG in PREMIX 1 EACH IV SCH (22:12)
[2016-06-12] MEDS: ENOXAPARIN 40 MG/0.4 ML SYRINGE SUBCUT SCH (22:18)
[2016-06-12] MEDS: MONTELUKAST 10 MG TABLET PO SCH (22:22)
[2016-06-13] MEDS: ALBUTEROL/IPRATROPIUM 3 ML NEB RESP TX SCH ×2 (00:29→06:47)
[2016-06-13 05:58] LABS: Calcium 8.8 MG/DL (8.5-10.1); Magnesium 2.1 MG/DL (1.8-2.4); Osmolality,Calculated 286.4 MOS/KG (273-304); Potassium 3.2 MMOL/L (3.5-5.1)
--- NOTE | 2016-06-13 08:36 | Pulmonology Progress Note ---
Pulmonary - PN: Subj Interval history: This 60-year-old white female came in with acute on chronic respiratory failure. She has hypercarbia at her baseline. She has obstructive sleep apnea. Also has chronic asthma with remodeling changes. Certainly she has a central component to her hypoventilation. This would fit with obesity hypoventilation syndrome although she is nonobese to the point that I would expect that in her. In any rate she is in with an acute exacerbation and she is improved today. She is using her AVAPS machine at night here. Doing well with nasal biprong during the day. Her PCO2 is come down into the 70s. Baseline for her is probably between 65 and 70. She could be moved to the floor today. 06/12/2016 patient now on telemetry unit. Feeling better. Using her AVAPS at night. On further discussion, patient says she uses it some nights at home. I emphasized the importance of using it every night. She is improved. We can start tapering her medicines. 06/13/2016 patient looks good. She is using her AVAPS machine at night here. I was sent a print out of her use of it at home and she has used it only a couple of hours out of the last month. I discussed this with her. She assures me that she will be using it regularly now. She says that her mouth gets very dry with it. She does not know about humidification system. Will ask someone to show her that and how to maintain it. That should help with the dry mouth. From my standpoint she can be discharged taking Levaquin for about 5 more days. Prednisone 40 mg daily for about 5 more days and then stop. Would decrease Diamox to once a day. Keep on oral theophylline. She has an appointment to see me next month already. Exam (Progress Note) - Constitutional Vitals: Period Temp Pulse Resp BP Sys/Richards Pulse Ox Last 24 Hr 97.4 F-99.2 F 54-73 17-22 112-158/56-85 93-99 Exam: Vital signs normal. Patient's alert. Pupils react to light. Nasal oxygen in place. Neck is supple. Chest reveals clear and equal breath sounds. Heart normal rate rhythm no murmurs. Abdomen soft nontender no masses. Extremities no clubbing cyanosis or edema. Calves nontender. Results - Labs CBC & BMP: 06/12/16 04:17 06/13/16 04:59 Lab Results: I have reviewed the past 24 hour labs Assessment and Plan (1) Cor pulmonale Status: Acute Assessment and plan: Patient has some peripheral edema. We do need to cautiously diurese her. Will use Lasix and Diamox 06/11/16 peripheral edema has decreased. Watch renal function and bicarb levels. 06/12/2016 again peripheral edema has decreased. 06/13/2016 edema has subsided. Needs treatment with noninvasive mechanical ventilation at home as previously prescribed. She was not being compliant with it but promises to be compliant now. Needs low-dose Diamox. Oral theophylline. I will follow-up closely in the office. Current Visit: Yes (2) Acute and chronic respiratory failure with hypercapnia Status: Acute Assessment and plan: PCO2 was 108. When she is at her baseline her PCO2 is in the 60s. 06/11/2016 PCO2 in the mid 70s now. 06/12/2016 she is almost back to her baseline. Again very important for her to use her noninvasive mechanical ventilation at night. 06/13/2016 this is due to obesity hypoventilation syndrome apparently along with asthma and obstructive sleep apnea. Current Visit: No (3) Asthma Status: Acute Assessment and plan: She has severe asthma with remodeling changes. Does not sound tight at present. 06/11/2016 improved with treatment. Will reduce steroids. 06/12/2016 tapering steroids further. 06/13/2016 needs prednisone for 5 more days. Continue with controller inhaler at home. Current Visit: No (4) Unspecified sleep apnea Status: Acute Assessment and plan: She normally is on a trilogy AVAPS machine at home. We will get that for her at bedtime. She is not tolerating the facemask BiPAP here very well. I will also ask Dr. Keith to see. 06/11/2016 she has obstructive sleep apnea. May be a central component or a component of obesity hypoventilation syndrome but at any rate she has chronic respiratory failure as well. 06/12/2016 she has very severe obstructive sleep apnea. Current Visit: No
[2016-06-13] MEDS: predniSONE 20 MG TABLET PO SCH (09:52)
[2016-06-13] MEDS: LISINOPRIL 20 MG TABLET PO SCH (09:52)
[2016-06-13] MEDS: FUROSEMIDE 80 MG TABLET PO SCH (09:53)
[2016-06-13] MEDS: PANTOPRAZOLE 40 MG TABLET PO SCH (09:53)
[2016-06-13] MEDS: CARVEDILOL 25 MG TABLET PO SCH (09:53)
[2016-06-13] MEDS: acetaZOLAMIDE 250 MG TABLET PO SCH (09:53)
[2016-06-13] MEDS: THEOPHYLLINE ER (24 HR) 300 MG CAPSULE PO SCH (10:02)
--- NOTE | 2016-06-13 10:53 | Discharge Summary ---
Hospital Course - Hospital Course Hospital Course: The patient is admitted to the hospital with respiratory failure acute on chronic due to central sleep apnea and superimposed COPD acute exacerbation. The patient improved in the intensive care unit with BiPAP, antibiotics, steroids, and beta agonist nebulized breathing therapy. We had pulmonary and sleep medicine consultations. The patient improved dramatically over 5 days period of time as her blood pressure and breathing medications were reinforced. The patient is now ready for discharge home in improved condition. We have emphasized the importance of adherence to her medications and trilogy breathing machine nightly. The patient will follow up with Dr. Godfrey in the office. On the date of discharge, chest clear and extremities nearly devoid of edema. Total discharge [id number] time 38 minutes. - Time spent with patient Time with patient DS: Greater than 30 minutes Diagnosis - Discharge Diagnosis (1) Respiratory failure Status: Resolved (2) Hypercarbia Status: Chronic (3) Congestive heart failure with cardiomyopathy Status: Chronic (4) Acute and chronic respiratory failure with hypercapnia Status: Resolved (5) Acute diastolic CHF (congestive heart failure) Status: Resolved Discharge Plan - Discharge Data Disposition: Disch To Home/Self Care Condition at Discharge: Stable Discharge Diet: advance to your usual diet Activity: resume usual activities as tolerated - Discharge Medications New Furosemide Tab [Lasix Tab] 80 mg PO DAILY #60 tablet Levofloxacin Tab [Levaquin Tab] 500 mg PO DAILY #5 tablet Theophylline ER Cap (24 Hr) [Peter-24] 300 mg PO DAILY #90 capsule acetaZOLAMIDE TAB [Diamox Tab] 125 mg PO BID #90 tablet predniSONE TAB [PredniSONE] 40 mg PO DAILY #5 tablet Continue Fluticasone/Vilanterol [Breo Ellipta 200-25 Mcg INH] 1 puff INH DAILY #1 inhaler Albuterol Sulfate [Albuterol Neb] 0.63 mg RESP TX Q8H PRN #90 neb PRN Reason: Shortness Of Breath/Wheezing Carvedilol [Coreg] 25 mg PO BID #100 Lisinopril 40 mg PO BID #100 Montelukast Tab [Singulair Tab] 10 mg PO BEDTIME #60 Discontinued Furosemide Tab [Lasix Tab] 40 mg PO TID - Follow Up or Referral Follow Up: Rigo Godfrey MD [Physician] - 1 Month - Forms/Instructions Exam - Constitutional Vitals: Period Temp Pulse Resp BP Sys/Richards Pulse Ox Last 24 Hr 97.4 F-99.2 F 54-73 17- 112-158/56-85 93-99 Discharge Results Labs on day of discharge: Labs from last 24 hours 06/13/16 06/13/16 04:59 04:59 Sodium 140 Potassium 3.2 L Chloride 96 L Carbon Dioxide 39 H Anion Gap 8.2 BUN 32 H Creatinine 0.80 GFR Calculation 99 BUN/Creatinine Ratio 40.00 H Glucose 121 H Calculated Osmolality 286.4 Calcium 8.8 Magnesium 2.1 B-Natriuretic Peptide 42 DS: Provider Date of admission: 06/09/16 19:02 Primary care physician: . No PCP Attending physician on admission: Patricio Fofana MD Consults: 06/09/16 22:22 Consult to Physician [CONS] Routine Comment: COPD, cor pulmonale Consulting Provider: Rigo Godfrey 06/09/16 23:03 Consult to Pastoral Services [CONS] Routine Comment: Pastoral Screen: Request Field [employer]ipe Lines Supervisor Visit 06/10/16 07:59 Consult to Sleep Center [CONS] Routine Reason for Sleep Center: Sleep Center Physician Consult Comment: VINH, Chronic resp failure Discharging clinician: Patricio Fofana MD
[2016-06-13 12:08] VITALS: BP 110/56
== END 2016-06-13 12:50 | disposition home or self-care (01) | DRG 291 ==
LOC: N.ED 16:50 → N.EDINP 19:02 → N.TELES 19:34 → N.CC 22:40 → N.TELEN 06-11 10:38 → N.TELES 06-11 11:20
PROVIDERS: ADMIT Internal Medicine; ATTEND Internal Medicine

== ENCOUNTER 2019-01-19 20:43 | Inpatient (IN) ==
[2019-01-19] MEDS ORDERED: ONDANSETRON 4 MG/2 ML VIAL IV STA (21:12)
[2019-01-19] MEDS ORDERED: AZITHROMYCIN INJ 500 MG in SODIUM CHLORIDE 0.9% 250 ML IV STA (21:12)
[2019-01-19] MEDS ORDERED: MAGNESIUM SULF RIDER 2 GM in PREMIX 1 EACH IV STA (21:12)
[2019-01-19] MEDS ORDERED: cefTRIAXone 1,000 MG in SODIUM CHLORIDE 0.9% 100 ML IV STA (21:12)
[2019-01-19] MEDS ORDERED: methylPREDNISolone SOD SUC 125 MG/2 ML VIAL IV STA (21:12)
[2019-01-19] MEDS ORDERED: ALBUTEROL NEB SOLN 5 MG/ML 20 ML/BOTTLE RESP TX SCH (21:30)
[2019-01-19] MEDS ORDERED: hydrALAZINE 20 MG/1 ML VIAL IV STA (21:33)
[2019-01-19] MEDS ORDERED: hydrALAZINE 20 MG/1 ML VIAL ONE (21:34)
[2019-01-19] MEDS ORDERED: FUROSEMIDE 40 MG/4 ML VIAL IV STA (21:39)
[2019-01-19 21:40] LABS: Basophils # 0.1 10*3/uL (0.0-0.2); Basophils % 0.6 % (0.0-0.8); Eosinophils # 0.3 10*3/uL (0.0-0.87); Eosinophils % 2.5 % (0.00-10.9); Hematocrit 39.2 VOL% (35.7-47.0); Hemoglobin 12.3 GM/DL (12.0-16.0); Immature Granulocytes % 0.5 %; Immature Granulocytes Absolute 0.06 #; Lymphocytes # 1.7 10*3/uL (1.4-4.0); Mean Corpuscular HGB Conc 31.4 GM/DL (32-36); Mean Platelet Volume 10.5 FL (9.6-12.0); Monocytes % 6.8 % (1.7-12.7); Neutrophils % 74.6 % (38.7-73.9); Platelet Count 176 T/CUMM (130-400); Red Blood Count 4.17 MC/CUMM (3.8-5.5); White Blood Count 11.4 T/CUMM (4-12)
[2019-01-19 21:43] LABS: Apearance,Urine CLEAR (Clear); Bacteria,Urine Occasional /HPF (Few); Bilirubin,Urine Negative (Negative); Blood, Urine Negative (Negative); Glucose,Urine (UA) Negative (Negative); Hyaline Casts,Urine 1 /LPF (0-3); Ketones,Urine Negative (Negative); Nitrite,Urine Negative (Negative); Protein,Urine 100 MG/DL; RBC,Urine 1 /HPF (0-4); Squamous Epithelial Cell,Urine Occasional /HPF (0-10); Urine Color Yellow (Yellow); Urine Specific Gravity 1.015 (1.001-1.035); Urine Urobilinogen < 2.0 EU/DL (0.2-1.0); WBC,Urine 1 /HPF (0-6)
[2019-01-19 21:52] LABS: INR 1.1; PT Patient Result 11.7 SECS (9.6-12.2)
[2019-01-19 22:04] LABS: Alanine Aminotransferase 25 U/L (13-56); Albumin 3.4 G/DL (3.4-5.0); Alkaline Phosphatase 71 U/L (45-117); Aspartate Amino Transferase 26 U/L (0-37); Blood Urea Nitrogen 18 MG/DL (7-18); Calcium 9.3 MG/DL (8.5-10.1); Estimated Glom Filtration Rate 100 ML/MIN; Glucose 140 MG/DL (74-106); Osmolality,Calculated 280.5 MOS/KG (273-304); Total Protein 7.6 G/DL (6.4-8.3)
[2019-01-19] MEDS ORDERED: hydrALAZINE 20 MG/1 ML VIAL IV PRN (23:18)
[2019-01-19] MEDS ORDERED: diphenhydrAMINE CAP 25 MG CAPSULE PO PRN (23:18)
[2019-01-19] MEDS ORDERED: NICOTINE 21 MG/24 HR PATCH TRANSDERM PRN (23:18)
[2019-01-19] MEDS ORDERED: MORPHINE 4 MG/1 ML VIAL IV PRN (23:18)
[2019-01-19] MEDS ORDERED: BISACODYL 5 MG TABLET PO PRN (23:18)
[2019-01-19] MEDS ORDERED: ONDANSETRON 4 MG/2 ML VIAL IV PRN (23:18)
[2019-01-19] MEDS ORDERED: ACETAMINOPHEN 325 MG TABLET PO PRN (23:18)
[2019-01-20 00:06] LABS: ABG Base Excess 9.2 MMOL/L (-2.5-2.5); ABG HCO3 32.8 MMOL/L (20-26); ABG Oxygen Saturation 92.5 % (95-100); ABG PH 7.291 (7.35-7.45); ABG PO2 70.2 MM HG (80-95); ABG TCO2 35.5 MMOL/L (23-27); Allen Test Positive; Pt O2 Delivery Device Room Air
[2019-01-20] MEDS ORDERED: ALBUTEROL 2.5 MG/3 ML NEB RESP TX PRN (00:06)
[2019-01-20] MEDS ORDERED: ALBUTEROL 0.63 MG/3 ML NEB RESP TX PRN (00:06)
[2019-01-20] MEDS: MONTELUKAST 10 MG TABLET PO SCH ×2 (00:42→20:21)
[2019-01-20] MEDS: ALBUTEROL/IPRATROPIUM 3 ML NEB RESP TX SCH ×5 (00:45→21:02)
[2019-01-20 00:49] LABS: ABG HCO3 33.5 MMOL/L (20-26); ABG Oxygen Saturation 85.3 % (95-100); ABG PH 7.326 (7.35-7.45); ABG PO2 51.6 MM HG (80-95); ABG TCO2 35.4 MMOL/L (23-27); Allen Test Positive
[2019-01-20 00:52] LABS: ABG PCO2 75.6 MM HG (35-48)
[2019-01-20 04:19] LABS: ABG Base Excess 10.5 MMOL/L (-2.5-2.5); ABG PH 7.271 (7.35-7.45); ABG PO2 53.8 MM HG (80-95); ABG TCO2 37.8 MMOL/L (23-27); Allen Test Positive; Pt O2 Delivery Device BIPAP
[2019-01-20 04:21] LABS: ABG PCO2 90.8 MM HG (35-48)
[2019-01-20] MEDS ORDERED: ETOMIDATE 20 MG/10 ML VIAL IV ONE (04:38)
[2019-01-20] MEDS ORDERED: SUCCINYLCHOLINE 200 MG/10 ML VIAL ONE (04:39)
[2019-01-20 05:38] LABS: ABG Base Excess 9.9 MMOL/L (-2.5-2.5); ABG HCO3 33.5 MMOL/L (20-26); ABG Oxygen Saturation 88.5 % (95-100); ABG PH 7.276 (7.35-7.45); ABG PO2 58.4 MM HG (80-95); Allen Test Positive
[2019-01-20 05:40] LABS: ABG PCO2 87.9 MM HG (35-48)
[2019-01-20] MEDS: methylPREDNISolone SOD SUC 40 MG/1 ML VIAL IV SCH ×3 (05:41→20:29)
[2019-01-20] MEDS ORDERED: FUROSEMIDE 20 MG/2 ML VIAL IV SCH (08:00)
[2019-01-20 08:06] LABS: ABG Base Excess 11.4 MMOL/L (-2.5-2.5); ABG HCO3 41.5 MMOL/L (20-26); ABG Oxygen Saturation 93.9 % (95-100); ABG PH 7.282 (7.35-7.45); ABG PO2 78.1 MM HG (80-95); ABG TCO2 44.2 MMOL/L (23-27); Allen Test Positive; Pt O2 Delivery Device BIPAP
[2019-01-20 08:09] LABS: ABG PCO2 89.9 MM HG (35-48)
[2019-01-20] MEDS ORDERED: Fluticasone Furoate-Vilanterol [Breo Ellipta] 1 PUFF INH SCH (09:00)
[2019-01-20] MEDS: LISINOPRIL 20 MG TABLET PO SCH ×2 (09:34→20:21)
[2019-01-20] MEDS: FUROSEMIDE 40 MG/4 ML VIAL IV SCH ×2 (09:34→17:24)
[2019-01-20] MEDS: THEOPHYLLINE ER (24 HR) 300 MG CAPSULE PO SCH (09:34)
[2019-01-20] MEDS: carvediloL 25 MG TABLET PO SCH ×2 (09:35→17:24)
[2019-01-20] MEDS ORDERED: POTASSIUM CHLORIDE 20 MEQ TABLET PO PRN (15:10)
[2019-01-20 16:01] LABS: Osmolality,Calculated 279.8 MOS/KG (273-304)
[2019-01-20] MEDS: cefTRIAXone 1,000 MG in SYRINGE 1 EACH IV SCH (20:25)
[2019-01-20] MEDS: AZITHROMYCIN INJ 500 MG in SODIUM CHLORIDE 0.9% 250 ML IV SCH (21:11)
[2019-01-21] MEDS: ALBUTEROL/IPRATROPIUM 3 ML NEB RESP TX SCH ×7 (01:09→22:49)
[2019-01-21 03:47] LABS: Basophils % 0.1 % (0.0-0.8); Hemoglobin 10.6 GM/DL (12.0-16.0); Immature Granulocytes % 1.4 %; Immature Granulocytes Absolute 0.19 #; Lymphocytes # 0.6 10*3/uL (1.4-4.0); Lymphocytes % 4.3 % (21.3-54.2); Mean Corpuscular HGB Conc 30.3 GM/DL (32-36); Mean Corpuscular Volume 97.8 FL (87-102); Mean Platelet Volume 11.6 FL (9.6-12.0); Monocytes % 1.4 % (1.7-12.7); Neutrophils % 92.8 % (38.7-73.9); Platelet Count 150 T/CUMM (130-400); Red Blood Count 3.58 MC/CUMM (3.8-5.5); Red Cell Distribution Width 14.2 % (9.3-17.3); White Blood Count 14.1 T/CUMM (4-12)
[2019-01-21 04:07] LABS: Calcium 8.4 MG/DL (8.5-10.1); Osmolality,Calculated 287.5 MOS/KG (273-304)
[2019-01-21 04:32] LABS: ABG Base Excess 10.3 MMOL/L (-2.5-2.5); ABG Oxygen Saturation 95.7 % (95-100); ABG PH 7.266 (7.35-7.45); ABG PO2 83.5 MM HG (80-95); ABG TCO2 37.6 MMOL/L (23-27); Allen Test Positive; Pt O2 Delivery Device BIPAP
[2019-01-21 04:33] LABS: Anisocytosis Slight; Lymphocytes 2 % (20-55); Macrocytosis Slight; Platelet Estimate Adequate; Segmented Neutrophils 96 % (50-85); Total Cells Counted 100
[2019-01-21 04:35] LABS: ABG PCO2 90.5 MM HG (35-48)
[2019-01-21] MEDS: methylPREDNISolone SOD SUC 40 MG/1 ML VIAL IV SCH ×3 (05:05→21:26)
[2019-01-21] MEDS ORDERED: FUROSEMIDE 20 MG/2 ML VIAL ONE (08:03)
[2019-01-21] MEDS: carvediloL 25 MG TABLET PO SCH ×2 (08:24→16:32)
[2019-01-21] MEDS: FUROSEMIDE 40 MG/4 ML VIAL IV SCH ×2 (08:27→16:33)
[2019-01-21] MEDS: LISINOPRIL 20 MG TABLET PO SCH ×2 (10:22→21:22)
[2019-01-21] MEDS: THEOPHYLLINE ER (24 HR) 300 MG CAPSULE PO SCH (10:22)
[2019-01-21] MEDS: MONTELUKAST 10 MG TABLET PO SCH (21:22)
[2019-01-21] MEDS: cefTRIAXone 1,000 MG in SYRINGE 1 EACH IV SCH (21:24)
[2019-01-21] MEDS: AZITHROMYCIN INJ 500 MG in SODIUM CHLORIDE 0.9% 250 ML IV SCH (21:28)
[2019-01-22] MEDS: ALBUTEROL/IPRATROPIUM 3 ML NEB RESP TX SCH ×6 (02:37→23:29)
[2019-01-22 05:44] LABS: Basophils % 0.2 % (0.0-0.8); Hematocrit 37.8 VOL% (35.7-47.0); Hemoglobin 11.4 GM/DL (12.0-16.0); Immature Granulocytes % 2.7 %; Lymphocytes # 0.6 10*3/uL (1.4-4.0); Lymphocytes % 3.1 % (21.3-54.2); Mean Corpuscular HGB Conc 30.2 GM/DL (32-36); Mean Corpuscular Volume 97.4 FL (87-102); Mean Platelet Volume 11.8 FL (9.6-12.0); Platelet Count 184 T/CUMM (130-400); Red Blood Count 3.88 MC/CUMM (3.8-5.5); Red Cell Distribution Width 14.2 % (9.3-17.3); White Blood Count 18.7 T/CUMM (4-12)
[2019-01-22 06:05] LABS: Calcium 8.7 MG/DL (8.5-10.1); Osmolality,Calculated 287.7 MOS/KG (273-304)
[2019-01-22 06:19] LABS: Band Neutrophils 1 % (0-10); Lymphocytes 2 % (20-55); Segmented Neutrophils 97 % (50-85); Total Cells Counted 100
[2019-01-22 06:20] LABS: Hypochromasia Slight; Platelet Estimate Decreased
[2019-01-22] MEDS: LISINOPRIL 20 MG TABLET PO SCH ×2 (09:07→21:33)
[2019-01-22] MEDS: THEOPHYLLINE ER (24 HR) 300 MG CAPSULE PO SCH (09:07)
[2019-01-22] MEDS: carvediloL 25 MG TABLET PO SCH ×2 (09:08→17:00)
[2019-01-22] MEDS: methylPREDNISolone SOD SUC 40 MG/1 ML VIAL IV SCH ×2 (09:08→21:33)
[2019-01-22] MEDS: FUROSEMIDE 40 MG/4 ML VIAL IV SCH (09:08)
[2019-01-22] MEDS: MONTELUKAST 10 MG TABLET PO SCH (21:33)
[2019-01-22] MEDS: cefTRIAXone 1,000 MG in SYRINGE 1 EACH IV SCH (21:33)
[2019-01-23] MEDS: ALBUTEROL/IPRATROPIUM 3 ML NEB RESP TX SCH ×2 (03:26→08:12)
[2019-01-23 07:42] VITALS: BP 157/81
[2019-01-23] MEDS ORDERED: AZITHROMYCIN 250 MG TABLET PO SCH (09:00)
[2019-01-23] MEDS ORDERED: FUROSEMIDE 40 MG TABLET PO SCH (09:00)
[2019-01-23] MEDS: THEOPHYLLINE ER (24 HR) 300 MG CAPSULE PO SCH (09:13)
[2019-01-23] MEDS: LISINOPRIL 20 MG TABLET PO SCH (09:13)
[2019-01-23] MEDS: methylPREDNISolone SOD SUC 40 MG/1 ML VIAL IV SCH (09:13)
[2019-01-23] MEDS: carvediloL 25 MG TABLET PO SCH (09:13)
== END 2019-01-23 11:21 | disposition home health service (06) | DRG 291 ==
LOC: N.ED 20:43 → SUATTDRO 23:18 → N.EDINP 23:18 → N.5E 01-20 00:03 → N.CC 01-20 04:53 → N.2E 01-21 13:40
PROVIDERS: ADMIT Hospitalist; ATTEND Internal Medicine

== ENCOUNTER 2020-08-30 07:13 | Inpatient (IN) ==
[2020-08-30] MEDS ORDERED: methylPREDNISolone SOD SUC 125 MG/2 ML VIAL IV STA (07:33)
[2020-08-30] MEDS ORDERED: ALBUTEROL NEB SOLN 5 MG/ML 20 ML/BOTTLE CONT NEB STA ×2 (07:33→09:20)
[2020-08-30 08:24] LABS: Basophils # 0.1 10*3/uL (0.0-0.2); Basophils % 0.5 % (0.0-0.8); Eosinophils # 0.2 10*3/uL (0.0-0.87); Eosinophils % 1.7 % (0.00-10.9); Hematocrit 41.2 VOL% (35.7-47.0); Hemoglobin 13.2 GM/DL (12.0-16.0); Immature Granulocytes % 0.5 %; Immature Granulocytes Absolute 0.06 #; Lymphocytes # 1.6 10*3/uL (1.4-4.0); Lymphocytes % 13.6 % (21.3-54.2); Mean Corpuscular Volume 94.3 FL (87-102); Mean Platelet Volume 10.8 FL (9.6-12.0); Neutrophils % 73.7 % (38.7-73.9); Platelet Count 224 T/CUMM (130-400); Red Blood Count 4.37 MC/CUMM (3.8-5.5); Red Cell Distribution Width 14.3 % (9.3-17.3); White Blood Count 11.7 T/CUMM (4-12)
[2020-08-30 08:45] LABS: Calcium 9.7 MG/DL (8.5-10.1); Osmolality,Calculated 280.4 MOS/KG (273-304); Potassium 3.3 MMOL/L (3.5-5.1)
[2020-08-30] MEDS ORDERED: MAGNESIUM SULF RIDER 2 GM/50 ML PREMIX IV STA (09:16)
[2020-08-30] MEDS ORDERED: GLUCAGON 1 MG VIAL IM PRN (09:46)
[2020-08-30] MEDS ORDERED: DEXTROSE 50% 25 GM/50 ML VIAL IV PRN (09:46)
[2020-08-30] MEDS ORDERED: POTASSIUM CHLORIDE 20 MEQ TABLET PO STA (09:49)
[2020-08-30] MEDS ORDERED: hydrALAZINE 20 MG/1 ML VIAL IV PRN (10:22)
[2020-08-30] MEDS: ALBUTEROL/IPRATROPIUM 3 ML NEB RESP TX SCH ×4 (11:03→20:17)
[2020-08-30] MEDS: ENOXAPARIN 40 MG/0.4 ML SYRINGE SUBCUT SCH (11:45)
[2020-08-30] MEDS: AZITHROMYCIN INJ 500 MG in SODIUM CHLORIDE 0.9% 250 ML IV SCH (13:45)
[2020-08-30] MEDS: methylPREDNISolone SOD SUC 40 MG/1 ML VIAL IV SCH ×3 (15:25→21:07)
[2020-08-30] MEDS: DICLOFENAC SODIUM 75 MG TABLET PO SCH (21:07)
[2020-08-30] MEDS: lisinopriL 20 MG TABLET PO SCH (21:07)
[2020-08-30] MEDS: carvediloL 25 MG TABLET PO SCH (21:07)
[2020-08-31] MEDS: ALBUTEROL/IPRATROPIUM 3 ML NEB RESP TX SCH ×7 (00:51→23:59)
[2020-08-31 04:20] LABS: Basophils % 0.2 % (0.0-0.8); Hematocrit 40.7 VOL% (35.7-47.0); Immature Granulocytes % 1.2 %; Immature Granulocytes Absolute 0.17 #; Lymphocytes % 7.3 % (21.3-54.2); Mean Corpuscular HGB Conc 31.9 GM/DL (32-36); Mean Corpuscular Volume 94.4 FL (87-102); Mean Platelet Volume 10.2 FL (9.6-12.0); Monocytes % 1.6 % (1.7-12.7); Neutrophils % 89.7 % (38.7-73.9); Platelet Count 208 T/CUMM (130-400); Red Blood Count 4.31 MC/CUMM (3.8-5.5); Red Cell Distribution Width 14.2 % (9.3-17.3)
[2020-08-31 04:53] LABS: Calcium 9.4 MG/DL (8.5-10.1); Osmolality,Calculated 285.5 MOS/KG (273-304); Potassium 4.4 MMOL/L (3.5-5.1)
[2020-08-31] MEDS: methylPREDNISolone SOD SUC 40 MG/1 ML VIAL IV SCH (04:59)
[2020-08-31] MEDS: carvediloL 25 MG TABLET PO SCH ×2 (08:45→20:47)
[2020-08-31] MEDS: DICLOFENAC SODIUM 75 MG TABLET PO SCH ×2 (08:45→20:47)
[2020-08-31] MEDS: lisinopriL 20 MG TABLET PO SCH ×2 (08:45→20:47)
[2020-08-31] MEDS: predniSONE 20 MG TABLET PO SCH ×2 (08:46→20:47)
[2020-08-31] MEDS ORDERED: lisinopriL 20 MG TABLET PO SCH (09:00)
[2020-08-31] MEDS: AZITHROMYCIN INJ 500 MG in SODIUM CHLORIDE 0.9% 250 ML IV SCH (10:21)
[2020-08-31] MEDS: ENOXAPARIN 40 MG/0.4 ML SYRINGE SUBCUT SCH (10:22)
[2020-08-31] MEDS ORDERED: ALBUTEROL 0.63 MG/3 ML NEB RESP TX PRN (13:04)
[2020-08-31] MEDS ORDERED: BENZONATATE 100 MG CAPSULE PO PRN (13:10)
[2020-09-01] MEDS: ALBUTEROL/IPRATROPIUM 3 ML NEB RESP TX SCH ×2 (04:00→07:52)
[2020-09-01 05:10] LABS: Basophils % 0.1 % (0.0-0.8); Hematocrit 40.4 VOL% (35.7-47.0); Hemoglobin 12.9 GM/DL (12.0-16.0); Lymphocytes # 1.4 10*3/uL (1.4-4.0); Lymphocytes % 6.3 % (21.3-54.2); Mean Corpuscular HGB Conc 31.9 GM/DL (32-36); Mean Corpuscular Volume 95.1 FL (87-102); Mean Platelet Volume 10.9 FL (9.6-12.0); Monocytes % 2.8 % (1.7-12.7); Neutrophils % 89.5 % (38.7-73.9); Platelet Count 224 T/CUMM (130-400); Red Blood Count 4.25 MC/CUMM (3.8-5.5); Red Cell Distribution Width 14.2 % (9.3-17.3); White Blood Count 21.8 T/CUMM (4-12)
[2020-09-01 05:34] LABS: Calcium 9.4 MG/DL (8.5-10.1); Osmolality,Calculated 281.2 MOS/KG (273-304); Potassium 4.2 MMOL/L (3.5-5.1)
[2020-09-01 05:37] LABS: Hypochromasia Slight; Lymphocytes 5 % (20-55); Microcytosis Slight; Platelet Estimate Adequate; Segmented Neutrophils 94 % (50-85); Total Cells Counted 100
[2020-09-01] MEDS ORDERED: ASPIRIN CHEW 81 MG TABLET PO SCH (09:00)
[2020-09-01] MEDS: predniSONE 20 MG TABLET PO SCH (10:00)
[2020-09-01] MEDS: carvediloL 25 MG TABLET PO SCH (10:00)
[2020-09-01] MEDS ORDERED: FUROSEMIDE 80 MG TABLET PO SCH (10:00)
[2020-09-01] MEDS: DICLOFENAC SODIUM 75 MG TABLET PO SCH (10:00)
[2020-09-01] MEDS: lisinopriL 20 MG TABLET PO SCH (10:01)
[2020-09-01] MEDS: ENOXAPARIN 40 MG/0.4 ML SYRINGE SUBCUT SCH (10:19)
[2020-09-01] MEDS: AZITHROMYCIN INJ 500 MG in SODIUM CHLORIDE 0.9% 250 ML IV SCH (10:19)
[2020-09-01 13:12] VITALS: BP 144/93
== END 2020-09-01 13:08 | disposition home or self-care (01) | DRG 191 ==
LOC: N.ED 07:13 → N.EDINP 09:46 → SUATTDRO 09:46 → N.4E 16:04
PROVIDERS: ADMIT Internal Medicine; ATTEND Internal Medicine